=== PATIENT | female | born 1950 | race Asian ===

== ENCOUNTER 2016-10-19 08:00 | Outpatient (CLI) | payer MEDICARE, MEDICAID | END 2016-10-19 08:01 | DX: E11.65 Type 2 diabetes mellitus with hyperglycemia (principal); I10 Essential (primary) hypertension; E55.9 Vitamin D deficiency, unspecified ==

== ENCOUNTER 2017-08-25 11:36 | Outpatient (CLI) | payer MEDICARE, MEDICAID ==
[2017-08-25 19:17] LABS: BASOPHILS % (AUTO) 0.5 %; EOSINOPHILS # (AUTO) 0.1 10^3/uL (0.0-0.7); EOSINOPHILS % (AUTO) 1.9 %; HGB - HEMOGLOBIN 12.3 g/dL (12.0-16.0); LYMPHOCYTES # (AUTO) 1.9 10^3/uL (1.5-3.5); LYMPHOCYTES % (AUTO) 24.6 %; MEAN CORPUSCULAR HEMOGLOBIN 30.1 pg (27.0-31.0); MEAN CORPUSCULAR HGB CONC 33.1 g/dL (32.0-36.0); MEAN PLATELET VOLUME 9.5 fL (7.9-10.8); MONOCYTES # (AUTO) 0.3 10^3/uL (0.0-1.0); MONOCYTES % (AUTO) 4.4 %; NEUTROPHILS # (AUTO) 5.4 10^3/uL (1.5-6.6); NEUTROPHILS % (AUTO) 68.6 %; PLT - PLATELET COUNT 273 10^3/uL (130-450); RED BLOOD COUNT 4.08 10^6/uL (4.20-5.40); RED CELL DISTRIBUTION WIDTH 12.9 % (12.0-15.0); WHITE BLOOD COUNT 7.9 x10^3/uL (4.8-10.8)
[2017-08-25 19:48] LABS: ALBUMIN 3.9 g/dL (3.2-5.5); ALBUMIN/GLOBULIN RATIO 1.3 (1.0-2.2); ALKALINE PHOSPHATASE 63 IU/L (42-121); ALT ALANINE AMINOTRANSFERASE 12 IU/L (10-60); AST ASPARTATE AMINOTRANSFERASE 18 IU/L (10-42); BILIRUBIN,TOTAL 0.8 mg/dL (0.2-1.0); BUN - BLOOD UREA NITROGEN 23 mg/dL (6-20); CARBON DIOXIDE - CO2 25 mmol/L (21-32); CHLORIDE 105 mmol/L (101-111); CHOLESTEROL 154 mg/dL; CREATININE 1.4 mg/dL (0.4-1.0); GFR - MDRD 37 (>89); GLUCOSE 223 mg/dL (70-100); HDL CHOLESTEROL 51 mg/dL; LDL CHOLESTEROL,CALCULATED 85 mg/dL; LDL/HDL RATIO 1.7 (<4.4); SODIUM 139 mmol/L (135-145); TOTAL PROTEIN 6.9 g/dL (6.7-8.2); VLDL CHOLESTEROL 18 mg/dL
[2017-08-25 20:04] LABS: HEMOGLOBIN A1C 1.16 g/dL; HEMOGLOBIN A1C % 10.3 % (4.6-6.2)
== END 2017-08-25 11:37 | disposition home or self-care (01) ==
LOC: LAB.N 11:36
PROVIDERS: ATTEND Family Medicine
DX: E11.65 Type 2 diabetes mellitus with hyperglycemia (principal); E55.9 Vitamin D deficiency, unspecified; I10 Essential (primary) hypertension
CPT/HCPCS: 36415; 80053; 80061; 82306; 83036; 83721; 84443; 85025

== ENCOUNTER 2017-10-21 10:51 | Outpatient (CLI) | payer MEDICARE, MEDICAID ==
--- NOTE | 2017-10-21 19:03 | Ultrasound Report ---
RENAL ULTRASOUND: 10/21/2017 CLINICAL INDICATION: Chronic kidney disease, hypertension. COMPARISON: 01/17/2010 TECHNIQUE: Real-time scanning was performed with customer relations representative static images obtained. FINDINGS: The right kidney measures 9.4 x 4.2 x 3.7 cm, and the left kidney measures 9.5 x 4.2 x 3.7 cm. No hydronephrosis, focal renal lesion, or perinephric collection is present. Prevoid, the urinary bladder measures 8.8 x 7.3 x 5.6 cm, yielding a prevoid volume of 187 mL. The bladder wall appears normal. Bilateral ureteral jets are seen. No significant postvoid residual is present. IMPRESSION: NORMAL RENAL ULTRASOUND. TD: 10/21/2017 19:02
== END 2017-10-21 10:52 | disposition home or self-care (01) ==
LOC: DI 10:51
PROVIDERS: ATTEND Family Medicine
DX: I12.9 Hypertensive chronic kidney disease with stage 1 through stage 4 chronic kidney disease, or unspecified chronic kidney disease (principal); N18.3 Chronic kidney disease, stage 3 (moderate)
CPT/HCPCS: 76770

== ENCOUNTER 2017-10-30 04:04 | Emergency (ER) | payer MEDICARE, MEDICAID ==
[2017-10-30 04:59] LABS: BASOPHILS % (AUTO) 0.2 %; EOSINOPHILS # (AUTO) 0.1 10^3/uL (0.0-0.7); EOSINOPHILS % (AUTO) 0.4 %; HGB - HEMOGLOBIN 12.2 g/dL (12.0-16.0); LYMPHOCYTES # (AUTO) 1.4 10^3/uL (1.5-3.5); LYMPHOCYTES % (AUTO) 7.6 %; MEAN CORPUSCULAR HEMOGLOBIN 30.2 pg (27.0-31.0); MEAN CORPUSCULAR HGB CONC 33.8 g/dL (32.0-36.0); MEAN CORPUSCULAR VOLUME 89.3 fL (81.0-99.0); MEAN PLATELET VOLUME 9.8 fL (7.9-10.8); MONOCYTES # (AUTO) 1.1 10^3/uL (0.0-1.0); MONOCYTES % (AUTO) 6.1 %; NEUTROPHILS # (AUTO) 15.8 10^3/uL (1.5-6.6); NEUTROPHILS % (AUTO) 85.7 %; PLT - PLATELET COUNT 267 10^3/uL (130-450); RED BLOOD COUNT 4.05 10^6/uL (4.20-5.40); RED CELL DISTRIBUTION WIDTH 12.9 % (12.0-15.0); WHITE BLOOD COUNT 18.5 x10^3/uL (4.8-10.8)
[2017-10-30 05:09] LABS: ALBUMIN/GLOBULIN RATIO 1.3 (1.0-2.2); BILIRUBIN,TOTAL 1.2 mg/dL (0.2-1.0); CALCIUM 9.2 mg/dL (8.5-10.3); CREATININE 1.4 mg/dL (0.4-1.0); TOTAL PROTEIN 7.1 g/dL (6.7-8.2)
--- NOTE | 2017-10-30 05:34 | ED Physician Documentation ---
History of Present Illness - Stated complaint Stated Complaint: WEAK ALL OVER - Chief complaint Chief Complaint: Neuro - History obtained from History obtained from: Patient, Family - History of Present Illness Timing: How many days ago (2-3) Improved by: no ameliorating factors Worsened by: no exacerbating factors - Additonal information Additional information: cheif complaint is generalized weakness x 1-2 days, but also notes epigastric pain x 2-3 days, episodic and without apparent exacerbating or ameliorating factors Review of Systems Constitutional: reports: Reviewed and negative Cardiac: reports: Reviewed and negative Respiratory: reports: Reviewed and negative GI: reports: Abdominal Pain. denies: Nausea, Vomiting : denies: Dysuria, Frequency Musculoskeletal: reports: Reviewed and negative Neurologic: reports: Generalized weakness. denies: Focal weakness, Numbness, Confused, Altered mental status, Headache PD PAST MEDICAL HISTORY - Past Medical History Past Medical History: Yes Cardiovascular: Hypertension Neuro: CVA, TIA Endocrine/Autoimmune: Type 1 diabetes Musculoskeletal: Osteoarthritis - Past Surgical History Past Surgical History: No HEENT: Cataracts - Present Medications Home Medications: Ambulatory Orders Medication Instructions Recorded Confirmed Insulin Glargine,Hum.rec.anlog 20 units SUBQ 2100 02/22/13 10/31/17 [Lantus] Lisinopril [Prinivil] 20 mg PO DAILY 02/22/13 10/31/17 Atorvastatin [Lipitor] 10 mg PO QPM 10/23/14 10/31/17 amLODIPine [Norvasc] 10 mg PO DAILY 10/23/14 10/31/17 Clopidogrel [Plavix] 75 mg PO DAILY 01/02/16 10/31/17 cloNIDine [Catapres] 0.2 mg PO BID 10/30/17 10/31/17 hydroCHLOROthiazide 12.5 mg PO DAILY 10/30/17 10/31/17 [Hydrochlorothiazide] Aspirin [Aspirin EC] 81 mg PO DAILY 10/31/17 10/31/17 Insulin Aspart [NovoLOG] 12 unit SUBQ TIDWM 10/31/17 10/31/17 - Allergies Allergies/Adverse Reactions: Allergies Allergy/AdvReac Type Severity Reaction Status Date / Time No Known Drug Allergies Allergy Verified 10/30/17 04:29 - Social History Does the pt smoke?: No Smoking Status: Never smoker Does the pt drink ETOH?: No Does the pt have substance abuse?: No - Immunizations Immunizations are current?: No - POLST Patient has POLST: No PD ED PE NORMAL - Vitals Vital signs reviewed: Yes - General General: Alert and oriented X 3, No acute distress, Well developed/nourished - HEENT HEENT: Moist mucous membranes - Neck Neck: Supple, no meningeal sign - Cardiac Cardiac: RRR, No murmur - Respiratory Respiratory: No respiratory distress, Clear bilaterally - Abdomen Abdomen: Soft, Non tender - Derm Derm: Normal color, Warm and dry - Extremities Extremities: No edema - Neuro Neuro: Alert and oriented X 3, administrative fellow 2-12 intact, No motor deficit, No sensory deficit, Normal speech Eye Opening: Spontaneous Motor: Obeys Commands Verbal: Oriented GCS Score: 15 Results - Vitals Vitals: Oxygen O2 Source Room air - EKG (time done) No standard instances Rate: Rate (enter#) (120) Rhythm: Sinus tachycardia [place]: Normal Intervals: Normal [place] QRS: Normal Ischemia: Normal ST segments - Labs Labs: Laboratory Tests 10/30/17 10/30/17 10/30/17 04:23 04:23 04:23 WBC 18.5 H RBC 4.05 L Hgb 12.2 Hct 36.2 L MCV 89.3 MCH 30.2 MCHC 33.8 RDW 12.9 Plt Count 267 MPV 9.8 Neut # 15.8 H Lymph # 1.4 L [place] # 1.1 H Eos # 0.1 Baso # 0.0 Absolute Nucleated RBC 0.00 Nucleated RBC % 0.0 Sodium 135 Potassium 3.5 Chloride 98 L Carbon Dioxide 26 Anion Gap 11.0 BUN 35 H Creatinine 1.4 H Estimated GFR (MDRD) 37 L Glucose 324 H Calcium 9.2 Total Bilirubin 1.2 H AST 15 ALT 11 Alkaline Phosphatase 74 Troponin I < 0.04 Total Protein 7.1 Albumin 4.0 Globulin 3.1 Albumin/Globulin Ratio 1.3 Lipase 13 L Urine Color Urine Clarity Urine pH Ur Specific [place] Urine Protein Urine Glucose (UA) Urine Ketones Urine Occult Blood Urine Nitrite Urine Bilirubin Urine Urobilinogen Ur Leukocyte Esterase Urine RBC Urine WBC Ur Squamous Epith Cells Urine Bacteria Ur Microscopic Review Urine Culture Comments 10/30/17 05:45 WBC RBC Hgb Hct MCV MCH MCHC RDW Plt Count MPV Neut # Lymph # [place] # Eos # Baso # Absolute Nucleated RBC Nucleated RBC % Sodium Potassium Chloride Carbon Dioxide Anion Gap BUN Creatinine Estimated GFR (MDRD) Glucose Calcium Total Bilirubin AST ALT Alkaline Phosphatase Troponin I Total Protein Albumin Globulin Albumin/Globulin Ratio Lipase Urine Color YELLOW Urine Clarity CLEAR Urine pH 6.0 Ur Specific [place] 1.010 Urine Protein 100 H Urine Glucose (UA) >=1000 H Urine Ketones NEGATIVE Urine Occult Blood TRACE-INTA Urine Nitrite NEGATIVE Urine Bilirubin NEGATIVE Urine Urobilinogen 0.2 (NORMAL) Ur Leukocyte Esterase NEGATIVE Urine RBC 0-5 Urine WBC 4-5 Ur Squamous Epith Cells MOD Squamous H Urine Bacteria Few Ur Microscopic Review INDICATED Urine Culture Comments NOT INDICATED - Rads (name of study) chest xray Radiology: Prelim report reviewed, See rad report PD MEDICAL DECISION MAKING - ED course Complexity details: reviewed results, re-evaluated patient (tachycardia resolved during ED stay after IV fluids. she was able to ambulate to and from bathroom without assistance), considered differential, d/w patient Departure - Departure Disposition: 01 Home, Self Care Clinical Impression: Weakness Condition: Good Instructions: ED Weakness [facility] Follow-Up: Ranjan Chance MD [Primary Care Provider] - Discharge Date/Time: 10/30/17 08:02
[2017-10-30 05:55] LABS: BILIRUBIN,URINE NEGATIVE (NEGATIVE); GLUCOSE, URINE (UA) >=1000 mg/dL (NEGATIVE); KETONES,URINE (UA) NEGATIVE (NEGATIVE); LEUKOCYTE ESTERASE, URINE NEGATIVE (NEGATIVE); NITRITE,URINE NEGATIVE (NEGATIVE); OCCULT BLOOD,URINE TRACE-INTA (NEGATIVE); PROTEIN,URINE 100 mg/dL (NEGATIVE); UROBILINOGEN,URINE 0.2 (NORMAL) E.U./dL (NORMAL)
[2017-10-30] MEDS ORDERED: SODIUM CHLORIDE 0.9% 500 ML IV STA (05:56)
[2017-10-30 06:04] LABS: BACTERIA,URINE Few /HPF (None Seen); CLARITY,URINE CLEAR (CLEAR); RBC,URINE 0-5 /HPF (0-5); SQUAMOUS EPITHELIAL CELL,UR MOD Squamous (<= Few)
--- NOTE | 2017-10-30 06:55 | XRAY Report ---
EXAM: CHEST RADIOGRAPHY EXAM DATE: 10/30/2017 06:34 AM. CLINICAL HISTORY: Weakness, abnormal breath sounds. COMPARISON: 01/05/2016. TECHNIQUE: 2 views. FINDINGS: Lungs/Pleura: No alveolar consolidation or pleural effusion seen. No pneumothorax. Mediastinum: Heart size upper normal. Other: Chronic right acromioclavicular separation. IMPRESSION: 1. Borderline heart size. No acute abnormality seen. [facility] Referring Provider Line: [phone] SITE ID: [id number]
--- NOTE | 2017-10-30 06:55 | XRAY Preliminary Report ---
Exam: XR CHEST 2 VIEW X-RAY IMPRESSION: 1. Borderline heart size. No acute abnormality seen. [facility] SITE ID: [id number]
[2017-10-30 07:10] VITALS: BP 167/75
== END 2017-10-30 08:02 | disposition home or self-care (01) ==
LOC: ED 04:04
DX: R53.1 Weakness (principal); I10 Essential (primary) hypertension; E10.9 Type 1 diabetes mellitus without complications; Z86.73 Personal history of transient ischemic attack (TIA), and cerebral infarction without residual deficits; M19.90 Unspecified osteoarthritis, unspecified site; Z79.4 Long term (current) use of insulin; Z79.82 Long term (current) use of aspirin; Z79.02 Long term (current) use of antithrombotics/antiplatelets
CPT/HCPCS: 36415; 71046; 80053; 81001; 81003; 83690; 84484; 85025; 87086; 93005; 99285

== ENCOUNTER 2017-10-30 14:06 | Inpatient (IN) | payer MEDICARE, MEDICAID ==
--- NOTE | 2017-10-30 15:11 | ED Physician Documentation ---
PD HPI FOCAL NEURO - Stated complaint Stated Complaint: LEG NUMBNESS - Chief complaint Chief Complaint: Ext Problem - History obtained from History obtained from: Patient, Family - History of Present Illness Timing - onset: Enter time (1100), Today Timing - duration: Hours Timing - details: Abrupt onset, Still present Time of symptom onset unknown: Time of onset unknown Severity of deficit: Moderate Weakness: Arm, Hand, Leg, Foot, Left Numbness: Hand, Leg, Left Associated symptoms: Nausea / vomiting Contributing factors: negative: Anticoagulated Baseline status: positive: A&OX3, ambulatory, indep Similar symptoms before: Diagnosis (CVA) Recently seen: Emergency Dept - Additional information Additional information: 67-year-old [place] woman was seen in the emergency department earlier today for generalized weakness. She was able to speak normally and walk normally on discharge and this morning at her home she was walking and had a fall with left leg weakness. She continues to have left with leg weakness she has some dysarthric speech according to her friend and she has some weakness and incoordination of left arm and hand. She thinks this fall happened around 11: 00 this morning and her friend notes that she was normal last night when she talked to her last. She is documented here in the emergency department as being normal at discharge from the emergency department at about 830 this morning. Review of Systems Constitutional: reports: Fatigue. denies: Fever, Chills Eyes: denies: Decreased vision Ears: denies: Ear pain Nose: denies: Rhinorrhea / runny nose, Congestion Throat: denies: Sore throat Cardiac: denies: Chest pain / pressure, Palpitations Respiratory: denies: Dyspnea, Cough GI: reports: Nausea, Vomiting. denies: Abdominal Pain : denies: Dysuria, Frequency Skin: denies: Rash, Lesions Musculoskeletal: denies: Neck pain, Back pain, Extremity pain Neurologic: reports: Generalized weakness, Focal weakness, Numbness, Difficulty speaking. denies: Confused, Altered mental status, Head injury, LOC PD PAST MEDICAL HISTORY - Past Medical History Cardiovascular: Hypertension Neuro: CVA, TIA Endocrine/Autoimmune: Type 2 diabetes Musculoskeletal: Osteoarthritis - Past Surgical History Past Surgical History: No HEENT: Cataracts - Present Medications Home Medications: Ambulatory Orders Medication Instructions Recorded Confirmed Insulin Glargine,Hum.rec.anlog 25 units SUBQ 2100 02/22/13 01/03/16 [Lantus] Lisinopril [Prinivil] 20 mg PO DAILY 02/22/13 01/03/16 Atorvastatin [Lipitor] 10 mg PO QPM 10/23/14 01/03/16 amLODIPine [Norvasc] 10 mg PO DAILY 10/23/14 01/03/16 Insulin Lispro [Humalog Kwikpen] 10 unit SQ BID 07/15/15 01/03/16 Clopidogrel [Plavix] 75 mg PO DAILY 01/02/16 01/03/16 cloNIDine [Catapres] 0.2 mg PO BID 10/30/17 10/30/17 hydroCHLOROthiazide 12.5 mg PO DAILY 10/30/17 10/30/17 [Hydrochlorothiazide] - Allergies Allergies/Adverse Reactions: Allergies Allergy/AdvReac Type Severity Reaction Status Date / Time No Known Drug Allergies Allergy Verified 10/30/17 04:29 - Social History Does the pt smoke?: No Smoking Status: Never smoker Does the pt drink ETOH?: No Does the pt have substance abuse?: No - Immunizations Immunizations are current?: No - POLST Patient has POLST: No PD ED PE NORMAL - Vitals Vital signs reviewed: Yes (Hypertensive mild) - General General: No acute distress, Well developed/nourished - HEENT HEENT: Atraumatic, PERRL, EOMI - Neck Neck: Supple, no meningeal sign, No bony TTP - Cardiac Cardiac: RRR, No murmur - Respiratory Respiratory: No respiratory distress, Clear bilaterally - Abdomen Abdomen: Soft, Non tender - Back Back: No CVA TTP, No spinal TTP - Derm Derm: Normal color, Warm and dry, No rash - Extremities Extremities: No deformity, No edema - Neuro Neuro: Other (The speech is dysarthric there is left leg weakness greater than the weakness to the left arm. There is incoordination of the left LE worse than the upper ext. ) Eye Opening: Spontaneous Motor: Obeys Commands Verbal: Oriented GCS Score: 15 - Psych Psych: Normal mood, Normal affect NIHSS - Time Time: 15:10 - Level of Consciousness Level of consciousness: (0) Alert, Keenly responsive LOC Questions: (0) Answers both Q's correct LOC Commands: (0) Performs both correctly - Gaze Best Gaze: (0) Normal - Visual Visual: (0) No loss - Facial Palsy Facial Palsy: (1) Minor paralysis - Motor Arms (both separate) Motor Arm (right): (0) No drift Motor Arm (left): (1) Drift - Motor Legs (both separate) Motor Leg (right): (0) No drift Motor Leg (left): (2) Some effort against gravity - Limb Ataxia Limb Ataxia: (1) Present in 1 limb - Sensory Sensory: (1) [id number] loss - Best Language Best Language: (0) No aphasia - Dysarthria Dysarthria: (1) [id number] dysarthria - Extinction and Inattention (formally neg Extinction and inattention: (0) No abnormality - Total Score/Results Total Score/Result: 7 Results - Vitals Vitals: Vital Signs - 24 hr 10/30/17 10/30/17 10/30/17 14:11 15:27 16:31 Temperature 36.6 C Heart Rate 84 65 76 Respiratory 16 12 16 Rate Blood Pressure 150/59 H 161/73 H 169/60 H O2 Saturation 100 99 100 Oxygen O2 Source Room air - EKG (time done) 1527 Rate: Rate (enter#) (64) Rhythm: NSR [place]: Normal Intervals: Normal [place] QRS: Normal Ischemia: Normal ST segments Compare to prior EKG: Changed from prior EKG (SPT earlier today rate has decreased from 120 to 64. ) Computer interpretation: Agree with computer - Labs Labs: Laboratory Tests 10/30/17 10/30/17 10/30/17 15:15 15:15 15:15 WBC 12.2 H RBC 3.64 L Hgb 10.6 L Hct 32.6 L MCV 89.5 MCH 29.2 MCHC 32.7 RDW 12.9 Plt Count 217 MPV 8.5 Neut # 9.3 H Lymph # 2.2 [place] # 0.6 Eos # 0.1 Baso # 0.0 Absolute Nucleated RBC 0.00 Nucleated RBC % 0.0 Sodium 135 Potassium 3.9 Chloride 102 Carbon Dioxide 28 Anion Gap 5.0 L BUN 31 H Creatinine 1.5 H Estimated GFR (MDRD) 34 L Glucose 322 H Calcium 8.7 Total Bilirubin 0.7 AST 15 ALT < 10 L Alkaline Phosphatase 68 Troponin I < 0.04 Total Protein 6.3 L Albumin 3.4 Globulin 2.9 Albumin/Globulin Ratio 1.2 Lipase < 10 L - Rads (name of study) CT head without Radiology: Prelim report reviewed (1. No indication to withold thrombolytic therapy 2. Loss of mcmanus-white matter differentiation in the region of the sylvian fissure is low in attenuation and may represent encephalomalacia but acute on chronic infarct cannot be excluded.), EMP read indepedently, See rad report CTA head Radiology: Prelim report reviewed (Impression: Post head CT: No abnormal parenchymal enhancement. No masses. CTA: 30-40% tapering stenosis of the distal right M1 segment. 70% stenosis at the proximal right A2 segment. 30-40 % stenosis at the proximal left A1 segment. Up to 70% stenosis of the left A2 segment 40-50% stenosis of the right vertebral artery as it crosses the dural ring. 70-80% mid distal basilar artery focal stenosis. Greater than 80% stenosis of the left P2 segment. There is distal flow.), EMP read indepedently , See rad report CT angiogram neck Radiology: Prelim report reviewed (Impression: 1. Patent bilateral carotid arteries with only trivial or mild calcific atherosclerotic disease as described , no stenosis. 2. Left vertebral artery: Patent with proximal tortuosity. 3. Right vertebral artery: Patent but short segment 70% suspected stenosis V3 V4 junction, otherwise patent to the vertebrobasilar junction. 4. Incidental note of near occlusive atherosclerotic narrowing mid basilar artery, see accompanied CT angiogram brain for more details.), EMP read indepedently, See rad report Procedures - IVC sono (time) 1500 Bedside IVC sono: IVC measures (cm) (1.61), Euvolemia PD MEDICAL DECISION MAKING - ED course Complexity details: reviewed old records, reviewed results, re-evaluated patient , considered differential, d/w patient, d/w family ED course: 67 y/o female with general weakness this morning has developed left sided weakness and the time of onset is not obvious. She arrived home from the hospital at about 830am and apparently then her speech was normal. She had a fall in her home at 11am and this was attributed to left knee weakness and following that she has had dysarthric speech. She currently has an NIHSS of 7 with left sided weakness and incoordination as well as dysarthria. She is not a candidate for tPA as her onset of stroke symptoms is outside of the therapeutic window and uncertain as to the specific onset. She was given IV saline 500ml during her visit to the ED this morning. She is normo-volemic on interrogation of the IVC this afternoon. CT of the head was without evidence of hemorrhage and CTA of the head and neck are with findings consistent with multiple areas of stenosis. Large thrombus is not seen. The patient will need admission for stroke therapy. Departure - Departure Disposition: 66 [facility] DC/Xfer Clinical Impression: Cerebrovascular accident (CVA) Qualifiers: CVA mechanism: unspecified Qualified Code(s): I63.9 - Cerebral infarction, unspecified
[2017-10-30 15:24] LABS: BASOPHILS % (AUTO) 0.3 %; EOSINOPHILS # (AUTO) 0.1 10^3/uL (0.0-0.7); EOSINOPHILS % (AUTO) 0.9 %; HGB - HEMOGLOBIN 10.6 g/dL (12.0-16.0); LYMPHOCYTES # (AUTO) 2.2 10^3/uL (1.5-3.5); LYMPHOCYTES % (AUTO) 17.7 %; MEAN CORPUSCULAR HEMOGLOBIN 29.2 pg (27.0-31.0); MEAN CORPUSCULAR HGB CONC 32.7 g/dL (32.0-36.0); MEAN CORPUSCULAR VOLUME 89.5 fL (81.0-99.0); MEAN PLATELET VOLUME 8.5 fL (7.9-10.8); MONOCYTES # (AUTO) 0.6 10^3/uL (0.0-1.0); MONOCYTES % (AUTO) 5.1 %; NEUTROPHILS # (AUTO) 9.3 10^3/uL (1.5-6.6); PLT - PLATELET COUNT 217 10^3/uL (130-450); RED BLOOD COUNT 3.64 10^6/uL (4.20-5.40); RED CELL DISTRIBUTION WIDTH 12.9 % (12.0-15.0); WHITE BLOOD COUNT 12.2 x10^3/uL (4.8-10.8)
[2017-10-30 15:37] LABS: ALBUMIN 3.4 g/dL (3.2-5.5); ALBUMIN/GLOBULIN RATIO 1.2 (1.0-2.2); ALKALINE PHOSPHATASE 68 IU/L (42-121); ALT ALANINE AMINOTRANSFERASE < 10 IU/L (10-60); AST ASPARTATE AMINOTRANSFERASE 15 IU/L (10-42); BILIRUBIN,TOTAL 0.7 mg/dL (0.2-1.0); BUN - BLOOD UREA NITROGEN 31 mg/dL (6-20); CALCIUM 8.7 mg/dL (8.5-10.3); CARBON DIOXIDE - CO2 28 mmol/L (21-32); CHLORIDE 102 mmol/L (101-111); CREATININE 1.5 mg/dL (0.4-1.0); GFR - MDRD 34 (>89); GLUCOSE 322 mg/dL (70-100); LIPASE < 10 U/L (22-51); SODIUM 135 mmol/L (135-145); TOTAL PROTEIN 6.3 g/dL (6.7-8.2)
--- NOTE | 2017-10-30 15:58 | CT Report ---
EXAM: CT HEAD EXAM DATE: 10/30/2017 03:40 PM. CLINICAL HISTORY: Left sided weakness. COMPARISON: None. TECHNIQUE: Multiaxial CT images were obtained from the foramen magnum to the vertex. Reformats: Coron al. IV contrast: None. In accordance with CT protocol optimization, one or more of the following dose reduction techniques w ere utilized for this exam: automated exposure control, adjustment of mA and/or KV based on patient s ize, or use of iterative reconstructive technique. FINDINGS: Parenchyma: No intracranial hemorrhage. No mass effect or midline shift. There is an area of loss of the mcmanus-white matter differentiation along the left sylvian fissure. Extraaxial Spaces: Normal for age. No subdural or epidural collections identified. Ventricles: Normal in size and position. Sinuses and Orbits: Imaged paranasal sinuses, orbits, and mastoids show no significant abnormality. Bones: No evidence of fracture or calvarial defect. Other: None. IMPRESSION: 1. Indication thrombolytic therapy. 2. Loss of the mcmanus-white matter differentiation in the region of the sylvian fissure is low in atten uation and may represent supple malacia but acute on chronic infarct cannot be excluded. Findings discussed immediately with Dr. Savage by phone on 10/30/2017 at 3:55 PM [facility] Referring Provider Line: [phone] SITE ID: [id number]
[2017-10-30] MEDS ORDERED: IOPAMIDOL-300 100 ML VIAL ONE (16:07)
[2017-10-30] MEDS ORDERED: IOPAMIDOL-300 100 ML VIAL IVP ONE ×2 (16:15→16:33)
--- NOTE | 2017-10-30 16:47 | CT Report ---
EXAM: CT ANGIOGRAM NECK EXAM DATE: 10/30/2017 04:22 PM. CLINICAL HISTORY: Left sided weakness. COMPARISON: Accompanying CT angiogram head. TECHNIQUE: Routine axial helical imaging was performed from the skull base through the aortic arch. R econstructions: Routine multiplanar 3D MIP reconstructions. IV Contrast: 80 cc Isovue 370. Evaluation of arterial stenosis is based on a NASCET method of measurement. In accordance with CT protocol optimization, one or more of the following dose reduction techniques w ere utilized for this exam: automated exposure control, adjustment of mA and/or KV based on patient s ize, or use of iterative reconstructive technique. Findings: Relevant images are indicated (image number, series number). Aortic arch is widely patent, normal configuration of the great vessels. Left carotid artery: Widely patent with only mild calcific atherosclerotic disease, no stenosis. Right carotid artery: Patent with trivial calcific atherosclerotic disease. Left vertebral artery: Patent with proximal tortuosity. Right vertebral artery: Patent with moderate focal suspected atherosclerotic narrowing at the V3 V4 j unction, with at least short segment 70% narrowing (376, 2), otherwise patent to the vertebrobasilar junction. There is significant nearly occlusive disease mid basilar artery (428, 2). Straightening of the cervical spine with only mild cervical spondylosis, no suspicious bony lesions. Impressions: 1. Patent bilateral carotid arteries with only trivial or mild calcific atherosclerotic disease as de scribed, no stenosis. 2. Left vertebral artery: Patent with proximal tortuosity. 3. Right vertebral artery: Patent but short segment 70% suspected stenosis V3 V4 junction, otherwise patent to the vertebrobasilar junction. 4. Incidental note of near occlusive atherosclerotic narrowing mid basilar artery, CT accompanied CT angiogram brain for more details. [facility] Referring Provider Line: [phone] SITE ID: [id number]
--- NOTE | 2017-10-30 16:52 | CT Preliminary Report ---
Exam: CT HEAD ANGIO Impression: Postcontrast head CT: No abnormal parenchymal enhancement. No masses. Head CTA: 30-40% tapering stenosis of the distal right M1 segment. 70% stenosis of the proximal right A2 segment. 30-40% stenosis of the proximal left A1 segment. Up to 70% stenosis of the left A2 segment. 40-50% stenosis of the right vertebral artery as it crosses the dural ring. 70-80% mid distal basilar artery focal stenosis. Greater than 80% stenosis of the left P2 segment. There is distal flow. SITE ID: [id number]
--- NOTE | 2017-10-30 17:09 | CT Report ---
EXAM: CTA HEAD COMPARISON: CT head, 10/30/2017. CLINICAL HISTORY: Left-sided weakness. TECHNIQUE: Axial CT images were obtained through the head during arterial phase after intravenous Isovue 300. Post head CT is performed. 3-dimensional MIP reconstructions are created from axial data. Stenosis is measured by NASCET type criteria. In accordance with CT protocol optimization, one or more of the following dose reduction techniques w ere utilized for this exam: automated exposure control, adjustment of mA and/or KV based on patient s ize, or use of iterative reconstructive technique. FINDINGS: Postcontrast head CT: No abnormal parenchymal enhancement. No masses. Ventricular size is normal. Redemonstrated is a subacute-appearing left inferior frontal infarct, as before. Ventricular size is normal. No unexpected intra-or extra-axial fluid collections. Mastoids are clear. No nasopharyngeal mass. Temporomandibular joints are normally located. Zygomatic arches are intact. Head CTA: Right internal carotid artery: No evident stenosis or aneurysms identified through the terminus. The right internal carotid artery i s tortuous. Right M1, M2 and visualized distal segments show no focal stenosis, there is tapering reymundo nosis approximately 30-40% of the distal right M1 segment. Flow is demonstrated in the distal right M CA vessels. Right A1, A2 and visualized distal segments are relatively unremarkable. There is apparent high-grade stenosis at the A2 segment approximately 70% (4, 119). Distal flow is de monstrated. Left internal carotid artery: No evident stenosis or aneurysms identified through the terminus. Left A1 segment proximally shows 30 -40% stenosis. Left A2 and visualized distal segments show multiple areas of apparent stenosis, measu ring up to 70% (4, 123). Left M1 segment is irregular, without focal high-grade stenosis. There is di stal flow. Posterior circulation: Intracranial vertebral arteries are left-sided dominant. Right vertebral artery shows calcification a s it across the dural rings, stenosis measures at least 40-50%. Left PICA origin is well visualized, there is flow in distal left PICA. Right PICA origin is well-visualized, there is flow in the distal right PICA. Basilar artery shows a high-grade stenosis approaching the terminus, up to approximately 70-80%, best demonstrated on series 8 image 73. There is distal flow. Right P1, P2 and visualized dis gin segments are unremarkable. A prominent left P-comm is noted, with corresponding hypoplastic left P1 segment. Left P2 segment shows high-grade, greater than 80% stenosis (4, 120). There is distal sarah w. Dural venous sinuses and deep venous structures are not well evaluated. IMPRESSION: Postcontrast head CT: No abnormal parenchymal enhancement. No masses. CTA: 30-40% tapering stenosis of the distal right M1 segment. 70% stenosis at the proximal right A2 segment. 30-40% stenosis at the proximal left A1 segment. Up to 70% stenosis of the left A2 segment. 40-50% stenosis of the right vertebral artery as it across the dural ring. 70-80% mid distal basilar artery focal stenosis. Greater than 80% stenosis of the left P2 segment. There is distal flow. Referring Provider Line: [phone] SITE ID: [id number]
[2017-10-30 17:48] LABS: BILIRUBIN,URINE NEGATIVE (NEGATIVE); GLUCOSE, URINE (UA) >=1000 mg/dL (NEGATIVE); KETONES,URINE (UA) NEGATIVE (NEGATIVE); LEUKOCYTE ESTERASE, URINE SMALL (NEGATIVE); NITRITE,URINE NEGATIVE (NEGATIVE); OCCULT BLOOD,URINE TRACE-LYSE (NEGATIVE); PROTEIN,URINE 100 mg/dL (NEGATIVE); UROBILINOGEN,URINE 0.2 (NORMAL) E.U./dL (NORMAL)
[2017-10-30 17:51] LABS: CLARITY,URINE HAZY (CLEAR)
[2017-10-30] MEDS ORDERED: SODIUM CHLORIDE FLUSH 0.9% 10 ML SYRINGE IVP PRN (17:58)
[2017-10-30] MEDS ORDERED: ONDANSETRON 4 MG/2 ML VIAL IVP PRN (17:58)
[2017-10-30] MEDS ORDERED: ACETAMINOPHEN 325 MG TABLET PO PRN (17:58)
[2017-10-30 18:02] LABS: BACTERIA,URINE Moderate /HPF (None Seen); RBC,URINE 0-5 /HPF (0-5); SQUAMOUS EPITHELIAL CELL,UR FEW Squamous (<= Few)
[2017-10-30] MEDS ORDERED: ASPIRIN 325 MG TABLET PO SCH (18:14)
--- NOTE | 2017-10-30 18:31 | HISTORY & PHYSICAL EXAMINATION ---
Chief Complaint - Chief Complaint Chief Complaint: left side weakness History of Present Illness - Admitted From Admitted From:: ER - History Obtained From History obtained from: pt - History of Present Illness HPI Comment/Other: Ms. Greer is 67-year-old female with a PMH significant for CVA, TIA, DM2, HTN , Ostroarthritis, who present ER complaint of left side weakness. Pt came to ER this morning for complaining of generalized weakness. Per ER provider's report, pt can speak normally and walk normally. Pt was discharged to home. Around 11: 00am at today morning, pt had left side weakness including upper and lower extremities, and had a fall. Fortunately no injury was reported. Also pt appeared some dysarthric speech. Pt had normal speech on last night according to her friend. I saw pt at 6 pm. Pt did present left upper and lower extremities weakness and some dysarthric speech. pt denies chest pain, fever, chill, shortness of breathing, headache. No vision changing. Pt had CT of head, CTA of brain and neck done by ER. CTA of brain and neck reveals the findings consistent with multiple areas of stenosis but without large thrombus. CT of head does not reveal evidence of hemorrhage. Lab test in the ER show elevated glucose level, baseline of BUN and Creatinine level, and slight elevated WBC. Pt is admitted for stroke evaluation and treatment. History - Past Medical History Cardiovascular: reports: Hypertension Neuro: reports: CVA, TIA Endocrine/Autoimmune: reports: Type 2 diabetes Musculoskeletal: reports: Osteoarthritis MRSA Hx?: No - Past Surgical History HEENT: reports: Cataracts - Family & Social History Family History: Mother: , Alzheimer's Disease, Father: , Alcoholism Family History Comment/Other: pt is [place] woman, is living with family at [facility] Living arrangement: At home Living Situation: With family - Substance History Use: Uses substance without health or social issues: NONE Abuse: Recurrent use of substance despite neg consequences: NONE Dependence: Experiences withdrawal or developed tolerances: NONE - POLST Patient has POLST: No POLST Status: Full Code Meds/Allgy - Home Medications Home Medications: Ambulatory Orders Medication Instructions Recorded Confirmed Insulin Glargine,Hum.rec.anlog 20 units SUBQ 2100 02/22/13 10/31/17 [Lantus] Lisinopril [Prinivil] 20 mg PO DAILY 02/22/13 10/31/17 Atorvastatin [Lipitor] 10 mg PO QPM 10/23/14 10/31/17 amLODIPine [Norvasc] 10 mg PO DAILY 10/23/14 10/31/17 Clopidogrel [Plavix] 75 mg PO DAILY 01/02/16 10/31/17 cloNIDine [Catapres] 0.2 mg PO BID 10/30/17 10/31/17 hydroCHLOROthiazide 12.5 mg PO DAILY 10/30/17 10/31/17 [Hydrochlorothiazide] Aspirin [Aspirin EC] 81 mg PO DAILY 10/31/17 10/31/17 Insulin Aspart [NovoLOG] 12 unit SUBQ TIDWM 10/31/17 10/31/17 - Allergies Allergies/Adverse Reactions: Allergies Allergy/AdvReac Type Severity Reaction Status Date / Time No Known Drug Allergies Allergy Verified 10/30/17 04:29 Review of Systems - Constitutional Constitutional: reports: Fatigue, Weakness. denies: Fever, Chills, Malaise, Poor appetite, Diaphoresis, Night sweats, Weight loss - Eyes Eyes: denies: Pain, Irritation, Amaurosis, Blurred vision, Spots in vision, Field loss, Vision loss, Dipolpia - Ears, Nose & Throat Ears, Nose & Throat: denies: Ear pain, Hearing loss, Hearing aids, Tinnitus, Vertigo, Nosebleeds, Nasal congestion, Sore throat, Mouth lesions, Bleeding gums - Cardiovascular Cariovascular: denies: Irregular heart rate, Palpitations, Chest pain, Edema, Lightheadedness, Syncope, Exertional dyspnea, Orthopnea - Respiratory Respiratory: denies: Cough, Sputum production, Wheezing, Snoring, Hemoptysis, Orthopnea, SOB at rest, SOB with exertion, Apnea - Gastrointestinal Gastrointestinal: denies: Abdominal pain, Abdominal distention, Constipation, Diarrhea, Change in bowel habits, Rectal bleeding, Black stools, Bloody stools, Nausea, Vomiting, Bile emesis, Jan blood emesis, Coffee grounds emesis, Reflux /heartburn - Genitourinary Genitourinary: denies: Dysuria, Frequency, Urgency, Hematuria, Incontinence, Flank pain, Nocturia, Urethral discharge - Musculoskeletal Musculoskeletal: denies: Muscle pain, Back pain, Muscle aches, Stiffness, Limited range of motion, Muscle weakness, Joint swelling - Integumentary Integumentary: denies: Rash, Pruritis, Lesions, Dryness, Lumps, Pigment changes - Neurological Neurological: reports: General weakness, Focal weakness, Abnormal gait, Incoordination, Slurred speech. denies: Headache, Dizziness, Numbness, Seizures - Psychiatric Psychiatric: denies: Depression, Anxiety, Suicidal, Delusions, Hallucinations, Homicidal - Endocrine Endocrine: denies: Polyuria, Polydypsia, Polyphagia - Hematologic/Lymphatic Hematologic/Lymphatic: denies: Petechiae, Blood clots, Lymphadenopathy, Bleeding tendencies Exam - Vital Signs Reviewed Vital Signs: Yes Vital Signs: Vital Signs x48h Temp Pulse Resp BP Pulse Ox 10/30/17 17:54 73 14 178/98 H 100 10/30/17 16:31 76 16 169/60 H 100 10/30/17 15:27 65 12 161/73 H 99 10/30/17 14:11 36.6 C 84 16 150/59 H 100 - Physical Exam General Appearance: positive: No acute distress, Alert. negative: Lethargic Eyes Bilateral: positive: Normal inspection, PERRL, No lid inflammation, Conjunctivae nml ENT: positive: ENT inspection nml, Pharynx nml, No signs of dehydration. negative: Purulent nasal drainage, Pharyngeal erythema, Oral lesions, Dry mucous membranes Neck: positive: Nml inspection, Thyroid nml, No JVD, Trachea midline. negative : Thyromegaly, Lymphadenopathy (R), Lymphadenopathy (L), Stiff neck, Carotid bruit, Swelling/bruising, Tracheal deviation Respiratory: positive: Chest non-tender, No respiratory distress, Breath sounds nml. negative: Wheezes, Rales, Rhonchi Cardiovascular: positive: Regular rate & rhythm, No murmur, No gallop. negative : Irregularly irregular, Extrasystoles, Tachycardia, Bradycardia, Systolic murmur, Diastolic murmur Peripheral Pulses: positive: 2+ Abdomen: positive: Non-tender, No organomegaly, Nml bowel sounds, No distention. negative: Tenderness, Guarding, Rebound Back: positive: Nml inspection. negative: CVA tenderness (R), CVA tenderness (L ) Skin: positive: Color nml, No rash, Warm, Dry. negative: Cyanosis, Diaphoresis , Pallor Extremities: positive: Non-tender, Nml appearance. negative: Calf tenderness, Joint swelling, Austin's sign/cords Neurologic/Psychiatric: positive: Oriented x3, Weakness, Slurred/abnml speech. negative: Sensory loss, Facial droop, Depressed mood/affect Conclusion/Plan - Problem List (1) Stroke Conclusion/Plan: left side weakness including upper and lower extremities, persisting pt had CT of head, CTA of brain and neck. order MRI and ECHO, follow up ASA, resume home meds Plavix Lipitor from 10 mg, home meds, to 20 mg tele and vital monitor hold BP meds, add PRN BP order PT/OT pt had clinic swallow test, pt passed. start on Carb-control diet (2) T2DM (type 2 diabetes mellitus) Conclusion/Plan: uncontrolled DM2, A1C 10.7 resume Lantus start slide scale, ACHS tightly control her blood glucose daily lab, vital monitor hypoglycemia protocol (3) HTN (hypertension) Conclusion/Plan: will hold BP, vital monitor , order PRN BP meds (4) Osteoarthritis Conclusion/Plan: stable, resume home meds (5) DVT prophylaxis Conclusion/Plan: SCD and Lovenox - Lab Results Fish Bones: 10/31/17 04:55 10/31/17 04:55 Core Measures - Anticipated LOS I expect patient to be DC'd or transferred within 96 hours.: Yes - DVT/VTE - Prophylaxis VTE/DVT Device ordered at admit?: Yes VTE/DVT Prophylaxis med ordered at admit?: Yes - Stroke - Rehab Assessment Rehab services assessment to be ordered?: Yes - AMI - Statin at Admit Aspirin Prescribed on Admit: Yes
[2017-10-30] MEDS: SODIUM CHLORIDE 0.9% 1,000 ML IV SCH (18:53)
[2017-10-30 18:57] LABS: HB2 TOTAL 11.3 g/dL; HEMOGLOBIN A1C 1.06 g/dL; HEMOGLOBIN A1C % 10.7 % (4.6-6.2)
[2017-10-30] MEDS: CLOPIDOGREL 75 MG TABLET PO SCH (19:38)
[2017-10-30] MEDS ORDERED: INSULIN ASPART 300 UNIT/3 ML PEN SUBQ SCH (21:00)
[2017-10-30] MEDS ORDERED: INSULIN GLARGINE 300 UNIT/3 ML PEN SUBQ SCH (21:00)
[2017-10-31] MEDS: SODIUM CHLORIDE FLUSH 0.9% 10 ML SYRINGE IVP SCH ×3 (03:39→18:27)
[2017-10-31 05:57] LABS: EOSINOPHILS # (AUTO) 0.3 10^3/uL (0.0-0.7); LYMPHOCYTES # (AUTO) 3.3 10^3/uL (1.5-3.5); MEAN CORPUSCULAR HEMOGLOBIN 29.8 pg (27.0-31.0); MONOCYTES # (AUTO) 0.6 10^3/uL (0.0-1.0); NEUTROPHILS # (AUTO) 4.2 10^3/uL (1.5-6.6); RED CELL DISTRIBUTION WIDTH 12.9 % (12.0-15.0)
[2017-10-31 06:00] LABS: BASOPHILS % (AUTO) 0.4 %; EOSINOPHILS % (AUTO) 3.5 %; HGB - HEMOGLOBIN 10.8 g/dL (12.0-16.0); MEAN CORPUSCULAR HGB CONC 33.4 g/dL (32.0-36.0); MEAN CORPUSCULAR VOLUME 89.3 fL (81.0-99.0); MEAN PLATELET VOLUME 9.7 fL (7.9-10.8); MONOCYTES % (AUTO) 7.1 %; PLT - PLATELET COUNT 225 10^3/uL (130-450); RED BLOOD COUNT 3.62 10^6/uL (4.20-5.40); WHITE BLOOD COUNT 8.4 x10^3/uL (4.8-10.8)
[2017-10-31 06:09] LABS: ALBUMIN 3.5 g/dL (3.2-5.5); ALBUMIN/GLOBULIN RATIO 1.2 (1.0-2.2); BILIRUBIN,TOTAL 0.7 mg/dL (0.2-1.0); CALCIUM 9.1 mg/dL (8.5-10.3); CREATININE 1.3 mg/dL (0.4-1.0); MAGNESIUM 1.9 mg/dL (1.7-2.8); TOTAL PROTEIN 6.4 g/dL (6.7-8.2)
[2017-10-31 06:16] LABS: CHOL/HDL RATIO 2.7 (<4.4); CHOLESTEROL 137 mg/dL; HDL CHOLESTEROL 50 mg/dL; LDL CHOLESTEROL,CALCULATED 71 mg/dL; LDL/HDL RATIO 1.4 (<4.4); VLDL CHOLESTEROL 16 mg/dL
[2017-10-31] MEDS ORDERED: INSULIN GLARGINE 300 UNIT/3 ML PEN SUBQ SCH (07:44)
[2017-10-31] MEDS: INSULIN ASPART 300 UNIT/3 ML PEN SUBQ SCH ×4 (07:52→21:34)
[2017-10-31] MEDS: SODIUM CHLORIDE 0.9% 1,000 ML IV SCH ×2 (08:32→21:53)
[2017-10-31] MEDS: cefTRIAXone 1 GM in SODIUM CHLORIDE 0.9% MINIBAG 100 ML IV SCH (08:34)
[2017-10-31] MEDS: POLYETHYLENE GLYCOL 3350 17 GM PACKET PO SCH (08:36)
[2017-10-31] MEDS: ASPIRIN 325 MG TABLET PO SCH (08:37)
[2017-10-31] MEDS: ATORVASTATIN 10 MG TABLET PO SCH (08:37)
[2017-10-31] MEDS: CLOPIDOGREL 75 MG TABLET PO SCH (08:37)
[2017-10-31] MEDS: ENOXAPARIN 40 MG/0.4 ML SYRINGE SUBQ SCH (08:37)
[2017-10-31] MEDS: FAMOTIDINE 20 MG TABLET PO SCH (08:37)
[2017-10-31] MEDS ORDERED: cefTRIAXone 1 GM VIAL IVP SCH (09:00)
--- NOTE | 2017-10-31 12:23 | PROVIDER PROGRESS NOTE ---
Subjective - Prog Note Date Prog Note Date: 10/31/17 - Subjective Pt reports feeling: No change Subjective: stable, pt report she still has some weakness at upper and lower extremities. No other complaints. No CP, SOB, fever, chill, cough. Current Medications - Current Medications Current Medications: Active Medications Acetaminophen (Tylenol) 650 mg PO Q4HR PRN PRN Reason: Pain 1 to 4 Last Admin: 10/30/17 19:38 Dose: 650 mg Aspirin (Scott) 325 mg PO DAILY [facility] Last Admin: 10/31/17 08:37 Dose: 325 mg Atorvastatin Calcium (Lipitor) 20 mg PO DAILY [facility] Last Admin: 10/31/17 08:37 Dose: 20 mg Clonidine HCl (Catapres) 0.1 mg PO BID PRN PRN Reason: Hypertensive Emergency Clopidogrel Bisulfate (Plavix) 75 mg PO DAILY [facility] Last Admin: 10/31/17 08:37 Dose: 75 mg Enoxaparin Sodium (Lovenox) 40 mg SUBQ DAILY [facility] Last Admin: 10/31/17 08:37 Dose: 40 mg Famotidine (Pepcid) 20 mg PO DAILY [facility] Last Admin: 10/31/17 08:37 Dose: 20 mg Sodium Chloride (Normal Saline 0.9%) 1,000 mls @ 75 mls/hr IV .[id number] [facility] Last Admin: 10/31/17 08:32 Dose: 75 mls/hr Ceftriaxone Sodium 1 gm/ (Sodium Chloride) 100 mls @ 200 mls/hr IV DAILY [facility] Last Infusion: 10/31/17 10:40 Dose: Infused Insulin Aspart (Novolog) 1 - 9 unit SUBQ 0800,1200,1700,2100 [facility] PRN Reason: Protocol Last Admin: 10/31/17 12:24 Dose: 5 unit Insulin Glargine (Lantus Solostar) 20 unit SUBQ 2100 [facility] Ondansetron HCl (Zofran Inj) 4 mg IVP Q6HR PRN PRN Reason: Nausea / Vomiting Polyethylene Glycol (Miralax) 17 gm PO DAILY [facility] Last Admin: 10/31/17 08:36 Dose: 17 gm Sodium Chloride (Normal Saline Flush 0.9%) 10 ml IVP PRN PRN PRN Reason: NEEDED PER PROVIDER ORDERS Sodium Chloride (Normal Saline Flush 0.9%) 10 ml IVP 0100,0900,1700 HIEN Last Admin: 10/31/17 08:38 Dose: Not Given Insulin Glargine,Hum.rec.anlog [Lantus] 20 units SUBQ 2100 02/22/13 Lisinopril [Prinivil] 20 mg PO DAILY 02/22/13 Atorvastatin [Lipitor] 10 mg PO QPM 10/23/14 amLODIPine [Norvasc] 10 mg PO DAILY 10/23/14 Clopidogrel [Plavix] 75 mg PO DAILY 01/02/16 cloNIDine [Catapres] 0.2 mg PO BID 10/30/17 hydroCHLOROthiazide [Hydrochlorothiazide] 12.5 mg PO DAILY 10/30/17 Aspirin [Aspirin EC] 81 mg PO DAILY 10/31/17 Insulin Aspart [NovoLOG] 12 unit SUBQ TIDWM 10/31/17 Objective - Vital Signs/Intake & Output Reviewed Vital Signs: Yes Intake & Output: Intake & Output 10/28/17 10/29/17 10/30/17 10/31/17 23:59 23:59 23:59 23:59 Intake Total 1640 Output Total 175 875 Balance -175 765 - Objective General Appearance: positive: No acute distress, Alert. negative: Lethargic Eyes Bilateral: positive: Normal inspection, PERRL, No lid inflammation, Conjunctivae nml ENT: positive: ENT inspection nml, Pharynx nml, No signs of dehydration. negative: Purulent nasal drainage, Pharyngeal erythema, Oral lesions, Dry mucous membranes Neck: positive: Nml inspection, Thyroid nml, No JVD, Trachea midline. negative : Thyromegaly, Lymphadenopathy (R), Lymphadenopathy (L), Stiff neck, Carotid bruit, Swelling/bruising, Tracheal deviation Respiratory: positive: Chest non-tender, No respiratory distress, Breath sounds nml. negative: Wheezes, Rales, Rhonchi Cardiovascular: positive: Regular rate & rhythm, No murmur, No gallop. negative : Irregularly irregular, Extrasystoles, Tachycardia, Bradycardia, JVD present, Systolic murmur, Diastolic murmur Peripheral Pulses: 2+ Radial (R), 2+ Radial (L), 2+ Dorsalis pedis (R), 2+ Dorsalis pedis (L) Abdomen: positive: Non-tender, No organomegaly, Nml bowel sounds, No distention. negative: Tenderness, Guarding, Rebound Back: positive: Nml inspection. negative: CVA tenderness (R), CVA tenderness (L ) Skin: positive: Color nml, No rash, Warm, Dry. negative: Cyanosis, Diaphoresis , Pallor Extremities: positive: Non-tender. negative: Calf tenderness, Joint swelling, Austin's sign/cords Neurologic/Psychiatric: positive: Sensation nml, Weakness. negative: Sensory loss, Facial droop, Slurred/abnml speech, Depressed mood/affect - Lab Results Fish Bones: 10/31/17 04:55 10/31/17 04:55 Other Labs: Lab Results x24hrs 10/31/17 10/31/17 10/31/17 Range/Units 11:43 07:47 04:55 WBC (4.8-10.8) x10^3/uL RBC (4.20-5.40) 10^6/uL Hgb (12.0-16.0) g/dL Hct (37.0-47.0) % MCV (81.0-99.0) fL MCH (27.0-31.0) pg MCHC (32.0-36.0) g/dL RDW (12.0-15.0) % Plt Count (130-450) 10^3/uL MPV (7.9-10.8) fL Neut # (1.5-6.6) 10^3/uL Lymph # (1.5-3.5) 10^3/uL [place] # (0.0-1.0) 10^3/uL Eos # (0.0-0.7) 10^3/uL Baso # (0.0-0.1) 10^3/uL Absolute Nucleated RBC x10^3/uL Nucleated RBC % /100WBC Sodium (135-145) mmol/L Potassium (3.5-5.0) mmol/L Chloride (101-111) mmol/L Carbon Dioxide (21-32) mmol/L Anion Gap (6-13) BUN (6-20) mg/dL Creatinine (0.4-1.0) mg/dL Estimated GFR (MDRD) (>89) Glucose (70-100) mg/dL POC Whole Bld Glucose 227 H 187 H (70 - 100) mg/dL Calcium (8.5-10.3) mg/dL Magnesium (1.7-2.8) mg/dL Total Bilirubin (0.2-1.0) mg/dL AST (10-42) IU/L ALT (10-60) IU/L Alkaline Phosphatase (42-121) IU/L Total Protein (6.7-8.2) g/dL Albumin (3.2-5.5) g/dL Globulin (2.1-4.2) g/dL Albumin/Globulin Ratio (1.0-2.2) Triglycerides 82 ( - 149) mg/dL Cholesterol 137 ( - 199) mg/dL LDL Cholesterol, Calc 71 ( - 129) mg/dL VLDL Cholesterol 16 mg/dL HDL Cholesterol 50 L (60 - ) mg/dL LDL/HDL Ratio 1.4 (<4.4) Cholesterol/HDL Ratio 2.7 (<4.4) 10/31/17 10/31/17 10/30/17 Range/Units 04:55 04:55 21:32 WBC 8.4 (4.8-10.8) x10^3/uL RBC 3.62 L (4.20-5.40) 10^6/uL Hgb 10.8 L (12.0-16.0) g/dL Hct 32.3 L (37.0-47.0) % MCV 89.3 (81.0-99.0) fL MCH 29.8 (27.0-31.0) pg MCHC 33.4 (32.0-36.0) g/dL RDW 12.9 (12.0-15.0) % Plt Count 225 (130-450) 10^3/uL MPV 9.7 (7.9-10.8) fL Neut # 4.2 (1.5-6.6) 10^3/uL Lymph # 3.3 (1.5-3.5) 10^3/uL [place] # 0.6 (0.0-1.0) 10^3/uL Eos # 0.3 (0.0-0.7) 10^3/uL Baso # 0.0 (0.0-0.1) 10^3/uL Absolute Nucleated RBC 0.00 x10^3/uL Nucleated RBC % 0.0 /100WBC Sodium 140 (135-145) mmol/L Potassium 3.7 (3.5-5.0) mmol/L Chloride 107 (101-111) mmol/L Carbon Dioxide 25 (21-32) mmol/L Anion Gap 8.0 (6-13) BUN 28 H (6-20) mg/dL Creatinine 1.3 H (0.4-1.0) mg/dL Estimated GFR (MDRD) 41 L (>89) Glucose 186 H (70-100) mg/dL POC Whole Bld Glucose 321 H (70 - 100) mg/dL Calcium 9.1 (8.5-10.3) mg/dL Magnesium 1.9 (1.7-2.8) mg/dL Total Bilirubin 0.7 (0.2-1.0) mg/dL AST 16 (10-42) IU/L ALT 12 (10-60) IU/L Alkaline Phosphatase 61 (42-121) IU/L Total Protein 6.4 L (6.7-8.2) g/dL Albumin 3.5 (3.2-5.5) g/dL Globulin 2.9 (2.1-4.2) g/dL Albumin/Globulin Ratio 1.2 (1.0-2.2) Triglycerides ( - 149) mg/dL Cholesterol ( - 199) mg/dL LDL Cholesterol, Calc ( - 129) mg/dL VLDL Cholesterol mg/dL HDL Cholesterol (60 - ) mg/dL LDL/HDL Ratio (<4.4) Cholesterol/HDL Ratio (<4.4) 10/30/17 Range/Units 18:50 WBC (4.8-10.8) x10^3/uL RBC (4.20-5.40) 10^6/uL Hgb (12.0-16.0) g/dL Hct (37.0-47.0) % MCV (81.0-99.0) fL MCH (27.0-31.0) pg MCHC (32.0-36.0) g/dL RDW (12.0-15.0) % Plt Count (130-450) 10^3/uL MPV (7.9-10.8) fL Neut # (1.5-6.6) 10^3/uL Lymph # (1.5-3.5) 10^3/uL [place] # (0.0-1.0) 10^3/uL Eos # (0.0-0.7) 10^3/uL Baso # (0.0-0.1) 10^3/uL Absolute Nucleated RBC x10^3/uL Nucleated RBC % /100WBC Sodium (135-145) mmol/L Potassium (3.5-5.0) mmol/L Chloride (101-111) mmol/L Carbon Dioxide (21-32) mmol/L Anion Gap (6-13) BUN (6-20) mg/dL Creatinine (0.4-1.0) mg/dL Estimated GFR (MDRD) (>89) Glucose (70-100) mg/dL POC Whole Bld Glucose 294 H (70 - 100) mg/dL Calcium (8.5-10.3) mg/dL Magnesium (1.7-2.8) mg/dL Total Bilirubin (0.2-1.0) mg/dL AST (10-42) IU/L ALT (10-60) IU/L Alkaline Phosphatase (42-121) IU/L Total Protein (6.7-8.2) g/dL Albumin (3.2-5.5) g/dL Globulin (2.1-4.2) g/dL Albumin/Globulin Ratio (1.0-2.2) Triglycerides ( - 149) mg/dL Cholesterol ( - 199) mg/dL LDL Cholesterol, Calc ( - 129) mg/dL VLDL Cholesterol mg/dL HDL Cholesterol (60 - ) mg/dL LDL/HDL Ratio (<4.4) Cholesterol/HDL Ratio (<4.4) Assessment/Plan - Problem List (1) Stroke Impression: (1) Stroke Conclusion/Plan: ECHO study reveals unremarkable MRI brain is pending continue PT/OT continue meds treatment slight give IVF at 75 cc/h to remain high BP for facility of stroke recovery. left side weakness including upper and lower extremities, persisting pt had CT of head, CTA of brain and neck. order MRI and ECHO, follow up ASA, resume home meds Plavix Lipitor from 10 mg, home meds, to 20 mg tele and vital monitor hold BP meds, add PRN BP order PT/OT pt had clinic swallow test, pt passed. start on Carb-control diet (2) T2DM (type 2 diabetes mellitus) Conclusion/Plan: will adjust slide scale as needed for better controlled glucose uncontrolled DM2, A1C 10.7 resume Lantus start slide scale, ACHS tightly control her blood glucose daily lab, vital monitor hypoglycemia protocol (3) HTN (hypertension) Conclusion/Plan: will hold BP, remain BP high for facility of stroke recovery. vital monitor , order PRN BP meds (4) Osteoarthritis Conclusion/Plan: stable, resume home meds (5) UTI treat with Rocephin follow up UA and culture sensitivity (6) chronic renal insufficiency stable, keep hydration with mild IVF
[2017-10-31] MEDS: cloNIDine 0.1 MG TABLET PO PRN (16:02)
[2017-10-31] MEDS: INSULIN GLARGINE 300 UNIT/3 ML PEN SUBQ SCH (21:52)
[2017-11-01] MEDS: SODIUM CHLORIDE FLUSH 0.9% 10 ML SYRINGE IVP SCH ×4 (03:19→23:41)
[2017-11-01 05:26] LABS: BASOPHILS % (AUTO) 0.5 %; EOSINOPHILS # (AUTO) 0.3 10^3/uL (0.0-0.7); EOSINOPHILS % (AUTO) 3.7 %; HGB - HEMOGLOBIN 10.5 g/dL (12.0-16.0); LYMPHOCYTES # (AUTO) 2.3 10^3/uL (1.5-3.5); LYMPHOCYTES % (AUTO) 31.5 %; MEAN CORPUSCULAR HEMOGLOBIN 29.7 pg (27.0-31.0); MEAN CORPUSCULAR HGB CONC 33.1 g/dL (32.0-36.0); MEAN CORPUSCULAR VOLUME 89.6 fL (81.0-99.0); MEAN PLATELET VOLUME 9.4 fL (7.9-10.8); MONOCYTES # (AUTO) 0.5 10^3/uL (0.0-1.0); MONOCYTES % (AUTO) 6.9 %; NEUTROPHILS # (AUTO) 4.3 10^3/uL (1.5-6.6); NEUTROPHILS % (AUTO) 57.4 %; PLT - PLATELET COUNT 215 10^3/uL (130-450); RED BLOOD COUNT 3.54 10^6/uL (4.20-5.40); WHITE BLOOD COUNT 7.4 x10^3/uL (4.8-10.8)
[2017-11-01 05:40] LABS: ALBUMIN 3.3 g/dL (3.2-5.5); ALBUMIN/GLOBULIN RATIO 1.1 (1.0-2.2); BILIRUBIN,TOTAL 0.5 mg/dL (0.2-1.0); CALCIUM 8.5 mg/dL (8.5-10.3); CREATININE 1.5 mg/dL (0.4-1.0); TOTAL PROTEIN 6.4 g/dL (6.7-8.2)
[2017-11-01] MEDS: INSULIN ASPART 300 UNIT/3 ML PEN SUBQ SCH ×4 (07:54→21:42)
[2017-11-01] MEDS: cloNIDine 0.1 MG TABLET PO PRN (08:18)
[2017-11-01] MEDS: ENOXAPARIN 40 MG/0.4 ML SYRINGE SUBQ SCH (08:30)
[2017-11-01] MEDS: ATORVASTATIN 10 MG TABLET PO SCH (08:30)
[2017-11-01] MEDS: ASPIRIN 325 MG TABLET PO SCH (08:30)
[2017-11-01] MEDS: FAMOTIDINE 20 MG TABLET PO SCH (08:30)
[2017-11-01] MEDS: CLOPIDOGREL 75 MG TABLET PO SCH (08:31)
[2017-11-01] MEDS: cefTRIAXone 1 GM in SODIUM CHLORIDE 0.9% MINIBAG 100 ML IV SCH (08:36)
--- NOTE | 2017-11-01 09:28 | PROVIDER PROGRESS NOTE ---
Subjective - Prog Note Date Prog Note Date: 11/01/17 - Subjective Pt reports feeling: No change Subjective: pt state she is doing good, no new complaints. Left side upper and lower extremities still present some weakness. Current Medications - Current Medications Current Medications: Active Medications Acetaminophen (Tylenol) 650 mg PO Q4HR PRN PRN Reason: Pain 1 to 4 Last Admin: 10/30/17 19:38 Dose: 650 mg Aspirin (Scott) 325 mg PO DAILY [facility] Last Admin: 11/01/17 08:30 Dose: 325 mg Atorvastatin Calcium (Lipitor) 20 mg PO DAILY [facility] Last Admin: 11/01/17 08:30 Dose: 20 mg Clonidine HCl (Catapres) 0.1 mg PO BID PRN PRN Reason: Hypertensive Emergency Last Admin: 11/01/17 08:18 Dose: 0.1 mg Clopidogrel Bisulfate (Plavix) 75 mg PO DAILY [facility] Last Admin: 11/01/17 08:31 Dose: 75 mg Enoxaparin Sodium (Lovenox) 40 mg SUBQ DAILY [facility] Last Admin: 11/01/17 08:30 Dose: 40 mg Famotidine (Pepcid) 20 mg PO DAILY [facility] Last Admin: 11/01/17 08:30 Dose: 20 mg Sodium Chloride (Normal Saline 0.9%) 1,000 mls @ 75 mls/hr IV .[id number] [facility] Last Infusion: 11/01/17 06:42 Dose: 75 mls/hr Ceftriaxone Sodium 1 gm/ (Sodium Chloride) 100 mls @ 200 mls/hr IV DAILY [facility] Last Admin: 11/01/17 08:36 Dose: 200 mls/hr Insulin Aspart (Novolog) 2 - 10 unit SUBQ 0800,1200,1700,2100 [facility] PRN Reason: Protocol Last Admin: 11/01/17 07:54 Dose: 2 unit Insulin Glargine (Lantus Solostar) 20 unit SUBQ 2100 [facility] Last Admin: 10/31/17 21:52 Dose: 20 unit Ondansetron HCl (Zofran Inj) 4 mg IVP Q6HR PRN PRN Reason: Nausea / Vomiting Polyethylene Glycol (Miralax) 17 gm PO DAILY [facility] Last Admin: 10/31/17 08:36 Dose: 17 gm Sodium Chloride (Normal Saline Flush 0.9%) 10 ml IVP PRN PRN PRN Reason: NEEDED PER PROVIDER ORDERS Sodium Chloride (Normal Saline Flush 0.9%) 10 ml IVP 0100,0900,1700 HIEN Last Admin: 11/01/17 08:37 Dose: Not Given Insulin Glargine,Hum.rec.anlog [Lantus] 20 units SUBQ 2100 02/22/13 Lisinopril [Prinivil] 20 mg PO DAILY 02/22/13 Atorvastatin [Lipitor] 10 mg PO QPM 10/23/14 amLODIPine [Norvasc] 10 mg PO DAILY 10/23/14 Clopidogrel [Plavix] 75 mg PO DAILY 01/02/16 cloNIDine [Catapres] 0.2 mg PO BID 10/30/17 hydroCHLOROthiazide [Hydrochlorothiazide] 12.5 mg PO DAILY 10/30/17 Aspirin [Aspirin EC] 81 mg PO DAILY 10/31/17 Insulin Aspart [NovoLOG] 12 unit SUBQ TIDWM 10/31/17 Objective - Vital Signs/Intake & Output Reviewed Vital Signs: Yes Vital Signs: Vital Signs x48h Temp Pulse Resp BP Pulse Ox 11/01/17 07:50 36.5 C 58 L 17 191/71 H 98 Intake & Output: Intake & Output 10/29/17 10/30/17 10/31/17 11/01/17 23:59 23:59 23:59 23:59 Intake Total 3220 1211.25 Output Total 175 875 Balance -175 2345 1211.25 - Objective General Appearance: positive: No acute distress, Alert. negative: Lethargic Eyes Bilateral: positive: Normal inspection, PERRL, No lid inflammation, Conjunctivae nml ENT: positive: ENT inspection nml, Pharynx nml, No signs of dehydration. negative: Purulent nasal drainage, Pharyngeal erythema, Oral lesions Neck: positive: Nml inspection, Thyroid nml, No JVD, Trachea midline. negative : Thyromegaly, Lymphadenopathy (R), Lymphadenopathy (L), Stiff neck, Carotid bruit, Swelling/bruising, Tracheal deviation Respiratory: positive: Chest non-tender, No respiratory distress, Breath sounds nml. negative: Wheezes, Rales, Rhonchi Cardiovascular: positive: Regular rate & rhythm, No murmur, No gallop. negative : Irregularly irregular, Extrasystoles, Tachycardia, Bradycardia, JVD present, Systolic murmur, Diastolic murmur Peripheral Pulses: 2+ Radial (R), 2+ Radial (L), 2+ Dorsalis pedis (R), 2+ Dorsalis pedis (L) Abdomen: positive: Non-tender, No organomegaly, Nml bowel sounds, No distention. negative: Tenderness, Guarding, Rebound Back: positive: Nml inspection. negative: CVA tenderness (R), CVA tenderness (L ) Skin: positive: Color nml, No rash, Warm, Dry. negative: Cyanosis, Diaphoresis , Pallor Extremities: positive: Non-tender, Nml appearance. negative: Calf tenderness, Joint swelling, Austin's sign/cords Neurologic/Psychiatric: positive: Oriented x3, Weakness. negative: Facial droop , Slurred/abnml speech, Depressed mood/affect - Lab Results Fish Bones: 11/01/17 04:56 11/01/17 04:56 Other Labs: Lab Results x24hrs 11/01/17 11/01/17 11/01/17 Range/Units 07:38 04:56 04:56 WBC 7.4 (4.8-10.8) x10^3/uL RBC 3.54 L (4.20-5.40) 10^6/uL Hgb 10.5 L (12.0-16.0) g/dL Hct 31.7 L (37.0-47.0) % MCV 89.6 (81.0-99.0) fL MCH 29.7 (27.0-31.0) pg MCHC 33.1 (32.0-36.0) g/dL RDW 13.0 (12.0-15.0) % Plt Count 215 (130-450) 10^3/uL MPV 9.4 (7.9-10.8) fL Neut # 4.3 (1.5-6.6) 10^3/uL Lymph # 2.3 (1.5-3.5) 10^3/uL Eagle # 0.5 (0.0-1.0) 10^3/uL Eos # 0.3 (0.0-0.7) 10^3/uL Baso # 0.0 (0.0-0.1) 10^3/uL Absolute Nucleated RBC 0.00 x10^3/uL Nucleated RBC % 0.1 /100WBC Sodium 141 (135-145) mmol/L Potassium 4.0 (3.5-5.0) mmol/L Chloride 110 (101-111) mmol/L Carbon Dioxide 25 (21-32) mmol/L Anion Gap 6.0 (6-13) BUN 27 H (6-20) mg/dL Creatinine 1.5 H (0.4-1.0) mg/dL Estimated GFR (MDRD) 34 L (>89) Glucose 171 H (70-100) mg/dL POC Whole Bld Glucose 152 H (70 - 100) mg/dL Calcium 8.5 (8.5-10.3) mg/dL Total Bilirubin 0.5 (0.2-1.0) mg/dL AST 19 (10-42) IU/L ALT 12 (10-60) IU/L Alkaline Phosphatase 61 (42-121) IU/L Total Protein 6.4 L (6.7-8.2) g/dL Albumin 3.3 (3.2-5.5) g/dL Globulin 3.1 (2.1-4.2) g/dL Albumin/Globulin Ratio 1.1 (1.0-2.2) 10/31/17 10/31/17 10/31/17 Range/Units 20:31 16:28 11:43 WBC (4.8-10.8) x10^3/uL RBC (4.20-5.40) 10^6/uL Hgb (12.0-16.0) g/dL Hct (37.0-47.0) % MCV (81.0-99.0) fL MCH (27.0-31.0) pg MCHC (32.0-36.0) g/dL RDW (12.0-15.0) % Plt Count (130-450) 10^3/uL MPV (7.9-10.8) fL Neut # (1.5-6.6) 10^3/uL Lymph # (1.5-3.5) 10^3/uL Eagle # (0.0-1.0) 10^3/uL Eos # (0.0-0.7) 10^3/uL Baso # (0.0-0.1) 10^3/uL Absolute Nucleated RBC x10^3/uL Nucleated RBC % /100WBC Sodium (135-145) mmol/L Potassium (3.5-5.0) mmol/L Chloride (101-111) mmol/L Carbon Dioxide (21-32) mmol/L Anion Gap (6-13) BUN (6-20) mg/dL Creatinine (0.4-1.0) mg/dL Estimated GFR (MDRD) (>89) Glucose (70-100) mg/dL POC Whole Bld Glucose 112 H 148 H 227 H (70 - 100) mg/dL Calcium (8.5-10.3) mg/dL Total Bilirubin (0.2-1.0) mg/dL AST (10-42) IU/L ALT (10-60) IU/L Alkaline Phosphatase (42-121) IU/L Total Protein (6.7-8.2) g/dL Albumin (3.2-5.5) g/dL Globulin (2.1-4.2) g/dL Albumin/Globulin Ratio (1.0-2.2) Assessment/Plan - Problem List (1) Stroke Impression: (1) Stroke Conclusion/Plan: MRI is pending continue ASA and plavix continue PT/OT plan d/c to SNF on tomorrow, per PT/OT recommends ECHO study reveals unremarkable MRI brain is pending continue PT/OT continue meds treatment slight give IVF at 75 cc/h to remain high BP for facility of stroke recovery. left side weakness including upper and lower extremities, persisting pt had CT of head, CTA of brain and neck. order MRI and ECHO, follow up ASA, resume home meds Plavix Lipitor from 10 mg, home meds, to 20 mg tele and vital monitor hold BP meds, add PRN BP order PT/OT pt had clinic swallow test, pt passed. start on Carb-control diet (2) T2DM (type 2 diabetes mellitus) Conclusion/Plan: glucose is well controlled, continue slide scale and insulin plan will adjust slide scale as needed for better controlled glucose uncontrolled DM2, A1C 10.7 resume Lantus start slide scale, ACHS tightly control her blood glucose daily lab, vital monitor hypoglycemia protocol (3) HTN (hypertension) Conclusion/Plan: continue vital monitor, PRN BP meds as needed will hold BP, remain BP high for facility of stroke recovery. vital monitor , order PRN BP meds (4) Osteoarthritis Conclusion/Plan: stable, resume home meds (5) UTI treat with Rocephin follow up UA and culture sensitivity (6) chronic renal insufficiency stable, continue treatment stable, keep hydration with mild IVF
[2017-11-01] MEDS: POLYETHYLENE GLYCOL 3350 17 GM PACKET PO SCH (10:51)
[2017-11-01] MEDS: SODIUM CHLORIDE 0.9% 1,000 ML IV SCH (11:24)
[2017-11-01] MEDS: hydroCHLOROthiazide 12.5 MG CAPSULE PO SCH (14:37)
[2017-11-01] MEDS: amLODIPine 5 MG TABLET PO SCH (14:38)
--- NOTE | 2017-11-01 18:53 | MRI Report ---
EXAM: MRI BRAIN WITHOUT CONTRAST EXAM DATE: 11/01/2017 05:57 PM. CLINICAL HISTORY: 67-year-old woman with stroke. COMPARISON: CTA of the head and neck on 10/30/2017 and MRI on 01/03/2016. TECHNIQUE: Multiplanar, multisequence T1-weighted and fluid-sensitive MR sequences of the brain were performed. Sequences optimized for routine evaluation. Other: None. IV Contrast: None. FINDINGS: Parenchyma: Focus of restricted diffusion with prominent corresponding FLAIR hyperintensity is presen t in the ventral right farrah, consistent with acute infarct. This lesion measures approximately 14 x 1 1 mm in maximum axial dimensions. No evidence of corresponding hemorrhage. Small region of encephalomalacia is present in the posterior left frontal operculum, consistent with remote infarct and corresponding to acute infarct seen on the 01/03/2016 MRI. There is also mild braulio en of nonspecific FLAIR hyperintensities in the periventricular and deep cerebral white matter, simil ar to the 2016 exam and a common finding in this age group. Susceptibility weighted sequence demonstr ates a remote micro-hemorrhage in the right frontal operculum, unchanged from the 2016 exam. Pituitary: Unremarkable. Ventricles and Extra-axial Spaces: Ventricles are symmetric and normal in size for age. Extra-axial s paces are unremarkable. Orbits: Unremarkable. Sinuses: Paranasal sinuses and mastoid air cells are clear. Major Vascular Flow Voids: Intact. IMPRESSION: 1. Acute infarct (1-7 days) in the ventral right farrah. No corresponding hemorrhage. 2. Encephalomalacia in the posterior left frontal operculum, consistent with remote infarct and corre sponding to acute infarct seen on the 01/03/2016 MRI. [facility] The above findings were discussed with DEWAYNE Persaud by Dr. Niko Tuttle at 18:51 hrs on 11/01/17. Referring Provider Line: [phone] SITE ID: [id number]
[2017-11-01] MEDS: INSULIN GLARGINE 300 UNIT/3 ML PEN SUBQ SCH (21:40)
[2017-11-02 05:10] LABS: BASOPHILS % (AUTO) 0.5 %; EOSINOPHILS # (AUTO) 0.2 10^3/uL (0.0-0.7); EOSINOPHILS % (AUTO) 2.8 %; HGB - HEMOGLOBIN 10.4 g/dL (12.0-16.0); LYMPHOCYTES # (AUTO) 1.9 10^3/uL (1.5-3.5); LYMPHOCYTES % (AUTO) 21.4 %; MEAN CORPUSCULAR HGB CONC 33.9 g/dL (32.0-36.0); MEAN CORPUSCULAR VOLUME 88.5 fL (81.0-99.0); MEAN PLATELET VOLUME 9.5 fL (7.9-10.8); MONOCYTES # (AUTO) 0.5 10^3/uL (0.0-1.0); MONOCYTES % (AUTO) 6.1 %; NEUTROPHILS # (AUTO) 6.2 10^3/uL (1.5-6.6); NEUTROPHILS % (AUTO) 69.2 %; PLT - PLATELET COUNT 203 10^3/uL (130-450); RED BLOOD COUNT 3.48 10^6/uL (4.20-5.40); RED CELL DISTRIBUTION WIDTH 12.6 % (12.0-15.0); WHITE BLOOD COUNT 8.9 x10^3/uL (4.8-10.8)
[2017-11-02 05:21] LABS: ALBUMIN 3.2 g/dL (3.2-5.5); ALBUMIN/GLOBULIN RATIO 1.1 (1.0-2.2); BILIRUBIN,TOTAL 0.4 mg/dL (0.2-1.0); CALCIUM 8.6 mg/dL (8.5-10.3); CREATININE 1.4 mg/dL (0.4-1.0); TOTAL PROTEIN 6.1 g/dL (6.7-8.2)
[2017-11-02] MEDS: CLOPIDOGREL 75 MG TABLET PO SCH (09:12)
[2017-11-02] MEDS: INSULIN ASPART 300 UNIT/3 ML PEN SUBQ SCH ×2 (09:12→12:08)
[2017-11-02] MEDS: ASPIRIN 325 MG TABLET PO SCH (09:12)
[2017-11-02] MEDS: ENOXAPARIN 40 MG/0.4 ML SYRINGE SUBQ SCH (09:12)
[2017-11-02] MEDS: hydroCHLOROthiazide 12.5 MG CAPSULE PO SCH (09:13)
[2017-11-02] MEDS: amLODIPine 5 MG TABLET PO SCH (09:13)
[2017-11-02] MEDS: cefTRIAXone 1 GM in SODIUM CHLORIDE 0.9% MINIBAG 100 ML IV SCH (09:13)
[2017-11-02] MEDS: ATORVASTATIN 10 MG TABLET PO SCH (09:13)
[2017-11-02] MEDS: FAMOTIDINE 20 MG TABLET PO SCH (09:13)
[2017-11-02] MEDS: POLYETHYLENE GLYCOL 3350 17 GM PACKET PO SCH (09:14)
[2017-11-02] MEDS: SODIUM CHLORIDE FLUSH 0.9% 10 ML SYRINGE IVP SCH (09:14)
--- NOTE | 2017-11-02 10:54 | Discharge Plan ---
"Discharge Plan for SNF / [facility] - DC Plan and Transition Orders Disposition: 03 SNF DC/Xfer Condition: Good SNF Transition Orders: Admit to: [facility] under the care of Dr. Doss (Makennael Odonnell is her [employer] CONTROL OPERATOR) Discharge Diagnosis: stroke, acute history of previous stroke HTN Type 2 DM, controlled with complications, on intermediate accountant use of insulin CKD Stage III UTI with Staph hemolyticus, sensitive to all except tetracycline or PCN Medicare Certification: I certify that [facility] Hospital shelter care is medically necessary on a continuing basis for any of the conditions for which she/he is receiving care during hospitalization. Notify PCP of admission and forward orders to primary provider for signature. Weight on admission and weekly. Call PCP immediately if weight increases by 5 pounds or if patient develops dyspnea, chest pain/tightness or edema. House Bowel Program: yes If no BM after 2 days, nurse may give M.O.M. 30ml PO PRN and /or ducolax Supp 1 WI and /or GERA 250mg P.O., and/or senna 1-2 tabs PO. On day 3 nurse may give repeat above order until residents constipation is resolved. Immunizations: Annual Influenza Vaccine: yes. (between Apr 02 and October 30.) Unless allergy or already given Two-Step PPD: yes per [facility] [id number] or appropriate documentation of approved exceptions Treatments & Other Orders: Oxygen Orders: keep O2 sats >92% prn with NC O2 Lab Tests or X-Rays Orders: Orthopedic Orders: none. Medications: PLEASE REFER TO THE DISCHARGE MEDICATION LIST. Insulin Orders? yes Diagnosis: Diabetes Initiate hypo and hyperglycemia protocols for BG <70 and BG >375. May check BG prn for signs/symptoms of dysglycemia. Frequency of BG checks: [AC/Meal/HS] Basal Insulin: Lantus 100 units / ml inject subq as follows: 20 units SQ at 2100 [] Other: [] Correction Insulin: - Novolog 4 units SQ ac tid plus sliding scale as below Select the type of insulin below Choose: Novolog 100 units /ml insulin inject subq per orders indicate below [X] LOW DOSE [] MODERATE DOSE [] MODERATE/HIGH DOSE [] HIGH DOSE GB UNITS GB UNITS GB UNITS GB UNITS 61-140 0 UNITS 61-140 0 UNITS 61-140 0 UNITS 61-140 0 UNITS 141-175 1 UNITS 141-175 1 UNITS 141-175 2 UNITS 141-175 3 UNITS 176-225 2 UNITS 176-225 3 UNITS 176-225 4 UNITS 176-225 5 UNITS 226-275 3 UNITS 226-275 5 UNITS 226-275 6 UNITS 226-275 7 UNITS 276-325 4 UNITS 276-325 7 UNITS 276-325 8 UNITS 276-325 9 UNITS 326-375 5 UNITS 326-375 9 UNITS 326-375 10 UNITS 326-375 11 UNITS >375 CONTACT MD >375 CONTACT MD >375 CONTACT MD >375 CONTACT MD Custom Dosing: [Choose: None/Novolog/Humalog] 100 units/ml Insulin inject subq as follows: GB Units 61-140 [] Units 141-175 [] Units 176-225 [] Units 226-275 [] Units 276-325 []Units 326-375 [] Units >375 Contact MD Allergies and Adverse Reactions: Allergies Allergy/AdvReac Type Severity Reaction Status Date / Time No Known Drug Allergies Allergy Verified 10/30/17 04:29 - Medications New Prescriptions: Nitrofurantoin [Macrobid] 100 mg PO BID #12 capsule - Diet Type: No added sugar Texture: Regular Liquids: Thin May have monthly special meal: Yes - Therapies | Activity Therapy: Evaluation | Treat if indicated: PT, OT Rehabilitation Potential: Maximize functional status, Return to independent living Activity: Activity as Tolerated Follow Up: Please see your primary care provider when you leave [facility]."
[2017-11-02] MEDS ORDERED: DOCUSATE SODIUM 250 MG CAPSULE PO SCH (15:00)
[2017-11-02 15:23] VITALS: BP 183/72
--- NOTE | 2017-11-22 00:02 | DISCHARGE SUMMARY ---
Physician: Cele Velez MD DATE OF ADMISSION: 10/30/2017 DATE OF DISCHARGE: 11/02/2017 DISCHARGE DIAGNOSES 1. 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 2. Type 2 diabetes mellitus, uncontrolled, with complications, on long-term use of insulin. 3. Essential hypertension. 4. Osteoarthritis. 5. Chronic kidney disease, stage III. 6. Urinary tract infection with Staphylococcus haemolyticus. DISCHARGE MEDICATIONS 1. Nitrofurantoin 100 mg p.o. b.i.d. 2. Tylenol 650 p.o. q. 4 hours p.r.n. pain, fever, headache. 3. Norvasc 10 mg daily. 4. Aspirin 81 mg daily. 5. Lipitor 10 mg daily. 6. Clonidine 0.2 mg p.o. b.i.d. 7. Plavix 75 p.o. daily. 8. Hydrochlorothiazide 12.5 daily. 9. NovoLog 12 units subcutaneous t.i.d. 10. Lantus 20 units subcutaneously at bedtime. 11. Lisinopril 20 mg daily. PRINCIPAL PROCEDURES 1. Head CT with loss of mcmanus-white matter differentiation in the region of the sylvian fissure that was low in attenuation and acute on chronic stroke could not be excluded. This is on the left side. 2. Head and neck CT angiogram with 30% to 40% tapering stenosis of the distal right M1 segment. A 70% stenosis of the proximal right A2 segment. A 30% to 40% stenosis at the proximal left A1 segment. A 70% stenosis of the left A2 segment. A 40% to 50% stenosis of the right vertebral artery. A 70% to 80% stenosis mid distal basilar artery focal stenosis. Greater than 80% stenosis of the left P2 segment with distal flow present. Left internal carotid artery without stenosis or aneurysms. Right internal carotid artery without stenosis or aneurysms, but the right internal carotid artery is tortuous. 3. Brain MRI with acute infarct of 1-7 days in the ventral right farrah, no corresponding hemorrhage. There is encephalomalacia in the posterior left frontal operculum, consistent with remote infarct and corresponding to the acute infarct seen 01/03/2016. 4. Echocardiogram with left ventricular size, normal, ejection fraction 60% to 65%. Right ventricle normal in size. No hemodynamically significant valvular heart disease. 5. Urine culture showing Staph haemolyticus resistant to penicillin and tetracycline. HOSPITAL COURSE: The patient is a 67-year-old female who has a past medical history significant for stroke, TIA, diabetes, hypertension, and osteoarthritis, who presents with left-sided body weakness. Prior to this complaint, she had already been seen in the emergency room in the pick pulling machine tender hours complaining of generalized weakness. The patient was speaking normally, walking normally, and evaluation did not show anything causing the generalized weakness and she will return to home. After being discharged to home, she then started having the left body weakness of both the upper and lower extremities with a fall. She was dysarthric. She denied chest pain, fever, chills, shortness of breath, headache. No visual changes. CT of the head showed the old stroke, and CT angiogram showed multiple areas of stenosis on both sides of her brain, but no large thrombus. No hemorrhage. She was not a candidate for TPA with an NIHSS scale of 7. It was felt that her onset of stroke symptoms were outside the therapeutic window and uncertain as to the specific onset. The patient was admitted to the hospital with a stroke. Her symptoms improved slightly, but still remained present with PT and OT evaluations. Swallow evaluation was done and negative. Physical therapy confirmed the left-sided body weakness and need for continued rehabilitation. MRI was done and as above. Angiograms showed multiple levels of stenosis in the distal arteries, but nothing in the internal carotids that were accessible. She was treated with Plavix, aspirin, and a statin. She was felt to be a candidate for rehabilitation and as such transferred to [facility]. During her stay, type 2 diabetes mellitus was noted in her history and during her stay. A1c indicated that she was out of control in the last 120 days. She did have complications of chronic kidney disease and peripheral neuropathy. During her stay, she was on Lantus and sliding scale insulin. When she first was admitted, glucose was up to 321 on that first day. She then dropped down into the mid 100s to low 100s. Glucose on the day of discharge had rebounded back up to 215 and 205. [facility] 12 units fixed dosing plus sliding scale before meals and the continued Lantus 20 at night. Creatinine remained stable for her. Varied between 1.3 to 1.5. On discharge, she was 1.4. Her chronic kidney disease was felt to be stable and not acutely worsened. She was allowed permissive hypertension during her stay. Blood pressure was 183/55 on admission, was as high as 195/82 on 11/01/2017. On the day of discharge, she was 183/72. Over the next week, medication could be altered and added to her to bring her blood pressure to 140/90 or less. Urinalysis did reveal abnormal urinary constituents. She ended up growing out Staph haemolyticus. She was treated with Rocephin IV and transitioned to nitrofurantoin orally to complete therapy in the [facility]. The patient was transferred to the care of Dr. Doss at [facility]. Makenna Odonnell is her NURSES ASSISTANT. I did speak to Dr. Doss about her insulin management on the day of discharge. Greater than 30 minutes was spent in coordinating discharge. Physical examination on the day of discharge included a temperature of 37, pulse 74, blood pressure 183/72, respirations 18, 98% on room air. She was a pleasant, short-statured, moderately overweight female who looks her stated age. Mildly dysarthric, mild left facial droop. Needed to stand by assist to be able to transfer from a lying to a sitting position and then to a standing position to go to the bathroom. The left body weakness was evident with shuffling gait. She used a walker. Neck was supple without carotid bruit. Lungs were clear to auscultation without crackles, rhonchi or wheezing. PMI was normally placed with a regular rate and rhythm and a soft systolic ejection murmur. The feet had no edema. cc: Makenna Odonnell PA-C TD: 11/22/2017 00:01
== END 2017-11-02 15:55 | DRG 65 ==
LOC: ED 14:06 → MS3 17:58 → MS2 10-31 14:04
PROVIDERS: ADMIT Nurse Practitioner Gerontology; ATTEND Specialist
DX: I63.9 Cerebral infarction, unspecified (principal); I63.511 Cerebral infarction due to unspecified occlusion or stenosis of right middle cerebral artery; G81.94 Hemiplegia, unspecified affecting left nondominant side; N39.0 Urinary tract infection, site not specified; B95.7 Other staphylococcus as the cause of diseases classified elsewhere; E11.9 Type 2 diabetes mellitus without complications; R13.10 Dysphagia, unspecified; R47.1 Dysarthria and anarthria; R29.810 Facial weakness; R29.707 NIHSS score 7; Z86.73 Personal history of transient ischemic attack (TIA), and cerebral infarction without residual deficits; I10 Essential (primary) hypertension; E11.42 Type 2 diabetes mellitus with diabetic polyneuropathy; E11.22 Type 2 diabetes mellitus with diabetic chronic kidney disease; E11.65 Type 2 diabetes mellitus with hyperglycemia; N18.3 Chronic kidney disease, stage 3 (moderate); M19.90 Unspecified osteoarthritis, unspecified site; Z16.11 Resistance to penicillins; Z16.29 Resistance to other single specified antibiotic; Z79.4 Long term (current) use of insulin; Z79.82 Long term (current) use of aspirin; Z79.02 Long term (current) use of antithrombotics/antiplatelets; Z91.81 History of falling
CPT/HCPCS: 36415; 70450; 70496; 70498; 70551; 71046; 80053; 80061; 81001; 81003; 83036; 83690; 83721; 83735; 84484; 85025; 87077; 87086; 93005; 93306; 96360; 99283; 99284; 99285

== ENCOUNTER 2017-12-15 14:15 | Outpatient (CLI) | payer MEDICARE, MEDICAID ==
[2017-12-15 19:37] LABS: CALCIUM 9.3 mg/dL (8.5-10.3); CREATININE 1.8 mg/dL (0.4-1.0)
[2017-12-15 20:07] LABS: HB2 TOTAL 12.1 g/dL; HEMOGLOBIN A1C 0.96 g/dL; HEMOGLOBIN A1C % 9.4 % (4.6-6.2)
== END 2017-12-15 14:16 ==
LOC: LAB.N 14:15
PROVIDERS: ATTEND Family Medicine
DX: E11.65 Type 2 diabetes mellitus with hyperglycemia (principal)
CPT/HCPCS: 36415; 80048; 83036

== ENCOUNTER 2018-06-17 10:21 | Outpatient (CLI) | payer MEDICARE, MEDICAID ==
--- NOTE | 2018-06-17 14:03 | XRAY Report ---
Reason: BACK PAIN Procedure Date: 06/17/2018 Accession Number: [id number] / [id number] Procedure: XRN - Thoracic Spine 2 View CPT Code: FULL RESULT: EXAM: THORACIC SPINE RADIOGRAPHY EXAM DATE: 06/17/2018 10:50 AM. CLINICAL HISTORY: Back pain. COMPARISON: Chest 2 views 10/30/2017 6:13 AM. TECHNIQUE: 2 views. FINDINGS: Alignment: Normal. No spondylolisthesis or scoliosis. Bones: Apparent irregularity of a upper thoracic vertebral body, possibly T4 seen on the lateral radiograph only, is felt to most likely represent summation of shadows. If there is high suspicion for vertebral body injury around the T4 level, consider CT thoracic spine. Disks: Normal. Disk heights are maintained. Soft Tissues: Normal. The visualized lungs and cardiomediastinal silhouette are normal. IMPRESSION: Questionable one-view of finding of the upper thoracic spine, felt to most likely be summation of shadows. If the physical examination is concerning for this area, recommend CT thoracic spine. [facility]
--- NOTE | 2018-06-17 14:07 | XRAY Report ---
Reason: BACK PAIN Procedure Date: 06/17/2018 Accession Number: [id number] / [id number] Procedure: XRN - Lumbar Spine Complete CPT Code: FULL RESULT: EXAM: LUMBOSACRAL SPINE RADIOGRAPHY EXAM DATE: 06/17/2018 10:59 AM. CLINICAL HISTORY: Back pain. COMPARISONS: None. TECHNIQUE: 3 views. FINDINGS: Alignment: Normal. No spondylolisthesis or scoliosis. Bones: Five [id number] lumbar vertebral bodies are present. No fractures or bone lesions. Disks: Disk space heights are generally maintained with minimal marginal osteophytosis and preserved alignment. Facets: No degenerative changes. Sacroiliac Joints: Unremarkable. Soft Tissues: Normal. The visualized bowel gas pattern is normal. IMPRESSION: Minimal degenerative changes. [facility]
== END 2018-06-17 10:22 | disposition home or self-care (01) ==
LOC: DI.N 10:21
PROVIDERS: ATTEND Nurse Practitioner
DX: M51.37 Other intervertebral disc degeneration, lumbosacral region (principal)
CPT/HCPCS: 72070; 72110

== ENCOUNTER 2018-08-08 08:00 | Outpatient (CLI) | payer MEDICARE, MEDICAID ==
[2018-08-08 14:26] LABS: HB2 TOTAL 12.2 g/dL; HEMOGLOBIN A1C 0.86 g/dL; HEMOGLOBIN A1C % 8.6 % (4.6-6.2)
[2018-08-08 14:27] LABS: ALBUMIN 4.3 g/dL (3.2-5.5); ALBUMIN/GLOBULIN RATIO 1.4 (1.0-2.2); ALKALINE PHOSPHATASE 74 IU/L (42-121); ALT ALANINE AMINOTRANSFERASE 16 IU/L (10-60); AST ASPARTATE AMINOTRANSFERASE 18 IU/L (10-42); BILIRUBIN,TOTAL 0.6 mg/dL (0.2-1.0); BUN - BLOOD UREA NITROGEN 38 mg/dL (6-20); CALCIUM 9.6 mg/dL (8.5-10.3); CARBON DIOXIDE - CO2 25 mmol/L (21-32); CHLORIDE 106 mmol/L (101-111); CHOLESTEROL 148 mg/dL; CREATININE 1.9 mg/dL (0.4-1.0); GFR - MDRD 26 (>89); GLUCOSE 190 mg/dL (70-100); HDL CHOLESTEROL 50 mg/dL; LDL CHOLESTEROL,CALCULATED 77 mg/dL; LDL/HDL RATIO 1.5 (<4.4); SODIUM 140 mmol/L (135-145); TOTAL PROTEIN 7.4 g/dL (6.7-8.2); VLDL CHOLESTEROL 21 mg/dL
== END 2018-08-08 23:59 ==
LOC: LAB.N 08:00
PROVIDERS: ATTEND Nurse Practitioner
DX: E11.65 Type 2 diabetes mellitus with hyperglycemia (principal)
CPT/HCPCS: 36415; 80053; 80061; 82043; 83036; 83721; 84443

== ENCOUNTER 2018-10-10 14:12 | Emergency (ER) | payer MEDICARE, MEDICAID ==
[2018-10-10 14:21] VITALS: BP 152/62
[2018-10-10] MEDS ORDERED: traMADol 50 MG TABLET PO STA (16:07)
--- NOTE | 2018-10-10 16:09 | ED Physician Documentation ---
History of Present Illness - Stated complaint Stated Complaint: L SHOULDER PAIN - Chief complaint Chief Complaint: Ext Problem - History obtained from History obtained from: Patient - History of Present Illness Timing: Other (1 year ago) Pain level max: 5 Pain level now: 4 Improved by: Rest Worsened by: Movement - Additonal information Additional information: 68-year-old female presents to the emergency department with left shoulder pain for the past year or so. Hurts more with moving the arm and lifting the arm. Also has intermittent pain and numbness to the left leg. This is also been ongoing for the past year. No headaches. No recent injuries. Has not taken anything for the pain. Has not seen her doctor for this. Ambulating without difficulty. Review of Systems Constitutional: denies: Fever, Chills Respiratory: denies: Cough GI: denies: Vomiting Skin: denies: Rash Musculoskeletal: denies: Neck pain, Back pain Neurologic: denies: Headache PD PAST MEDICAL HISTORY - Past Medical History Cardiovascular: Hypertension Respiratory: None Endocrine/Autoimmune: Type 2 diabetes GI: None : None HEENT: Chronic vision loss Psych: None Musculoskeletal: Osteoarthritis Derm: None - Past Surgical History Past Surgical History: No HEENT: Cataracts - Present Medications Home Medications: Ambulatory Orders Medication Instructions Recorded Confirmed Insulin Glargine,Hum.rec.anlog 20 units SUBQ 2100 02/22/13 10/31/17 [Lantus] hydroCHLOROthiazide 12.5 mg PO DAILY 10/30/17 10/31/17 [Hydrochlorothiazide] Acetaminophen [Tylenol] 650 mg PO Q4HR PRN #0 tablet 11/02/17 Aspirin [Aspirin EC] 81 mg PO DAILY #0 11/02/17 10/31/17 Atorvastatin [Lipitor] 10 mg PO QPM #0 11/02/17 10/31/17 Clopidogrel [Plavix] 75 mg PO DAILY #0 11/02/17 10/31/17 Insulin Aspart [NovoLOG] 12 unit SUBQ TIDWM #0 11/02/17 10/31/17 Lisinopril [Prinivil] 20 mg PO DAILY #0 11/02/17 10/31/17 Nitrofurantoin [Macrobid] 100 mg PO BID #12 capsule 11/02/17 amLODIPine [Norvasc] 10 mg PO DAILY #0 11/02/17 10/31/17 cloNIDine [Catapres] 0.2 mg PO BID #0 11/02/17 10/31/17 traMADol [Ultram] 50 - 100 mg PO Q6H PRN #14 tablet 10/10/18 - Allergies Allergies/Adverse Reactions: Allergies Allergy/AdvReac Type Severity Reaction Status Date / Time No Known Drug Allergies Allergy Verified 10/10/18 14:21 - Social History Does the pt smoke?: No Smoking Status: Never smoker Does the pt drink ETOH?: No Does the pt have substance abuse?: No - Immunizations Immunizations are current?: No - POLST Patient has POLST: No POLST Status: Full Code PD ED PE NORMAL - Vitals Vital signs reviewed: Yes - General General: Alert and oriented X 3, No acute distress - HEENT HEENT: PERRL - Neck Neck: Supple, no meningeal sign, No bony TTP - Cardiac Cardiac: RRR, Strong equal pulses - Respiratory Respiratory: No respiratory distress, Clear bilaterally - Abdomen Abdomen: Soft, Non tender, Non distended - Back Back: No CVA TTP, No spinal TTP - Derm Derm: Warm and dry - Extremities Extremities: No deformity, No tenderness to palpate, Other (Left shoulder - No bony tenderness about the glenohumeral joint. Neurovascular intact including the axillary nerve. Full range of motion present.) - Neuro Neuro: Alert and oriented X 3, No motor deficit, No sensory deficit - Psych Psych: Normal mood, Normal affect Results - Vitals Vitals: Vital Signs - 24 hr 10/10/18 14:18 Temperature 36.3 C L Heart Rate 73 Respiratory 16 Rate Blood Pressure 152/62 H O2 Saturation 98 Oxygen O2 Source [With Activity] Room air O2 Source Room air PD MEDICAL DECISION MAKING - ED course Complexity details: considered differential, d/w patient, d/w family ED course: 68-year-old female with what appears to be musculoskeletal pain of the left shoulder, likely arthritis in the joint. Neurovascularly intact. No recent trauma. No indication for x-ray urgently. No significant numbness or tingling focally. Patient counseled regarding signs and symptoms for which I believe and urgent re-evaluation would be necessary. Patient with good understanding of and agreement to plan and is comfortable going home at this time This document was made in part using voice recognition software. While efforts are made to proofread this document, sound alike and grammatical errors may occur. Departure - Departure Disposition: 01 Home, Self Care Clinical Impression: Shoulder pain, left Qualifiers: Chronicity: acute Qualified Code(s): M25.512 - Pain in left shoulder Condition: Good Instructions: ED Shoulder Pain [facility] Follow-Up: Jocelynn Bhatt DNP [Primary Care Provider] - Within 1 week Prescriptions: traMADol [Ultram] 50 - 100 mg PO Q6H PRN #14 tablet PRN Reason: shoulder pain Comments: Follow-up with your doctor for repeat evaluation. Return if you worsen. You may have a rotator cuff injury in your shoulder. You may benefit from physical therapy as well. This referral will need to come from your doctor
== END 2018-10-10 16:50 | disposition home or self-care (01) ==
LOC: ED 14:12
DX: M25.512 Pain in left shoulder (principal); I10 Essential (primary) hypertension; E11.9 Type 2 diabetes mellitus without complications; Z79.4 Long term (current) use of insulin
CPT/HCPCS: 99283; A9270

== ENCOUNTER 2018-10-11 12:21 | Outpatient (CLI) | payer MEDICARE, MEDICAID | END 2018-10-11 12:22 | disposition critical access hospital (66) | LOC: EMS 12:21 | PROVIDERS: ATTEND Surgery | DX: R11.2 Nausea with vomiting, unspecified (principal); R10.11 Right upper quadrant pain; R10.12 Left upper quadrant pain | CPT/HCPCS: A0425; A0427 ==

== ENCOUNTER 2018-10-11 12:42 | Emergency (ER) | payer MEDICARE, MEDICAID ==
[2018-10-11] MEDS ORDERED: ONDANSETRON ODT 4 MG TABLET TL STA (13:07)
[2018-10-11] MEDS ORDERED: PROMETHAZINE INJ 25 MG in SODIUM CHLORIDE 0.9% 50 ML IV STA (13:50)
[2018-10-11 14:01] LABS: BASOPHILS % (AUTO) 0.3 %; EOSINOPHILS % (AUTO) 0.3 %; HGB - HEMOGLOBIN 10.3 g/dL (12.0-16.0); LYMPHOCYTES # (AUTO) 1.2 10^3/uL (1.5-3.5); LYMPHOCYTES % (AUTO) 10.5 %; MEAN CORPUSCULAR HEMOGLOBIN 30.3 pg (27.0-31.0); MEAN CORPUSCULAR VOLUME 89.2 fL (81.0-99.0); MEAN PLATELET VOLUME 8.3 fL (7.9-10.8); MONOCYTES # (AUTO) 0.2 10^3/uL (0.0-1.0); MONOCYTES % (AUTO) 2.1 %; NEUTROPHILS # (AUTO) 10.2 10^3/uL (1.5-6.6); NEUTROPHILS % (AUTO) 86.8 %; PLT - PLATELET COUNT 277 10^3/uL (130-450); RED BLOOD COUNT 3.39 10^6/uL (4.20-5.40); RED CELL DISTRIBUTION WIDTH 13.4 % (12.0-15.0); WHITE BLOOD COUNT 11.8 x10^3/uL (4.8-10.8)
[2018-10-11 14:20] LABS: ALBUMIN 3.8 g/dL (3.2-5.5); ALBUMIN/GLOBULIN RATIO 1.3 (1.0-2.2); CALCIUM 8.7 mg/dL (8.5-10.3); CREATININE 1.4 mg/dL (0.4-1.0); TOTAL PROTEIN 6.7 g/dL (6.7-8.2)
--- NOTE | 2018-10-11 15:33 | ED Physician Documentation ---
PD HPI ABD PAIN - Stated complaint Stated Complaint: ABD PX - Chief complaint Chief Complaint: Abd Pain - History obtained from History obtained from: Patient, Family - History of Present Illness Timing - onset: Today Timing - duration: Days (1) Timing - details: Gradual onset Pain level max: 6 Pain level now: 5 Quality: Cramping, Aching, Pain Location: Epigastric Radiation: Other (Nonradiating) Improved by: Vomiting Worsened by: Eating, Other (Taking tramadol) Associated symptoms: Nausea. No: Fever, Vomiting, Hematemesis, Diarrhea, Constipation, Melena, Hematochezia, Dysuria, Hematuria Recently seen: Emergency Dept (Yesterday for shoulder pain, prescribed tramadol. Took the tramadol and began vomiting) Review of Systems Ten Systems: 10 systems reviewed and negative Constitutional: denies: Fever, Chills Nose: denies: Rhinorrhea / runny nose, Congestion Respiratory: denies: Cough GI: reports: Abdominal Pain (Cramping, epigastric), Nausea, Vomiting. denies: Diarrhea : denies: Dysuria Skin: denies: Rash PD PAST MEDICAL HISTORY - Past Medical History Cardiovascular: Hypertension Respiratory: None Endocrine/Autoimmune: Type 2 diabetes GI: None : None HEENT: Chronic vision loss Psych: None Musculoskeletal: Osteoarthritis Derm: None - Past Surgical History Past Surgical History: No HEENT: Cataracts - Present Medications Home Medications: Ambulatory Orders Medication Instructions Recorded Confirmed Insulin Glargine,Hum.rec.anlog 20 units SUBQ 2100 02/22/13 10/31/17 [Lantus] hydroCHLOROthiazide 12.5 mg PO DAILY 10/30/17 10/31/17 [Hydrochlorothiazide] Acetaminophen [Tylenol] 650 mg PO Q4HR PRN #0 tablet 11/02/17 Aspirin [Aspirin EC] 81 mg PO DAILY #0 11/02/17 10/31/17 Atorvastatin [Lipitor] 10 mg PO QPM #0 11/02/17 10/31/17 Clopidogrel [Plavix] 75 mg PO DAILY #0 11/02/17 10/31/17 Insulin Aspart [NovoLOG] 12 unit SUBQ TIDWM #0 11/02/17 10/31/17 Lisinopril [Prinivil] 20 mg PO DAILY #0 11/02/17 10/31/17 Nitrofurantoin [Macrobid] 100 mg PO BID #12 capsule 11/02/17 amLODIPine [Norvasc] 10 mg PO DAILY #0 11/02/17 10/31/17 cloNIDine [Catapres] 0.2 mg PO BID #0 11/02/17 10/31/17 traMADol [Ultram] 50 - 100 mg PO Q6H PRN #14 tablet 10/10/18 Promethazine [Phenergan] 25 mg PO Q6H PRN #10 tab 10/11/18 - Allergies Allergies/Adverse Reactions: Allergies Allergy/AdvReac Type Severity Reaction Status Date / Time No Known Drug Allergies Allergy Verified 10/11/18 12:58 - Social History Does the pt smoke?: No Smoking Status: Never smoker Does the pt drink ETOH?: No Does the pt have substance abuse?: No - Immunizations Immunizations are current?: No - POLST Patient has POLST: No POLST Status: Full Code PD ED PE NORMAL - Vitals Vital signs reviewed: Yes - General General: Alert and oriented X 3, No acute distress, Well developed/nourished - HEENT HEENT: PERRL, Moist mucous membranes - Neck Neck: Supple, no meningeal sign - Cardiac Cardiac: RRR - Respiratory Respiratory: No respiratory distress, Clear bilaterally - Abdomen Abdomen: Normal bowel sounds, Soft, Non tender, Non distended - Back Back: No CVA TTP, No spinal TTP - Derm Derm: Warm and dry - Neuro Neuro: Alert and oriented X 3 - Psych Psych: Normal mood, Normal affect Results - Vitals Vitals: Vital Signs - 24 hr 10/11/18 10/11/18 10/11/18 12:56 13:17 15:13 Temperature 36.8 C Heart Rate 85 87 Respiratory 18 18 18 Rate Blood Pressure 168/74 H 158/75 H O2 Saturation 99 99 Oxygen O2 Source [With Activity] Room air O2 Source Room air - Labs Labs: Laboratory Tests 10/11/18 10/11/18 13:55 13:55 WBC 11.8 H RBC 3.39 L Hgb 10.3 L Hct 30.2 L MCV 89.2 MCH 30.3 MCHC 34.0 RDW 13.4 Plt Count 277 MPV 8.3 Neut # (Auto) 10.2 H Lymph # (Auto) 1.2 L [place] # (Auto) 0.2 Eos # (Auto) 0.0 Baso # (Auto) 0.0 Absolute Nucleated RBC 0.00 Nucleated RBC % 0.0 Sodium 140 Potassium 3.8 Chloride 105 Carbon Dioxide 23 Anion Gap 12.0 BUN 31 H Creatinine 1.4 H Estimated GFR (MDRD) 37 L Glucose 272 H Calcium 8.7 Total Bilirubin 1.0 AST 23 ALT 15 Alkaline Phosphatase 61 Total Protein 6.7 Albumin 3.8 Globulin 2.9 Albumin/Globulin Ratio 1.3 Lipase 25 PD MEDICAL DECISION MAKING - ED course Complexity details: reviewed results, re-evaluated patient, considered differential, d/w patient ED course: Patient feels much better after Phenergan. Zofran did not seem to have much effect. Tolerating p.o. without difficulty. No acute laboratory abnormalities. Likely an adverse reaction to the tramadol. Patient counseled regarding signs and symptoms for which I believe and urgent re-evaluation would be necessary. Patient with good understanding of and agreement to plan and is comfortable going home at this time This document was made in part using voice recognition software. While efforts are made to proofread this document, sound alike and grammatical errors may occur. Departure - Departure Disposition: 01 Home, Self Care Clinical Impression: Vomiting Qualifiers: Vomiting type: unspecified Vomiting Intractability: non-intractable Nausea presence: without nausea Qualified Code(s): R11.11 - Vomiting without nausea Abdominal pain Qualifiers: Abdominal location: epigastric Qualified Code(s): R10.13 - Epigastric pain Condition: Good Instructions: ED Nausea Vomiting Follow-Up: Jocelynn Bhatt DNP [Primary Care Provider] - Within 1 week Prescriptions: Promethazine [Phenergan] 25 mg PO Q6H PRN #10 tab PRN Reason: Nausea / Vomiting Comments: Stop the tramadol as this appears to be making her stomach upset. Return if you worsen. Do not drive or operate heavy machinery while taking the Phenergan.
[2018-10-11 16:54] VITALS: BP 153/66
== END 2018-10-11 19:08 | disposition home or self-care (01) ==
LOC: EDUNIT# → ED 12:42
DX: R11.10 Vomiting, unspecified (principal); R10.13 Epigastric pain; I10 Essential (primary) hypertension; E11.9 Type 2 diabetes mellitus without complications; Z79.4 Long term (current) use of insulin; Z79.02 Long term (current) use of antithrombotics/antiplatelets; Z79.82 Long term (current) use of aspirin
CPT/HCPCS: 36415; 80053; 83690; 85025; 96365; 99283; J7040; Q0162

== ENCOUNTER 2018-11-07 08:00 | Outpatient (CLI) | payer MEDICARE, MEDICAID ==
[2018-11-07 19:38] LABS: HB2 TOTAL 11.8 g/dL; HEMOGLOBIN A1C 0.85 g/dL; HEMOGLOBIN A1C % 8.7 % (4.6-6.2)
[2018-11-07 19:41] LABS: CALCIUM 9.1 mg/dL (8.5-10.3); CREATININE 1.6 mg/dL (0.4-1.0)
== END 2018-11-07 23:59 | disposition home or self-care (01) ==
LOC: LAB.N 08:00
PROVIDERS: ATTEND Physician Assistant Medical
DX: E11.22 Type 2 diabetes mellitus with diabetic chronic kidney disease (principal); N18.3 Chronic kidney disease, stage 3 (moderate)
CPT/HCPCS: 36415; 80048; 83036

== ENCOUNTER 2019-05-09 10:02 | Outpatient (CLI) | payer MEDICARE, MEDICAID ==
[2019-05-09 12:43] LABS: CALCIUM 9.4 mg/dL (8.5-10.3); CREATININE 2.1 mg/dL (0.4-1.0)
[2019-05-09 13:03] LABS: HEMOGLOBIN A1C 0.63 g/dL; HEMOGLOBIN A1C % 7.9 % (4.6-6.2)
== END 2019-05-09 23:59 | disposition home or self-care (01) ==
LOC: LAB.N 10:02
PROVIDERS: ATTEND Physician Assistant Medical
DX: E11.22 Type 2 diabetes mellitus with diabetic chronic kidney disease (principal); I12.9 Hypertensive chronic kidney disease with stage 1 through stage 4 chronic kidney disease, or unspecified chronic kidney disease; N18.9 Chronic kidney disease, unspecified
CPT/HCPCS: 36415; 80048; 83036

== ENCOUNTER 2019-08-24 08:00 | Outpatient (CLI) | payer MEDICARE, MEDICAID ==
[2019-08-24 13:51] LABS: BASOPHILS % (AUTO) 0.7 %; EOSINOPHILS # (AUTO) 0.1 10^3/uL (0.0-0.7); EOSINOPHILS % (AUTO) 2.1 %; HGB - HEMOGLOBIN 11.5 g/dL (12.0-16.0); LYMPHOCYTES # (AUTO) 1.9 10^3/uL (1.5-3.5); LYMPHOCYTES % (AUTO) 30.4 %; MEAN CORPUSCULAR HEMOGLOBIN 30.2 pg (27.0-31.0); MEAN CORPUSCULAR VOLUME 91.6 fL (81.0-99.0); MEAN PLATELET VOLUME 11.4 fL (7.9-10.8); MONOCYTES # (AUTO) 0.4 10^3/uL (0.0-1.0); MONOCYTES % (AUTO) 6.7 %; NEUTROPHILS # (AUTO) 3.7 10^3/uL (1.5-6.6); NEUTROPHILS % (AUTO) 59.9 %; PLT - PLATELET COUNT 337 10^3/uL (130-450); RED BLOOD COUNT 3.81 10^6/uL (4.20-5.40); RED CELL DISTRIBUTION WIDTH 13.2 % (12.0-15.0); WHITE BLOOD COUNT 6.1 x10^3/uL (4.8-10.8)
[2019-08-24 13:56] LABS: MICROALBUM/CREATININE RATIO,UR 1788.4 ug/mg (<30.0); MICROALBUMIN,URINE 277.2 mg/dL (0-300.0)
[2019-08-24 18:46] LABS: CALCIUM 9.6 mg/dL (8.5-10.3); CREATININE 3.6 mg/dL (0.4-1.0)
== END 2019-08-24 23:59 | disposition home or self-care (01) ==
LOC: LAB.N 08:00
PROVIDERS: ATTEND Physician Assistant Medical
DX: E11.22 Type 2 diabetes mellitus with diabetic chronic kidney disease (principal); N18.9 Chronic kidney disease, unspecified
CPT/HCPCS: 36415; 80048; 82043; 82570; 85025

== ENCOUNTER 2019-08-29 08:00 | Outpatient (CLI) | payer MEDICARE, MEDICAID ==
[2019-08-29 12:38] LABS: CALCIUM 9.3 mg/dL (8.5-10.3); CREATININE 2.3 mg/dL (0.4-1.0)
== END 2019-08-29 23:59 | disposition home or self-care (01) ==
LOC: LAB.N 08:00
PROVIDERS: ATTEND Physician Assistant Medical
DX: N19 Unspecified kidney failure (principal)
CPT/HCPCS: 36415; 80048

== ENCOUNTER 2020-02-01 11:21 | Outpatient (CLI) | payer MEDICARE, MEDICAID ==
[2020-02-01 18:32] LABS: BASOPHILS % (AUTO) 0.5 %; EOSINOPHILS # (AUTO) 0.2 10^3/uL (0.0-0.7); EOSINOPHILS % (AUTO) 3.4 %; HGB - HEMOGLOBIN 10.3 g/dL (12.0-16.0); LYMPHOCYTES # (AUTO) 1.7 10^3/uL (1.5-3.5); LYMPHOCYTES % (AUTO) 26.5 %; MEAN CORPUSCULAR HEMOGLOBIN 28.6 pg (27.0-31.0); MEAN CORPUSCULAR HGB CONC 32.1 g/dL (32.0-36.0); MEAN CORPUSCULAR VOLUME 89.2 fL (81.0-99.0); MEAN PLATELET VOLUME 10.7 fL (7.9-10.8); MONOCYTES # (AUTO) 0.4 10^3/uL (0.0-1.0); MONOCYTES % (AUTO) 5.7 %; NEUTROPHILS # (AUTO) 4.2 10^3/uL (1.5-6.6); NEUTROPHILS % (AUTO) 63.7 %; PLT - PLATELET COUNT 314 10^3/uL (130-450); WHITE BLOOD COUNT 6.5 x10^3/uL (4.8-10.8)
[2020-02-01 18:36] LABS: CALCIUM 8.8 mg/dL (8.5-10.3)
[2020-02-01 18:52] LABS: HEMOGLOBIN A1C 0.64 g/dL; HEMOGLOBIN A1C % 7.5 % (4.6-6.2)
[2020-02-01 18:56] LABS: ALBUMIN 3.7 g/dL (3.2-5.5); ALBUMIN/GLOBULIN RATIO 1.3 (1.0-2.2); BILIRUBIN,TOTAL 0.8 mg/dL (0.2-1.0); CREATININE 2.6 mg/dL (0.4-1.0); TOTAL PROTEIN 6.5 g/dL (6.7-8.2)
== END 2020-02-01 23:59 | disposition home or self-care (01) ==
LOC: LAB.WCP 11:21
PROVIDERS: ATTEND Nurse Practitioner Family
DX: E11.9 Type 2 diabetes mellitus without complications (principal)
CPT/HCPCS: 36415; 80053; 82043; 83036; 85025

== ENCOUNTER 2020-09-10 13:52 | Emergency (ER) | payer MEDICARE, MEDICAID ==
--- NOTE | 2020-09-10 14:22 | ED Physician Documentation ---
History of Present Illness - Stated complaint Stated Complaint: L LEG SWELLING - Chief complaint Chief Complaint: Ext Problem - History obtained from History obtained from: Patient, Friend - History of Present Illness Pain level max: 3 Pain level now: 2 - Additonal information Additional information: Patient is a 69-year-old female who presents to the emergency department complaining of abdominal swelling for the past 3 weeks, states no bowel movement for 4 days. No vomiting or diarrhea. She also states her legs have been swollen for the past 3 weeks. She states she has not been walking as much. Denies any history of congestive heart failure. States she did have a stroke in 2018. She is taking all of her medications as prescribed. Has not seen her doctor or contacted her doctor for these issues. No fever. No chills. No blood in the stool. No dyspnea on exertion. No chest pain. Nothing makes it better or worse. Review of Systems Ten Systems: 10 systems reviewed and negative Constitutional: denies: Fever, Chills Ears: denies: Ear pain Nose: denies: Rhinorrhea / runny nose, Congestion Respiratory: denies: Cough GI: reports: Abdominal Swelling, Constipation. denies: Abdominal Pain, Nausea, Vomiting, Diarrhea, Hematemesis, Bloody / black stool : denies: Dysuria, Frequency, Hesitancy Skin: denies: Rash Musculoskeletal: denies: Neck pain, Back pain Neurologic: denies: Headache PD PAST MEDICAL HISTORY - Past Medical History Cardiovascular: Hypertension Respiratory: None Endocrine/Autoimmune: Type 2 diabetes GI: None : None HEENT: Chronic vision loss Psych: None Musculoskeletal: Osteoarthritis Derm: None - Past Surgical History Past Surgical History: No HEENT: Cataracts - Present Medications Home Medications: Ambulatory Orders Medication Instructions Recorded Confirmed Insulin Glargine,Hum.rec.anlog 20 units SUBQ 2100 02/22/13 09/10/20 [Lantus] hydroCHLOROthiazide 12.5 mg PO DAILY 10/30/17 09/10/20 [Hydrochlorothiazide] Atorvastatin [Lipitor] 10 mg PO QPM #0 11/02/17 09/10/20 Clopidogrel [Plavix] 75 mg PO DAILY #0 11/02/17 09/10/20 Insulin Aspart [NovoLOG] 12 unit SUBQ TIDWM #0 11/02/17 09/10/20 Lisinopril [Prinivil] 20 mg PO DAILY #0 11/02/17 09/10/20 amLODIPine [Norvasc] 10 mg PO DAILY #0 11/02/17 09/10/20 - Allergies Allergies/Adverse Reactions: Allergies Allergy/AdvReac Type Severity Reaction Status Date / Time No Known Drug Allergies Allergy Verified 09/10/20 14:01 - Social History Does the pt smoke?: No Smoking Status: Never smoker Does the pt drink ETOH?: No Does the pt have substance abuse?: No - Immunizations Immunizations are current?: No - POLST Patient has POLST: No POLST Status: Full Code PD ED PE NORMAL - Vitals Vital signs reviewed: Yes - General General: Alert and oriented X 3, No acute distress, Well developed/nourished - HEENT HEENT: PERRL, Moist mucous membranes - Neck Neck: Supple, no meningeal sign - Cardiac Cardiac: RRR, Strong equal pulses - Respiratory Respiratory: No respiratory distress, Clear bilaterally - Abdomen Abdomen: Soft, Non tender, Non distended, Other (anasarca to mid abdomen) - Derm Derm: Warm and dry, No rash - Extremities Extremities: Other (1+ bilateral lower extremity pitting edema) - Neuro Neuro: Alert and oriented X 3 - Psych Psych: Normal mood, Normal affect Results - Vitals Vitals: Vital Signs - 24 hr 09/10/20 09/10/20 09/10/20 14:01 15:55 16:01 Temperature 36.5 C Heart Rate 85 87 83 Respiratory 18 16 16 Rate Blood Pressure 174/81 H 193/89 H 175/86 H O2 Saturation 98 99 99 09/10/20 17:42 Temperature 36.3 C L Heart Rate 93 Respiratory 18 Rate Blood Pressure 186/78 H O2 Saturation 99 Oxygen O2 Source [With Activity] Room air O2 Source Room air - EKG (time done) 1708 Rate: Rate (enter#) (96) Rhythm: NSR [place]: Normal Intervals: Normal MI QRS: Normal Ischemia: Normal ST segments - Labs Labs: Laboratory Tests 09/10/20 09/10/20 09/10/20 14:25 14:25 14:25 WBC 8.5 RBC 2.97 L Hgb 8.7 L Hct 26.6 L MCV 89.6 MCH 29.3 MCHC 32.7 RDW 16.0 H Plt Count 307 MPV 8.8 Neut # (Auto) 5.3 Lymph # (Auto) 2.4 [place] # (Auto) 0.5 Eos # (Auto) 0.3 Baso # (Auto) 0.0 Absolute Nucleated RBC 0.00 Nucleated RBC % 0.0 Sodium 143 Potassium 5.5 H Chloride 111 Carbon Dioxide 20 L Anion Gap 12.0 BUN 54 H Creatinine 6.2 H Estimated GFR (MDRD) 7 L Glucose 117 H Calcium 8.9 Total Bilirubin 0.4 AST 21 ALT 19 Alkaline Phosphatase 64 B-Natriuretic Peptide 135 H Total Protein 6.6 L Albumin 3.6 Globulin 3.0 Albumin/Globulin Ratio 1.2 Lipase 27 Urine Color Urine Clarity Urine pH Ur Specific [place] Urine Protein Urine Glucose (UA) Urine Ketones Urine Occult Blood Urine Nitrite Urine Bilirubin Urine Urobilinogen Ur Leukocyte Esterase Urine RBC Urine WBC Ur Epithelial Cells Ur Squamous Epith Cells Urine Bacteria Nasal Adenovirus (PCR) Nasal B. parapertussis DNA (PCR) Nasal Coronavir 229E PCR Nasal Coronavir HKU1 PCR Nasal Coronavir NL63 PCR Nasal Coronavir OC43 PCR Nasal Enterovir/Rhinovir PCR Nasal Influenza B PCR Nasal Influenza A PCR Nasal Parainfluen 1 PCR Nasal Parainfluen 2 PCR Nasal Parainfluen 3 PCR Nasal Parainfluen 4 PCR Nasal RSV (PCR) Nasal B.pertussis DNA PCR Nasal C.pneumoniae (PCR) Lamin Human Metapneumo PCR Nasal M.pneumoniae (PCR) Nasal SARS-CoV-2 (PCR) 09/10/20 09/10/20 14:34 16:09 WBC RBC Hgb Hct MCV MCH MCHC RDW Plt Count MPV Neut # (Auto) Lymph # (Auto) [place] # (Auto) Eos # (Auto) Baso # (Auto) Absolute Nucleated RBC Nucleated RBC % Sodium Potassium Chloride Carbon Dioxide Anion Gap BUN Creatinine Estimated GFR (MDRD) Glucose Calcium Total Bilirubin AST ALT Alkaline Phosphatase B-Natriuretic Peptide Total Protein Albumin Globulin Albumin/Globulin Ratio Lipase Urine Color YELLOW Urine Clarity HAZY Urine pH 6.0 Ur Specific [place] 1.020 Urine Protein >=300 H Urine Glucose (UA) 250 H Urine Ketones NEGATIVE Urine Occult Blood MODERATE H Urine Nitrite NEGATIVE Urine Bilirubin NEGATIVE Urine Urobilinogen 0.2 (NORMAL) Ur Leukocyte Esterase NEGATIVE Urine RBC 6-10 H Urine WBC 4-5 Ur Epithelial Cells RARE Renal Tubular Ur Squamous Epith Cells FEW Squamous Urine Bacteria Rare Nasal Adenovirus (PCR) NOT DETECTED Nasal B. parapertussis DNA (PCR) NOT DETECTED Nasal Coronavir 229E PCR NOT DETECTED Nasal Coronavir HKU1 PCR NOT DETECTED Nasal Coronavir NL63 PCR NOT DETECTED Nasal Coronavir OC43 PCR NOT DETECTED Nasal Enterovir/Rhinovir PCR NOT DETECTED Nasal Influenza B PCR NOT DETECTED Nasal Influenza A PCR NOT DETECTED Nasal Parainfluen 1 PCR NOT DETECTED Nasal Parainfluen 2 PCR NOT DETECTED Nasal Parainfluen 3 PCR NOT DETECTED Nasal Parainfluen 4 PCR NOT DETECTED Nasal RSV (PCR) NOT DETECTED Nasal B.pertussis DNA PCR NOT DETECTED Nasal C.pneumoniae (PCR) NOT DETECTED [place]amin Human Metapneumo PCR NOT DETECTED Nasal M.pneumoniae (PCR) NOT DETECTED Nasal SARS-CoV-2 (PCR) NOT DETECTED PD MEDICAL DECISION MAKING - ED course Complexity details: reviewed results, re-evaluated patient, considered differential, d/w patient ED course: Patient is a 69-year-old female who presents to the emergency department with renal failure. Does have chronic kidney disease, but is currently in acute renal failure. Has anasarca as well. GFR less than 7. Will likely need dialysis. Discussed the case with Dr. Douglas, nephrology who has seen her in the past for her chronic kidney disease, recommends transfer to [facility] in [place]. Discussed the case with Dr. Celaya who graciously accepts in transfer. COBRA forms completed. This document was made in part using voice recognition software. While efforts are made to proofread this document, sound alike and grammatical errors may occur. EXAM: [id number] CT/ABPEWO ([id number]) PROCEDURE: Abdomen/Pelvis WO INDICATIONS: abdominal distention x 3 weeks TECHNIQUE: Noncontrast 5 mm thick sections acquired from the diaphragms to the symphysis. 5 mm coronal and sagittal reformats were then performed. For radiation dose reduction, the following was used: automated exposure control, adjustment of mA and/or kV according to patient size. COMPARISON: None. FINDINGS: Image quality: Excellent. ABDOMEN: Lung bases: Small right greater than left pleural effusions are present. Cardiomegaly is present. Small pericardial effusion is present.. Solid organs: Liver and spleen are normal in size. Gallbladder is contracted, and demonstrates a 14 mm calculus within its lumen Pancreas is normal in contours. No adrenal nodules. Kidneys are normal in size, without hydronephrosis or nephrolithiasis. Peritoneum and bowel: Unenhanced bowel loops demonstrate normal wall thickness and caliber. Appendix is not seen. No evidence of appendicitis. No free fluid or air. Nodes and vessels: No retroperitoneal or mesenteric adenopathy by size criteria. Aorta and inferior vena cava are normal in caliber. Miscellaneous: No ventral hernias. Moderate diffuse subcutaneous fat stranding. PELVIS: Genitourinary: Bladder wall thickness is normal. Miscellaneous: No inguinal hernias or adenopathy. Bones: No suspicious bony lesions. No vertebral body compression fractures. IMPRESSION: 1. Diffuse subcutaneous fat stranding, consistent with edema versus cellulitis. 2. Small pericardial effusion. 3. Right greater than left pleural effusions. 4. Cholelithiasis with no evidence of cholecystitis. 5. Cardiomegaly. Departure - Departure Disposition: 02 Transfer Acute Care Hosp Clinical Impression: Peripheral edema, Anasarca, Hyperkalemia, Pleural effusion Renal failure Qualifiers: Renal failure chronicity: acute on chronic Acute renal failure type: unspecified Chronic kidney disease stage: stage 5, not on chronic dialysis Qualified Code(s): N17.9 - Acute kidney failure, unspecified T2DM (type 2 diabetes mellitus) Qualifiers: Diabetes mellitus terminal operator insulin use: with [facility] use Diabetes mellitus complication status: with kidney complications Diabetes mellitus complication detail: with chronic kidney disease Chronic kidney disease stage: stage 5, not on chronic dialysis Qualified Code(s): E11.22 - Type 2 diabetes mellitus with diabetic chronic kidney disease HTN (hypertension) Qualifiers: Hypertension type: unspecified Qualified Code(s): I10 - Essential (primary) hypertension Condition: Stable
[2020-09-10 14:30] LABS: BASOPHILS % (AUTO) 0.4 %; EOSINOPHILS # (AUTO) 0.3 10^3/uL (0.0-0.7); EOSINOPHILS % (AUTO) 3.6 %; HGB - HEMOGLOBIN 8.7 g/dL (12.0-16.0); LYMPHOCYTES # (AUTO) 2.4 10^3/uL (1.5-3.5); LYMPHOCYTES % (AUTO) 28.1 %; MEAN CORPUSCULAR HEMOGLOBIN 29.3 pg (27.0-31.0); MEAN CORPUSCULAR HGB CONC 32.7 g/dL (32.0-36.0); MEAN CORPUSCULAR VOLUME 89.6 fL (81.0-99.0); MEAN PLATELET VOLUME 8.8 fL (7.9-10.8); MONOCYTES # (AUTO) 0.5 10^3/uL (0.0-1.0); MONOCYTES % (AUTO) 5.8 %; NEUTROPHILS # (AUTO) 5.3 10^3/uL (1.5-6.6); NEUTROPHILS % (AUTO) 61.7 %; PLT - PLATELET COUNT 307 10^3/uL (130-450); RED BLOOD COUNT 2.97 10^6/uL (4.20-5.40); WHITE BLOOD COUNT 8.5 x10^3/uL (4.8-10.8)
[2020-09-10 14:42] LABS: BILIRUBIN,URINE NEGATIVE (NEGATIVE); GLUCOSE, URINE (UA) 250 mg/dL (NEGATIVE); KETONES,URINE (UA) NEGATIVE (NEGATIVE); LEUKOCYTE ESTERASE, URINE NEGATIVE (NEGATIVE); NITRITE,URINE NEGATIVE (NEGATIVE); OCCULT BLOOD,URINE MODERATE (NEGATIVE); PROTEIN,URINE >=300 mg/dL (NEGATIVE); UROBILINOGEN,URINE 0.2 (NORMAL) E.U./dL (NORMAL)
[2020-09-10 14:44] LABS: CLARITY,URINE HAZY (CLEAR)
[2020-09-10 14:46] LABS: ALBUMIN 3.6 g/dL (3.2-5.5); ALBUMIN/GLOBULIN RATIO 1.2 (1.0-2.2); BILIRUBIN,TOTAL 0.4 mg/dL (0.2-1.0); CALCIUM 8.9 mg/dL (8.5-10.3); CREATININE 6.2 mg/dL (0.4-1.0); TOTAL PROTEIN 6.6 g/dL (6.7-8.2)
[2020-09-10] MEDS ORDERED: IOPAMIDOL-300 50 ML VIAL ONE (14:47)
[2020-09-10] MEDS ORDERED: IOVERSOL 320 100 ML VIAL IVP ONE (14:47)
[2020-09-10 14:58] LABS: BACTERIA,URINE Rare /HPF (None Seen); EPITHELIAL CELLS,UR RARE Renal Tubular /HPF (<= Few); SQUAMOUS EPITHELIAL CELL,UR FEW Squamous (<= Few)
--- NOTE | 2020-09-10 16:01 | CT Report ---
PROCEDURE: Abdomen/Pelvis WO INDICATIONS: abdominal distention x 3 weeks TECHNIQUE: Noncontrast 5 mm thick sections acquired from the diaphragms to the symphysis. 5 mm coronal and sagi ttal reformats were then performed. For radiation dose reduction, the following was used: automated exposure control, adjustment of mA and/or kV according to patient size. COMPARISON: None. FINDINGS: Image quality: Excellent. ABDOMEN: Lung bases: Small right greater than left pleural effusions are present. Cardiomegaly is present. Sma ll pericardial effusion is present.. Solid organs: Liver and spleen are normal in size. Gallbladder is contracted, and demonstrates a 14 mm calculus within its lumen Pancreas is normal in contours. No adrenal nodules. Kidneys are nor mal in size, without hydronephrosis or nephrolithiasis. Peritoneum and bowel: Unenhanced bowel loops demonstrate normal wall thickness and caliber. Appendi x is not seen. No evidence of appendicitis. No free fluid or air. Nodes and vessels: No retroperitoneal or mesenteric adenopathy by size criteria. Aorta and inferior vena cava are normal in caliber. Miscellaneous: No ventral hernias. Moderate diffuse subcutaneous fat stranding. PELVIS: Genitourinary: Bladder wall thickness is normal. Miscellaneous: No inguinal hernias or adenopathy. Bones: No suspicious bony lesions. No vertebral body compression fractures. IMPRESSION: 1. Diffuse subcutaneous fat stranding, consistent with edema versus cellulitis. 2. Small pericardial effusion. 3. Right greater than left pleural effusions. 4. Cholelithiasis with no evidence of cholecystitis. 5. Cardiomegaly. Reviewed by: Babak Tuttle MD on 09/10/2020 4:00 PM PST Approved by: Babak Tuttle MD on 09/10/2020 4:00 PM PST Station ID: [id number]
[2020-09-10] MEDS ORDERED: SODIUM CHLORIDE 0.9% 1,000 ML IV STA (16:09)
[2020-09-10 17:13] LABS: C. PNEUMONIAE- RESP PCR PANEL NOT DETECTED
[2020-09-10 17:42] VITALS: BP 186/78
== END 2020-09-10 17:52 | disposition short-term general hospital (02) ==
LOC: ED 13:52
DX: N17.9 Acute kidney failure, unspecified (principal); R60.1 Generalized edema; E87.5 Hyperkalemia; J90 Pleural effusion, not elsewhere classified; I12.0 Hypertensive chronic kidney disease with stage 5 chronic kidney disease or end stage renal disease; E11.22 Type 2 diabetes mellitus with diabetic chronic kidney disease; N18.5 Chronic kidney disease, stage 5; Z79.4 Long term (current) use of insulin; Z20.822 Contact with and (suspected) exposure to COVID-19; K80.20 Calculus of gallbladder without cholecystitis without obstruction; Z86.73 Personal history of transient ischemic attack (TIA), and cerebral infarction without residual deficits; Z79.02 Long term (current) use of antithrombotics/antiplatelets
CPT/HCPCS: 36415; 74176; 80053; 81001; 83690; 83880; 85025; 87631; 93005; 99285; Q9967; 0202U

== ENCOUNTER 2020-09-10 18:03 | Outpatient (CLI) | payer MEDICARE, MEDICAID | END 2020-09-10 18:04 | disposition short-term general hospital (02) | LOC: EMS 18:03 | DX: N19 Unspecified kidney failure (principal); E87.5 Hyperkalemia | CPT/HCPCS: A0425; A0426 ==

== ENCOUNTER 2020-11-15 08:44 | Outpatient (CLI) | payer MEDICARE, MEDICAID ==
[2020-11-15 12:16] LABS: BASOPHILS % (AUTO) 0.4 %; EOSINOPHILS # (AUTO) 0.2 10^3/uL (0.0-0.7); EOSINOPHILS % (AUTO) 2.7 %; HCT - HEMATOCRIT 30.6 % (37.0-47.0); HGB - HEMOGLOBIN 9.8 g/dL (12.0-16.0); LYMPHOCYTES % (AUTO) 24.4 %; MEAN CORPUSCULAR HEMOGLOBIN 30.2 pg (27.0-31.0); MEAN CORPUSCULAR VOLUME 94.4 fL (81.0-99.0); MEAN PLATELET VOLUME 9.9 fL (7.9-10.8); MONOCYTES # (AUTO) 0.8 10^3/uL (0.0-1.0); MONOCYTES % (AUTO) 9.6 %; NEUTROPHILS # (AUTO) 5.1 10^3/uL (1.5-6.6); NEUTROPHILS % (AUTO) 62.4 %; PLT - PLATELET COUNT 352 10^3/uL (130-450); RED BLOOD COUNT 3.24 10^6/uL (4.20-5.40); RED CELL DISTRIBUTION WIDTH 15.4 % (12.0-15.0); WHITE BLOOD COUNT 8.1 x10^3/uL (4.8-10.8)
[2020-11-15 12:18] LABS: ESTIMATED AVERAGE GLUCOSE 111 mg/dL (70-100); HEMOGLOBIN A1c% 5.5 % (4.27-6.07)
[2020-11-15 13:07] LABS: THYROID STIMULATING HORMONE 0.99 uIU/mL (0.34-5.60)
[2020-11-15 13:21] LABS: ALBUMIN/GLOBULIN RATIO 1.3 (1.0-2.2); ALKALINE PHOSPHATASE 90 IU/L (42-121); ALT ALANINE AMINOTRANSFERASE 21 IU/L (10-60); AST ASPARTATE AMINOTRANSFERASE 26 IU/L (10-42); BILIRUBIN,TOTAL 0.6 mg/dL (0.2-1.0); BUN - BLOOD UREA NITROGEN 43 mg/dL (6-20); CALCIUM 9.4 mg/dL (8.5-10.3); CARBON DIOXIDE - CO2 23 mmol/L (21-32); CHLORIDE 100 mmol/L (101-111); CHOL/HDL RATIO 3.3 (<4.4); CHOLESTEROL 167 mg/dL; CREATININE 5.4 mg/dL (0.4-1.0); GFR - MDRD 8 (>89); GLUCOSE 257 mg/dL (70-100); HDL CHOLESTEROL 51 mg/dL; LDL CHOLESTEROL,CALCULATED 91 mg/dL; LDL/HDL RATIO 1.8 (<4.4); SODIUM 136 mmol/L (135-145); TOTAL PROTEIN 7.2 g/dL (6.7-8.2); TRIGLYCERIDES 124 mg/dL; VLDL CHOLESTEROL 25 mg/dL
== END 2020-11-15 23:59 | disposition home or self-care (01) ==
LOC: LAB.WCP 08:44
PROVIDERS: ATTEND Nurse Practitioner Family
DX: D64.9 Anemia, unspecified (principal); E11.22 Type 2 diabetes mellitus with diabetic chronic kidney disease; I12.9 Hypertensive chronic kidney disease with stage 1 through stage 4 chronic kidney disease, or unspecified chronic kidney disease; N18.4 Chronic kidney disease, stage 4 (severe); N19 Unspecified kidney failure
CPT/HCPCS: 36415; 80053; 80061; 83036; 83721; 84443; 85025

== ENCOUNTER 2021-01-03 16:03 | Outpatient (CLI) | payer MEDICARE | END 2021-01-03 16:04 | disposition critical access hospital (66) | LOC: EMS 16:03 | DX: R53.1 Weakness (principal); H53.8 Other visual disturbances | CPT/HCPCS: A0425; A0427 ==

== ENCOUNTER 2021-01-03 16:27 | Emergency (ER) | payer MEDICAID, MEDICARE ==
[2021-01-03] MEDS ORDERED: LABETALOL 20 MG/4 ML SYRINGE IVP STA ×3 (17:09→21:18)
--- NOTE | 2021-01-03 17:12 | ED Physician Documentation ---
PD HPI FOCAL NEURO - Stated complaint Stated Complaint: WEAKNESS - Chief complaint Chief Complaint: Neuro - History obtained from History obtained from: Patient - Additional information Additional information: 70-year-old woman who goes to dialysis Wednesday and Wednesday presents with weakness and blurry vision starting in dialysis today. The weakness does not lateralize, legs more than arms but both legs and both arms are involved. Noted to have significant hypertension, 200/100 range. She states she did take her blood pressure medicine today. Review of Systems Ten Systems: 10 systems reviewed and negative Constitutional: denies: Fever, Chills Eyes: denies: Photophobia Ears: denies: Loss of hearing, Ear pain Nose: denies: Rhinorrhea / runny nose, Congestion PD PAST MEDICAL HISTORY - Past Medical History Cardiovascular: Hypertension Respiratory: None Endocrine/Autoimmune: Type 2 diabetes GI: None : None HEENT: Chronic vision loss Psych: None Musculoskeletal: Osteoarthritis Derm: None - Past Surgical History Past Surgical History: No HEENT: Cataracts - Present Medications Home Medications: Ambulatory Orders Medication Instructions Recorded Confirmed Insulin Glargine,Hum.rec.anlog 20 units SUBQ 2100 02/22/13 09/10/20 [Lantus] hydroCHLOROthiazide 12.5 mg PO DAILY 10/30/17 09/10/20 [Hydrochlorothiazide] Atorvastatin [Lipitor] 10 mg PO QPM #0 11/02/17 09/10/20 Clopidogrel [Plavix] 75 mg PO DAILY #0 11/02/17 09/10/20 Insulin Aspart [NovoLOG] 12 unit SUBQ TIDWM #0 11/02/17 09/10/20 amLODIPine [Norvasc] 10 mg PO DAILY #0 11/02/17 09/10/20 lisinopriL [Prinivil] 20 mg PO DAILY #0 11/02/17 09/10/20 - Allergies Allergies/Adverse Reactions: Allergies Allergy/AdvReac Type Severity Reaction Status Date / Time No Known Drug Allergies Allergy Verified 01/03/21 16:50 - Social History Does the pt smoke?: No Smoking Status: Never smoker Does the pt drink ETOH?: No Does the pt have substance abuse?: No - Immunizations Immunizations are current?: No - POLST Patient has POLST: No POLST Status: Full Code PD ED PE NORMAL - Vitals Vital signs reviewed: Yes - General General: Alert and oriented X 3, No acute distress - HEENT HEENT: Other (Dense cataract left eye, small pupils generally) - Neck Neck: Supple, no meningeal sign, No bony TTP - Cardiac Cardiac: RRR, No murmur - Respiratory Respiratory: No respiratory distress, Clear bilaterally - Abdomen Abdomen: Normal bowel sounds, Soft, Non tender - Back Back: No CVA TTP, No spinal TTP - Derm Derm: Normal color, Warm and dry, Other (Right upper chest wall Foster catheter without signs of infection) - Extremities Extremities: No edema, No calf tenderness / cord (Unable to lift either leg off the bed. Decent soaking pits supervisor strength in the upper extremities.) - Neuro Neuro: Alert and oriented X 3, No sensory deficit, Normal speech Eye Opening: Spontaneous Motor: Obeys Commands Verbal: Oriented GCS Score: 15 Results - Vitals Vitals: Vital Signs - 24 hr 01/03/21 01/03/21 01/03/21 16:42 17:30 17:35 Temperature 36.5 C Heart Rate 64 69 71 Respiratory 16 16 14 Rate Blood Pressure 209/81 H 227/97 H 175/82 H O2 Saturation 98 98 97 01/03/21 01/03/21 01/03/21 18:34 18:57 19:00 Temperature 36.0 C L Heart Rate 74 70 65 Respiratory 12 14 Rate Blood Pressure 217/87 H 131/69 H 136/60 H O2 Saturation 97 97 01/03/21 01/03/21 01/03/21 19:07 19:11 19:30 Temperature Heart Rate 67 63 63 Respiratory 16 Rate Blood Pressure 141/65 H 142/58 H 157/69 H O2 Saturation 95 01/03/21 01/03/21 01/03/21 20:00 20:30 20:49 Temperature 36.5 C Heart Rate 70 69 67 Respiratory 14 16 19 Rate Blood Pressure 185/81 H 186/79 H 180/80 H O2 Saturation 98 98 99 01/03/21 01/03/21 01/03/21 21:00 21:30 21:45 Temperature 36.5 C Heart Rate 67 65 65 Respiratory 15 16 16 Rate Blood Pressure 183/74 H 183/76 H 155/66 H O2 Saturation 98 98 98 Oxygen O2 Source [] Room air O2 Source Room air - EKG (time done) 1646 Rate: Rate (enter#) (66) Rhythm: NSR [place]: Normal Intervals: Normal ND QRS: Normal Ischemia: Normal ST segments - Labs Labs: Laboratory Tests 01/03/21 01/03/21 01/03/21 17:45 17:45 17:45 WBC 9.5 RBC 3.87 L Hgb 12.4 Hct 36.2 L MCV 93.5 MCH 32.0 H MCHC 34.3 RDW 13.4 Plt Count 196 MPV 9.8 Neut # (Auto) 7.0 H Lymph # (Auto) 1.8 [place] # (Auto) 0.5 Eos # (Auto) 0.1 Baso # (Auto) 0.0 Absolute Nucleated RBC 0.00 Nucleated RBC % 0.0 Sodium 134 L Potassium 3.6 Chloride 95 L Carbon Dioxide 26 Anion Gap 13.0 BUN 23 H Creatinine 3.7 H Estimated GFR (MDRD) 12 L Glucose 128 H Calcium 8.4 L Total Bilirubin 0.8 AST 20 ALT 16 Alkaline Phosphatase 67 Troponin I High Sens 11.1 Total Protein 7.0 Albumin 4.1 Globulin 2.9 Albumin/Globulin Ratio 1.4 Lipase 26 Nasal Adenovirus (PCR) Nasal B. parapertussis DNA (PCR) Nasal Coronavir 229E PCR Nasal Coronavir HKU1 PCR Nasal Coronavir NL63 PCR Nasal Coronavir OC43 PCR Nasal Enterovir/Rhinovir PCR Nasal Influenza B PCR Nasal Influenza A PCR Nasal Parainfluen 1 PCR Nasal Parainfluen 2 PCR Nasal Parainfluen 3 PCR Nasal Parainfluen 4 PCR Nasal RSV (PCR) Nasal B.pertussis DNA PCR Nasal C.pneumoniae (PCR) Lamin Human Metapneumo PCR Nasal M.pneumoniae (PCR) Nasal SARS-CoV-2 (PCR) 01/03/21 18:55 WBC RBC Hgb Hct MCV MCH MCHC RDW Plt Count MPV Neut # (Auto) Lymph # (Auto) [place]bert # (Auto) Eos # (Auto) Baso # (Auto) Absolute Nucleated RBC Nucleated RBC % Sodium Potassium Chloride Carbon Dioxide Anion Gap BUN Creatinine Estimated GFR (MDRD) Glucose Calcium Total Bilirubin AST ALT Alkaline Phosphatase Troponin I High Sens Total Protein Albumin Globulin Albumin/Globulin Ratio Lipase Nasal Adenovirus (PCR) NOT DETECTED Nasal B. parapertussis DNA (PCR) NOT DETECTED Nasal Coronavir 229E PCR NOT DETECTED Nasal Coronavir HKU1 PCR NOT DETECTED Nasal Coronavir NL63 PCR NOT DETECTED Nasal Coronavir OC43 PCR NOT DETECTED Nasal Enterovir/Rhinovir PCR NOT DETECTED Nasal Influenza B PCR NOT DETECTED Nasal Influenza A PCR NOT DETECTED Nasal Parainfluen 1 PCR NOT DETECTED Nasal Parainfluen 2 PCR NOT DETECTED Nasal Parainfluen 3 PCR NOT DETECTED Nasal Parainfluen 4 PCR NOT DETECTED Nasal RSV (PCR) NOT DETECTED Nasal B.pertussis DNA PCR NOT DETECTED Nasal C.pneumoniae (PCR) NOT DETECTED Lamin Human Metapneumo PCR NOT DETECTED Nasal M.pneumoniae (PCR) NOT DETECTED Nasal SARS-CoV-2 (PCR) NOT DETECTED PD MEDICAL DECISION MAKING - ED course ED course: 70-year-old woman presents with acute bilateral lower extremity weakness, left lower extremity pain. She is a dialysis patient and has uncontrolled blood pressures. She is not encephalopathic. Work-up in the emergency department consisted of a CT of the head which showed a large remote left MCA infarct, but no evidence of acute abnormality. Her blood pressure was managed with divided doses of labetalol without much effect. Her examination did not change significantly while in the department and she may need further work-up including MRI. Call placed to [facility] for transfer at 6:30 PM. Her supportive friend, Le, is available at [phone] Spoke with furnace brazer there, Dr. Salazar at 6:50 PM and he agrees with transport. Spoke with Dr. Howell at [facility] who accepts patient in transfer. 1937 - Critical Care Time(min): 45 Time Includes: Direct patient care, Review records, Reassess patient, Document care, Coordinate care, Medical consult, Family consult for tx dec, See progress note (multiple dosing IV antihypertensives) Procedures included in critical care time: Peripheral IV Procedures excluded from critical care time: EKG Departure - Departure Disposition: 02 Transfer Acute Care Hosp Clinical Impression: Headache, T2DM (type 2 diabetes mellitus), Weakness, ESRD (end stage renal disease) Condition: Stable Discharge Date/Time: 01/03/21 21:45
[2021-01-03 17:50] LABS: BASOPHILS % (AUTO) 0.3 %; EOSINOPHILS # (AUTO) 0.1 10^3/uL (0.0-0.7); EOSINOPHILS % (AUTO) 0.9 %; HCT - HEMATOCRIT 36.2 % (37.0-47.0); HGB - HEMOGLOBIN 12.4 g/dL (12.0-16.0); LYMPHOCYTES # (AUTO) 1.8 10^3/uL (1.5-3.5); LYMPHOCYTES % (AUTO) 19.2 %; MEAN CORPUSCULAR HGB CONC 34.3 g/dL (32.0-36.0); MEAN CORPUSCULAR VOLUME 93.5 fL (81.0-99.0); MEAN PLATELET VOLUME 9.8 fL (7.9-10.8); MONOCYTES # (AUTO) 0.5 10^3/uL (0.0-1.0); MONOCYTES % (AUTO) 5.7 %; NEUTROPHILS % (AUTO) 73.6 %; PLT - PLATELET COUNT 196 10^3/uL (130-450); RED BLOOD COUNT 3.87 10^6/uL (4.20-5.40); RED CELL DISTRIBUTION WIDTH 13.4 % (12.0-15.0); WHITE BLOOD COUNT 9.5 x10^3/uL (4.8-10.8)
[2021-01-03 18:03] LABS: ALBUMIN 4.1 g/dL (3.2-5.5); ALBUMIN/GLOBULIN RATIO 1.4 (1.0-2.2); BILIRUBIN,TOTAL 0.8 mg/dL (0.2-1.0); CALCIUM 8.4 mg/dL (8.5-10.3); CREATININE 3.7 mg/dL (0.4-1.0); POTASSIUM 3.6 mmol/L (3.5-5.0)
--- NOTE | 2021-01-03 18:15 | CT Report ---
PROCEDURE: HEAD WO INDICATIONS: weakness TECHNIQUE: Noncontrast 4.5 mm thick angled axial sections acquired from the foramen magnum to the vertex. For r adiation dose reduction, the following was used: automated exposure control, adjustment of mA and/or kV according to patient size. COMPARISON: Correlation is made with prior head CT examinations, 01/02/2016 and 10/30/2017. Correlation is also made with head CT angiogram, 01/04/2016. Correlation is also made with prior brain MRI, 018. FINDINGS: Image quality: Excellent. CSF spaces: Basal cisterns are patent. No extra-axial fluid collections. Ventricles are normal in size and shape. Brain: A remote left MCA infarction is again seen, which is stable compared to 2018. No midline shif t. No intracranial masses or hemorrhage. Monique-white matter interface is normal. Central calcificat ion can be seen of the basal ganglia, which is considered to be normal for age. Skull and face: Calvarium and visualized facial bones are intact, without suspicious lesions. Sinuses: Visualized sinuses and mastoids are clear. IMPRESSION: No sujit, acute abnormality can be seen. There is a stable, remote left MCA territory infarction. If there is strong clinical concern for a stroke, please consider a dedicated brain MRI for further e valuation (assuming that there is no contraindication to MRI). Reviewed by: Daniel Rivers MD on 01/03/2021 5:14 PM [place] Approved by: Daniel Rivers MD on 01/03/2021 5:14 PM [place] Station ID: [id number]
--- OUTSIDE RECORDS SUMMARY | 2021-01-03 18:20 | EXTERNAL MEDICAL SUMMARY RPT | Continuity of Care Document ---
:1950 Demographics Phone Unavailable Preferred Language Unknown Marital Status Unknown Buddhist Affiliation Unknown Race Unknown Ethnic Group Unknown Author Organization [facility] Address [address] [phone] Phone Allergies Encounters Medications Problems Results
[2021-01-03] MEDS ORDERED: MORPHINE 2 MG/ML CARPUJECT IVP STA ×2 (18:30→21:18)
[2021-01-03 19:48] LABS: B. PARAPERTUSSIS- RESP PCR PAN NOT DETECTED; B. PERTUSSIS- RESP PCR PANEL NOT DETECTED; C. PNEUMONIAE- RESP PCR PANEL NOT DETECTED; CORONAVIRUS 229E-RESP PCR NOT DETECTED; CORONAVIRUS HKU1-RESP PCR NOT DETECTED; CORONAVIRUS NL63-RESP PCR NOT DETECTED; CORONAVIRUS OC43-RESP PCR NOT DETECTED; HUMAN METAPNEUMOVIRUS NOT DETECTED; INFLUENZA A- RESP PCR PANEL NOT DETECTED; INFLUENZA B - RESP PCR PANEL NOT DETECTED; M. PNEUMONIAE- RESP PCR PANEL NOT DETECTED; PARAINFLUENZA VIRUS 1 NOT DETECTED; PARAINFLUENZA VIRUS 2 NOT DETECTED; PARAINFLUENZA VIRUS 3 NOT DETECTED; PARAINFLUENZA VIRUS 4 NOT DETECTED; RHINOVIRUS/ENTEROVIRUS NOT DETECTED; RSV- RESP PCR PANEL NOT DETECTED; SARS-CoV-2 -RESP PCR PANEL NOT DETECTED
[2021-01-03 21:45] VITALS: BP 155/66
== END 2021-01-03 21:45 | disposition short-term general hospital (02) ==
LOC: EDUNIT# → ED 16:27
DX: R51.9 Headache, unspecified (principal); R53.1 Weakness; R29.898 Other symptoms and signs involving the musculoskeletal system; I12.0 Hypertensive chronic kidney disease with stage 5 chronic kidney disease or end stage renal disease; E11.22 Type 2 diabetes mellitus with diabetic chronic kidney disease; N18.6 End stage renal disease; Z99.2 Dependence on renal dialysis; Z79.4 Long term (current) use of insulin; Z86.73 Personal history of transient ischemic attack (TIA), and cerebral infarction without residual deficits; Z79.02 Long term (current) use of antithrombotics/antiplatelets; Z20.822 Contact with and (suspected) exposure to COVID-19; H26.9 Unspecified cataract
CPT/HCPCS: 0202U; 36415; 80053; 83690; 84484; 85025; 93005; 96374; 96375; 96376; 99291

== ENCOUNTER 2021-01-03 21:48 | Outpatient (CLI) | payer MEDICARE | END 2021-01-03 21:49 | disposition short-term general hospital (02) | LOC: EMS 21:48 | PROVIDERS: ATTEND Emergency Medicine | DX: R53.1 Weakness (principal); N18.6 End stage renal disease; Z99.2 Dependence on renal dialysis | CPT/HCPCS: A0425; A0426 ==

== ENCOUNTER 2021-01-10 15:56 | Outpatient (CLI) | payer MEDICARE | END 2021-01-10 15:57 | disposition critical access hospital (66) | LOC: EMS 15:56 | DX: R53.1 Weakness (principal); I95.9 Hypotension, unspecified | CPT/HCPCS: A0425; A0429 ==

== ENCOUNTER 2021-01-10 16:24 | Emergency (ER) | payer MEDICARE ==
[2021-01-10 16:57] LABS: BASOPHILS % (AUTO) 0.2 %; EOSINOPHILS # (AUTO) 0.2 10^3/uL (0.0-0.7); EOSINOPHILS % (AUTO) 1.8 %; HCT - HEMATOCRIT 33.5 % (37.0-47.0); HGB - HEMOGLOBIN 11.3 g/dL (12.0-16.0); LYMPHOCYTES # (AUTO) 1.1 10^3/uL (1.5-3.5); LYMPHOCYTES % (AUTO) 10.7 %; MEAN CORPUSCULAR HEMOGLOBIN 31.4 pg (27.0-31.0); MEAN CORPUSCULAR HGB CONC 33.7 g/dL (32.0-36.0); MEAN CORPUSCULAR VOLUME 93.1 fL (81.0-99.0); MEAN PLATELET VOLUME 9.9 fL (7.9-10.8); MONOCYTES # (AUTO) 0.8 10^3/uL (0.0-1.0); MONOCYTES % (AUTO) 7.1 %; NEUTROPHILS # (AUTO) 8.3 10^3/uL (1.5-6.6); NEUTROPHILS % (AUTO) 79.1 %; PLT - PLATELET COUNT 197 10^3/uL (130-450); RED CELL DISTRIBUTION WIDTH 13.2 % (12.0-15.0); WHITE BLOOD COUNT 10.5 x10^3/uL (4.8-10.8)
--- OUTSIDE RECORDS SUMMARY | 2021-01-10 16:59 | EXTERNAL MEDICAL SUMMARY RPT | Continuity of Care Document ---
:1950 Demographics Phone Unavailable Preferred Language Unknown Marital Status Unknown Hindu Affiliation Unknown Race Unknown Ethnic Group Unknown Author Organization [facility] Address [address] [phone] Phone Allergies Encounters Medications Problems Results
--- NOTE | 2021-01-10 17:00 | ED Physician Documentation ---
History of Present Illness - Stated complaint Stated Complaint: HYPOTENSION - Chief complaint Chief Complaint: Cardiac - Additonal information Additional information: 70-year-old dialysis lady is brought to the emergency department for evaluation of hypotension that was noted after hurting her typical dialysis run today. Her blood pressures were briefly in the 80s and 90s. They improved to normal and hypertensive after she received 500 mils of fluid via EMS. She was seen in this ER about 1 week ago for lower extremity weakness. CT of the head was shown to have a large right remote MCA infarct. She was ultimately transferred to [facility]. It is unclear what the treatment was of that hospitalization. Patient was recommended go to [facility] via EMS but she declined transfer there and presents to [facility] Here today patient's blood pressure has improved though she is complaining of left hip and groin pain. There does not appear to be any focal weakness in the left leg. Review of Systems Constitutional: denies: Fever, Chills Eyes: reports: Reviewed and negative Ears: reports: Reviewed and negative Nose: reports: Reviewed and negative Throat: reports: Reviewed and negative Cardiac: reports: Reviewed and negative Respiratory: reports: Reviewed and negative GI: reports: Reviewed and negative : reports: Reviewed and negative Skin: reports: Reviewed and negative Musculoskeletal: reports: Reviewed and negative Neurologic: reports: Generalized weakness PD PAST MEDICAL HISTORY - Past Medical History Cardiovascular: Hypertension Respiratory: None Endocrine/Autoimmune: Type 2 diabetes GI: None : None HEENT: Chronic vision loss Psych: None Musculoskeletal: Osteoarthritis Derm: None - Past Surgical History Past Surgical History: No HEENT: Cataracts - Present Medications Home Medications: Ambulatory Orders Medication Instructions Recorded Confirmed Insulin Glargine,Hum.rec.anlog 20 units SUBQ 2100 02/22/13 01/10/21 [Lantus] hydroCHLOROthiazide 12.5 mg PO DAILY 10/30/17 01/10/21 [Hydrochlorothiazide] Atorvastatin [Lipitor] 10 mg PO QPM #0 11/02/17 01/10/21 Clopidogrel [Plavix] 75 mg PO DAILY #0 11/02/17 01/10/21 Insulin Aspart [NovoLOG] 12 unit SUBQ TIDWM #0 11/02/17 01/10/21 amLODIPine [Norvasc] 10 mg PO DAILY #0 11/02/17 01/10/21 lisinopriL [Prinivil] 20 mg PO DAILY #0 11/02/17 01/10/21 - Allergies Allergies/Adverse Reactions: Allergies Allergy/AdvReac Type Severity Reaction Status Date / Time No Known Drug Allergies Allergy Verified 01/10/21 16:35 - Social History Does the pt smoke?: No Smoking Status: Never smoker Does the pt drink ETOH?: No Does the pt have substance abuse?: No - Immunizations Immunizations are current?: No - POLST Patient has POLST: No POLST Status: Full Code PD ED PE EXPANDED - General General: Alert, In Pain - Cardiac Cardiac: Regular Rate, Radial strong equal, Pedal strong equal, Cap refill < 2 sec, Chest wall TTP (right chest vas-cath) - Respiratory Respiratory: Clear to ausultation ana. No: Distress, Labored - Abdomen Abdomen: Normal Bowel sounds, LLQ - Derm Derm: Normal color, Warm and dry - Extremities Extremities: Other (pain in righ thip; no weakness in the right leg, normal dorsi and plant flexion. FULL active and passive ROM of right hip though painful) - Neuro Neuro: CNII-XII intact - GCS Eye Opening: Spontaneous Motor: Obeys Commands Verbal: Oriented Total: 15 Results - Vitals Vitals: Vital Signs - 24 hr 01/10/21 01/10/21 01/10/21 16:24 16:38 17:44 Temperature 36.9 C Heart Rate 82 83 80 Respiratory 18 17 23 Rate Blood Pressure 189/79 H 191/87 H 159/73 H O2 Saturation 97 98 94 01/10/21 01/10/21 01/10/21 18:06 18:07 20:00 Temperature 36.8 C Heart Rate 77 77 71 Respiratory 15 17 16 Rate Blood Pressure 213/88 H 199/80 H 181/91 H O2 Saturation 94 93 95 01/10/21 21:14 Temperature 36.8 C Heart Rate 75 Respiratory 15 Rate Blood Pressure 182/91 H O2 Saturation 95 Oxygen O2 Source [] Room air O2 Source Room air - Labs Labs: Laboratory Tests 01/10/21 01/10/21 16:51 16:51 WBC 10.5 RBC 3.60 L Hgb 11.3 L Hct 33.5 L MCV 93.1 MCH 31.4 H MCHC 33.7 RDW 13.2 Plt Count 197 MPV 9.9 Neut # (Auto) 8.3 H Lymph # (Auto) 1.1 L [place] # (Auto) 0.8 Eos # (Auto) 0.2 Baso # (Auto) 0.0 Absolute Nucleated RBC 0.00 Nucleated RBC % 0.0 Sodium 133 L Potassium 3.6 Chloride 95 L Carbon Dioxide 28 Anion Gap 10.0 BUN 19 Creatinine 3.4 H Estimated GFR (MDRD) 13 L Glucose 122 H Calcium 8.5 Total Bilirubin 0.8 AST 23 ALT 20 Alkaline Phosphatase 64 Total Protein 7.1 Albumin 4.0 Globulin 3.1 Albumin/Globulin Ratio 1.3 Lipase 21 L - Rads (name of study) left hip xray Radiology: Final report received (Study is nondiagnostic for presence or absence of an intertrochanteric hip fracture) CT abd Radiology: Final report received (Bladder contains a relatively large gallstone which shows no evidence of associated inflammation or obstruction. No definite evidence of hip fracture on axial sagittal and coronal imaging.) PD MEDICAL DECISION MAKING - ED course Complexity details: reviewed results, re-evaluated patient, considered differential ED course: 70-year-old female comes to the emergency department after a brief episode of hypotension which followed her dialysis this afternoon. She did run for nearly 3 hours and had a soft blood pressure in the 90s. Her blood pressure rebounded nicely on the time that she arrived here in the ER after EMS had given 500 mils of fluids. In fact here in the ER she has been hypertensive. The patient was transferred last week to [facility] for concerns of generalized weakness and a CT that showed a remote MCA infarct. I have requested the records from [facility] but that has not come through. Here in the ER the patient had reported left hip and groin pain. Lateral x-ray of the hip and pelvis did not reveal any obvious fracture but if she also reported groin and left lower quadrant abdominal pain a CT was completed that also did not show any acute findings. Screening labs were appropriate for hx of dm, htn ad ESRD on 2x weekly dialysis. Here in the emergency department the patient was able to ambulate to the bathroom without assistance. A walker will be provided for comfort. No acute findings are seen on today's exam. She will be discharged home to continue follow-up with primary care provider. Departure - Departure Disposition: 01 Home, Self Care Clinical Impression: ESRD on dialysis, Left hip pain Condition: Stable Record reviewed to determine appropriate education?: Yes Comments: You were seen in the ER today after developing some mild low blood pressure after dialysis. This can be common. Your screening labs today do not show any worrisome findings. Your blood pressure has been elevated during today's ER visit. You did report left hip and groin pain a CT of the abdomen showed no findings in the hip or groin to suggest a cause for your pain. There is an incidental finding of a large gallstone in your gallbladder. Please discuss this with your primary care doctor you should be referred to a surgeon in the long-term for follow-up. Return to the ER if you develop fevers have uncontrolled pain uncontrolled vomiting. It is important you continue to take all your other medications as already prescribed Discharge Date/Time: 01/10/21 21:14
[2021-01-10 17:11] LABS: ALBUMIN/GLOBULIN RATIO 1.3 (1.0-2.2); BILIRUBIN,TOTAL 0.8 mg/dL (0.2-1.0); CALCIUM 8.5 mg/dL (8.5-10.3); CREATININE 3.4 mg/dL (0.4-1.0); POTASSIUM 3.6 mmol/L (3.5-5.0); TOTAL PROTEIN 7.1 g/dL (6.7-8.2)
[2021-01-10] MEDS ORDERED: fentaNYL 100 MCG/2 ML VIAL IVP STA ×2 (17:46→18:48)
--- NOTE | 2021-01-10 18:02 | XRAY Report ---
PROCEDURE: Hip w/Pelvis 2-3V LT INDICATIONS: pain in left hip TECHNIQUE: AP pelvis with lateral view(s) of the left hip(s). COMPARISON: 09/10/2020 abdomen/pelvis CT. FINDINGS: Bones: No dislocations. There are diagonal lucencies crossing the intertrochanteric area of the lef t hip, and the body habitus is large resulting in multiple skin folds crossing the area of current cl inical concern. The area of concern on the lateral view of the left hip is obscured by body habitus a nd skin folds. Pelvic ring appears intact. No suspicious bony lesions. Soft tissues: The visualized bowel gas pattern is normal. No suspicious soft tissue calcifications. IMPRESSION: This study is nondiagnostic for presence or absence of an intertrochanteric hip fracture due to the factors discussed above. CT scanning is recommended. Reviewed by: Layton Jones MD on 01/10/2021 6:01 PM PDT Approved by: Layton Jones MD on 01/10/2021 6:01 PM PDT Station ID: [id number]
--- NOTE | 2021-01-10 18:09 | CT Report ---
PROCEDURE: Abdomen/Pelvis WO INDICATIONS: left hip, LLQ abd pain TECHNIQUE: Noncontrast 5 mm thick sections acquired from the diaphragms to the symphysis. 5 mm coronal and sagi ttal reformats were then performed. For radiation dose reduction, the following was used: automated exposure control, adjustment of mA and/or kV according to patient size. COMPARISON: Pelvis plain film imaging same day.. FINDINGS: Image quality: Excellent. ABDOMEN: Lung bases: Lung bases are clear. Heart size is normal. Solid organs: Liver and spleen are normal in size. Gallbladder contains a 1 cm gallstone which show s no evidence of inflammation or biliary obstruction. Pancreas is normal in contours. No adrenal no dules. Kidneys are normal in size, without hydronephrosis or nephrolithiasis. Peritoneum and bowel: Unenhanced bowel loops demonstrate normal wall thickness and caliber. No free fluid or air. Nodes and vessels: No retroperitoneal or mesenteric adenopathy by size criteria. Aorta and inferior vena cava are normal in caliber. Miscellaneous: No ventral hernias. PELVIS: Genitourinary: Bladder wall thickness is normal. Miscellaneous: No inguinal hernias or adenopathy. Bones: No suspicious bony lesions. No vertebral body compression fractures. There is a possible fr acture involving the intertrochanteric left hip appear to have represented overlapping fat and skin f olds on the plain film imaging from same day. No hip fracture is found. IMPRESSION: The gallbladder contains a relatively large gallstone which shows no evidence of associated gallbladd er inflammation or biliary obstruction. The prior plain film imaging had raises concern for whether a intertrochanteric left hip fracture was present. The current imaging shows no definite evidence of hip fracture on axial, sagittal and coron al imaging. No additional fracture elsewhere is seen. If unusual symptomatology persists follow-up [facility] MR scanning would be recommended which can detect fractures that are not visible by CT scanning or plain film imaging. A screening pelvic MR protocol could be utilized, without contrast. Reviewed by: Layton Jones MD on 01/10/2021 6:08 PM PDT Approved by: Layton Jones MD on 01/10/2021 6:08 PM PDT Station ID: [id number]
[2021-01-10 21:15] VITALS: BP 182/91
== END 2021-01-10 21:14 | disposition home or self-care (01) ==
LOC: EDUNIT# → SUPCPDRO 16:24 → ED 16:24
DX: I95.9 Hypotension, unspecified (principal); M25.552 Pain in left hip; R10.2 Pelvic and perineal pain; K80.20 Calculus of gallbladder without cholecystitis without obstruction; I12.0 Hypertensive chronic kidney disease with stage 5 chronic kidney disease or end stage renal disease; E11.22 Type 2 diabetes mellitus with diabetic chronic kidney disease; N18.6 End stage renal disease; Z99.2 Dependence on renal dialysis; Z79.4 Long term (current) use of insulin; Z86.73 Personal history of transient ischemic attack (TIA), and cerebral infarction without residual deficits; Z79.02 Long term (current) use of antithrombotics/antiplatelets
CPT/HCPCS: 36415; 80053; 83690; 85025; 96374; 96376; 99284

== ENCOUNTER 2021-01-24 15:45 | Outpatient (CLI) | payer MEDICARE, MEDICAID | END 2021-01-24 15:46 | disposition critical access hospital (66) | LOC: EMS 15:45 | DX: R11.2 Nausea with vomiting, unspecified (principal); R10.13 Epigastric pain | CPT/HCPCS: A0425; A0427 ==

== ENCOUNTER 2021-01-24 16:09 | Emergency (ER) | payer MEDICARE, MEDICAID ==
[2021-01-24] MEDS ORDERED: ONDANSETRON 4 MG/2 ML VIAL IVP STA (16:40)
[2021-01-24] MEDS ORDERED: MORPHINE 2 MG/ML CARPUJECT IVP STA (16:40)
--- NOTE | 2021-01-24 16:43 | ED Physician Documentation ---
History of Present Illness - Stated complaint Stated Complaint: N/V - Chief complaint Chief Complaint: General - History obtained from History obtained from: Patient (History taken with the manager competitive intelligence tablet as she speaks only Tagalog.) - Additonal information Additional information: 70-year-old woman undergoing dialysis has had a lot of trouble in dialysis lately. After every dialysis episode she gets sick. Presents by ambulance today with vomiting, epigastric pain, headache, chest discomfort. She says she has to call 911 after every episode of dialysis. She has had a fairly thorough work-up without pertinent positive findings. Review of Systems Ten Systems: 10 systems reviewed and negative Constitutional: denies: Fever, Chills Ears: reports: Reviewed and negative Nose: reports: Reviewed and negative Throat: reports: Reviewed and negative Cardiac: reports: Reviewed and negative PD PAST MEDICAL HISTORY - Past Medical History Cardiovascular: Hypertension Respiratory: None Endocrine/Autoimmune: Type 2 diabetes GI: None : None HEENT: Chronic vision loss Psych: None Musculoskeletal: Osteoarthritis Derm: None - Past Surgical History Past Surgical History: No HEENT: Cataracts - Present Medications Home Medications: Ambulatory Orders Medication Instructions Recorded Confirmed Insulin Glargine,Hum.rec.anlog 4 units SUBQ 2100 02/22/13 01/24/21 [Lantus] Atorvastatin [Lipitor] 10 mg PO QPM #0 11/02/17 01/24/21 Clopidogrel [Plavix] 75 mg PO DAILY #0 11/02/17 01/24/21 amLODIPine [Norvasc] 10 mg PO DAILY #0 11/02/17 01/24/21 Esomeprazole Magnesium [Nexium] 40 mg PO BID 01/24/21 01/24/21 Furosemide [Lasix] 60 mg PO DAILY 01/24/21 01/24/21 Hydralazine HCl 50 mg PO QID 01/24/21 01/24/21 Insulin Aspart [NovoLOG] 4 unit SUBQ TIDWM PRN 01/24/21 01/24/21 carvediloL [Coreg] 12.5 mg PO BID 01/24/21 01/24/21 - Allergies Allergies/Adverse Reactions: Allergies Allergy/AdvReac Type Severity Reaction Status Date / Time No Known Drug Allergies Allergy Verified 01/24/21 16:26 - Social History Does the pt smoke?: No Smoking Status: Never smoker Does the pt drink ETOH?: No Does the pt have substance abuse?: No - Immunizations Immunizations are current?: No - POLST Patient has POLST: No POLST Status: Full Code PD ED PE NORMAL - Vitals Vital signs reviewed: Yes - General General: Alert and oriented X 3, No acute distress - HEENT HEENT: EOMI, Other (She appears uncomfortable and is keeping her eyes closed for the most part. She will open her eyes, has a dense cataract on the left.) - Neck Neck: Supple, no meningeal sign, No bony TTP - Cardiac Cardiac: RRR, No murmur - Respiratory Respiratory: No respiratory distress, Clear bilaterally - Abdomen Abdomen: Non tender - Back Back: No CVA TTP, No spinal TTP - Derm Derm: Normal color, Warm and dry - Extremities Extremities: No edema, No calf tenderness / cord - Neuro Neuro: Alert and oriented X 3, Normal speech Results - Vitals Vitals: Vital Signs - 24 hr 01/24/21 01/24/21 16:20 18:04 Temperature 36.6 C Heart Rate 75 72 Respiratory 24 16 Rate Blood Pressure 245/92 H 213/80 H O2 Saturation 97 98 Oxygen O2 Source [] Room air O2 Source Room air - EKG (time done) 1646 Rate: Rate (enter#) (81) Rhythm: NSR [place]: Normal Intervals: Prolonged FL QRS: LVH Ischemia: Normal ST segments - Labs Labs: Laboratory Tests 01/24/21 01/24/21 01/24/21 17:25 17:25 17:44 WBC 13.0 H RBC 3.39 L Hgb 10.6 L Hct 30.4 L MCV 89.7 MCH 31.3 H MCHC 34.9 RDW 13.4 Plt Count 201 MPV 9.2 Neut # (Auto) 11.1 H Lymph # (Auto) 0.9 L [place] # (Auto) 0.7 Eos # (Auto) 0.1 Baso # (Auto) 0.0 Absolute Nucleated RBC 0.00 Nucleated RBC % 0.0 Sodium 128 L Potassium 3.1 L Chloride 94 L Carbon Dioxide 23 Anion Gap 11.0 BUN 25 H Creatinine 4.2 H Estimated GFR (MDRD) 10 L Glucose 249 H Calcium 8.0 L Phosphorus 2.8 Magnesium 1.8 Troponin I High Sens 22.4 H* PD MEDICAL DECISION MAKING - ED course ED course: 70-year-old woman presents feeling ill after dialysis today. Her exam is normal, work-up demonstrates mildly elevated troponin which is not unexpected in a dialysis patient. I talked with her at length, she is frustrated by the fact that she is getting sick after every dialysis. She is considering stopping it but will discuss that with her physician. Labs are otherwise unremarkable in a dialysis patient except for mild hypokalemia, she was given a single dose of potassium here. Departure - Departure Disposition: 01 Home, Self Care Clinical Impression: Weakness, ESRD (end stage renal disease) Abdominal pain Qualifiers: Abdominal location: epigastric Qualified Code(s): R10.13 - Epigastric pain Condition: Good Record reviewed to determine appropriate education?: Yes Instructions: ED Abdominal Pain Unkn Cause Comments: Talk with your doctor and Dr. Angeles about whether or not dialysis is worth it to you. Return for new or worsening symptoms.
[2021-01-24 17:43] LABS: CREATININE 4.2 mg/dL (0.4-1.0); MAGNESIUM 1.8 mg/dL (1.7-2.8); PHOSPHORUS 2.8 mg/dL (2.5-4.6); POTASSIUM 3.1 mmol/L (3.5-5.0)
[2021-01-24 17:48] LABS: BASOPHILS % (AUTO) 0.2 %; EOSINOPHILS # (AUTO) 0.1 10^3/uL (0.0-0.7); EOSINOPHILS % (AUTO) 0.8 %; HCT - HEMATOCRIT 30.4 % (37.0-47.0); HGB - HEMOGLOBIN 10.6 g/dL (12.0-16.0); LYMPHOCYTES # (AUTO) 0.9 10^3/uL (1.5-3.5); LYMPHOCYTES % (AUTO) 7.2 %; MEAN CORPUSCULAR HEMOGLOBIN 31.3 pg (27.0-31.0); MEAN CORPUSCULAR HGB CONC 34.9 g/dL (32.0-36.0); MEAN CORPUSCULAR VOLUME 89.7 fL (81.0-99.0); MEAN PLATELET VOLUME 9.2 fL (7.9-10.8); MONOCYTES # (AUTO) 0.7 10^3/uL (0.0-1.0); MONOCYTES % (AUTO) 5.7 %; NEUTROPHILS # (AUTO) 11.1 10^3/uL (1.5-6.6); NEUTROPHILS % (AUTO) 85.8 %; PLT - PLATELET COUNT 201 10^3/uL (130-450); RED BLOOD COUNT 3.39 10^6/uL (4.20-5.40); RED CELL DISTRIBUTION WIDTH 13.4 % (12.0-15.0)
[2021-01-24] MEDS ORDERED: POTASSIUM CHLORIDE 20 MEQ TABLET PO STA (18:33)
[2021-01-24 19:26] VITALS: BP 204/89
[2021-01-24] MEDS ORDERED: ONDANSETRON ODT 4 MG TABLET TL STA (19:37)
== END 2021-01-24 19:48 | disposition home or self-care (01) ==
LOC: EDUNIT# → SUPCPDRO 16:09 → ED 16:09
DX: R53.1 Weakness (principal); E11.22 Type 2 diabetes mellitus with diabetic chronic kidney disease; I12.0 Hypertensive chronic kidney disease with stage 5 chronic kidney disease or end stage renal disease; N18.6 End stage renal disease; Z99.2 Dependence on renal dialysis; Z79.4 Long term (current) use of insulin
CPT/HCPCS: 36415; 80048; 83735; 84100; 84484; 85025; 93005; 96374; 96375; 99283; 99284; A9270; Q0162

== ENCOUNTER 2021-02-21 09:18 | Outpatient (CLI) | payer MEDICARE, MEDICAID ==
--- NOTE | 2021-02-21 11:37 | XRAY Report ---
PROCEDURE: Hip w/Pelvis 2-3V LT INDICATIONS: HIP PAIN TECHNIQUE: AP pelvis with lateral view of the left hip. COMPARISON: Left hip radiographs 01/10/2021 FINDINGS: Bones: No acute fractures or dislocations. Pelvic ring appears intact. No suspicious bony lesions. Mild degenerative changes in the included lower lumbar spine. There is mild spurring of the lateral acetabula bilaterally. Soft tissues: The visualized bowel gas pattern is normal. No suspicious soft tissue calcifications. Arterial vascular calcifications are noted in the thigh. IMPRESSION: No acute osseous abnormality. Mild symmetric hip osteoarthrosis. Reviewed by: Misael Linton MD on 02/21/2021 10:36 AM [facility] Approved by: Misael Linton MD on 02/21/2021 10:36 AM [facility] Station ID: [id number]
== END 2021-02-21 09:19 | disposition home or self-care (01) ==
LOC: DI 09:18
PROVIDERS: ATTEND Family Medicine
DX: M16.12 Unilateral primary osteoarthritis, left hip (principal)

== ENCOUNTER 2021-02-24 12:29 | Outpatient (CLI) | payer MEDICARE, MEDICAID | END 2021-02-24 23:59 | disposition critical access hospital (66) | LOC: EMS 12:29 | DX: S09.90XA Unspecified injury of head, initial encounter (principal); W18.30XA Fall on same level, unspecified, initial encounter; Y93.89 Activity, other specified; Y92.121 Bathroom in nursing home as the place of occurrence of the external cause; R11.2 Nausea with vomiting, unspecified | CPT/HCPCS: A0425; A0427 ==

== ENCOUNTER 2021-02-24 12:34 | Emergency (ER) | payer MEDICARE, MEDICAID ==
--- NOTE | 2021-02-24 12:39 | ED Physician Documentation ---
PD HPI Fall - Stated complaint Stated Complaint: GLF - History obtained from History obtained from: Patient, EMS - Additional information Additional information: 70-year-old dialysis dependent woman comes from a [facility]. Usually is sup posed to be assisted with walking but was walking on her own and fell forward hitting her forehead on the ground. Unclear if there was loss of consciousness but she did become slightly lethargic and nauseous vomiting at least once. She is due for dialysis today. She is on Plavix. As such she was brought in as a modified trauma. Prehospital she received 4 mg Zofran IV and the blood sugar was in the 150s with heart rate of 60s and normal sinus rhythm. Review of Systems Constitutional: denies: Fever, Chills Nose: denies: Rhinorrhea / runny nose, Congestion Cardiac: denies: Chest pain / pressure, Palpitations Respiratory: denies: Dyspnea, Cough PD PAST MEDICAL HISTORY - Past Medical History Cardiovascular: Hypertension Respiratory: None Endocrine/Autoimmune: Type 2 diabetes GI: None : None HEENT: Chronic vision loss Psych: None Musculoskeletal: Osteoarthritis Derm: None - Past Surgical History Past Surgical History: No HEENT: Cataracts - Present Medications Home Medications: Ambulatory Orders Medication Instructions Recorded Confirmed Insulin Glargine,Hum.rec.anlog 4 units SUBQ 2100 02/22/13 01/24/21 [Lantus] Atorvastatin [Lipitor] 10 mg PO QPM #0 11/02/17 01/24/21 Clopidogrel [Plavix] 75 mg PO DAILY #0 11/02/17 01/24/21 amLODIPine [Norvasc] 10 mg PO DAILY #0 11/02/17 01/24/21 Esomeprazole Magnesium [Nexium] 40 mg PO BID 01/24/21 01/24/21 Furosemide [Lasix] 60 mg PO DAILY 01/24/21 01/24/21 Hydralazine HCl 50 mg PO QID 01/24/21 01/24/21 Insulin Aspart [NovoLOG] 4 unit SUBQ TIDWM PRN 01/24/21 01/24/21 carvediloL [Coreg] 12.5 mg PO BID 01/24/21 01/24/21 - Allergies Allergies/Adverse Reactions: Allergies Allergy/AdvReac Type Severity Reaction Status Date / Time No Known Drug Allergies Allergy Verified 02/24/21 13:06 - Social History Does the pt smoke?: No Smoking Status: Never smoker Does the pt drink ETOH?: No Does the pt have substance abuse?: No - Immunizations Immunizations are current?: No - POLST Patient has POLST: No POLST Status: Full Code PD ED PE NORMAL - Vitals Vital signs reviewed: Yes - General General: Other (She is alert and oriented but keeping her eyes closed but following commands. She is clutching her forehead in pain.) - HEENT HEENT: EOMI, Other (Opacified left lens with bilaterally small pupils) - Neck Neck: No bony TTP (Contained in a c-collar pending imaging given potential for distracting injury and comorbidities.) - Cardiac Cardiac: RRR, No murmur - Respiratory Respiratory: No respiratory distress, Clear bilaterally - Abdomen Abdomen: Non tender - Back Back: No CVA TTP, No spinal TTP - Derm Derm: Normal color, Warm and dry - Extremities Extremities: No edema, No calf tenderness / cord - Neuro Neuro: Alert and oriented X 3 Eye Opening: To Voice Motor: Obeys Commands Verbal: Oriented GCS Score: 14 Results - Vitals Vitals: Vital Signs - 24 hr 02/24/21 02/24/21 13:00 13:08 Temperature 36.8 C 36.8 C Heart Rate 60 60 Respiratory 16 16 Rate Blood Pressure 120/60 120/60 O2 Saturation 92 92 Oxygen O2 Source [With Activity] Room air O2 Source Room air - Rads (name of study) CT Head and Cspine Radiology: EMP read contemporaneously (NAD) Departure - Departure Disposition: 01 Home, Self Care Clinical Impression: ESRD on dialysis Headache Qualifiers: Headache type: other headache syndrome Qualified Code(s): G44.89 - Other headache syndrome Injury of head and neck Qualifiers: Encounter type: sequela Qualified Code(s): S09.90XS - Unspecified injury of head, sequela; S19.9XXS - Unspecified injury of neck, sequela Condition: Good Record reviewed to determine appropriate education?: Yes Instructions: ED Head Injury Closed Comments: Still needs to go to dialysis today, return for new or worsening symptoms otherwise.
--- NOTE | 2021-02-24 13:08 | CT Report ---
PROCEDURE: HEAD WO INDICATIONS: head injury TECHNIQUE: Noncontrast 4.5 mm thick angled axial sections acquired from the foramen magnum to the vertex. For r adiation dose reduction, the following was used: automated exposure control, adjustment of mA and/or kV according to patient size. COMPARISON: 01/03/2021 and 10/30/2017. FINDINGS: Image quality: Excellent. CSF spaces: Basal cisterns are patent. No extra-axial fluid collections. The ventricles are symmet sonali in size and shape. Brain: No intracranial bleeds or masses. 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 There is cerebral volume loss for age, with resultant ventricular and sulcal prominenc e. There are periventricular and deep white matter chronic small vessel ischemic changes. There is intracranial internal carotid artery and vertebral artery atherosclerosis. Skull and face: Calvarium and visualized facial bones appear intact, without suspicious lesions. Sinuses: Visualized sinuses and mastoids are clear. IMPRESSION: No acute intracranial disease process. Reviewed by: Ariadna Tee MD, PhD on 02/24/2021 1:07 PM PDT Approved by: Ariadna Tee MD, PhD on 02/24/2021 1:07 PM PDT Station ID: [id number]
--- NOTE | 2021-02-24 13:12 | CT Report ---
PROCEDURE: CERVICAL SPINE WO INDICATIONS: head injury TECHNIQUE: Noncontrast 3 mm thick sections acquired from the skull base to the T4 level. Sagittal and coronal r eformats were then constructed. For radiation dose reduction, the following was used: automated exp osure control, adjustment of mA and/or kV according to patient size. COMPARISON: None. FINDINGS: Image quality: Excellent. Bones: No fractures or dislocations. Visualized superior ribs are intact. Spine degenerative disc d isease and facet arthropathy are noted. Soft tissues: Prevertebral soft tissues are normal in thickness. No paravertebral hematomas. No ap ical pneumothoraces. Dual-lumen dialysis catheter noted in the right chest. Partially visualized righ t-sided pleural fluid collection. IMPRESSION: No fracture. No acute osseous lesion. If there is continued clinical concern for pathology, then MRI should be considered for further evaluation. Reviewed by: Ariadna Tee MD, PhD on 02/24/2021 1:11 PM PDT Approved by: Ariadna Tee MD, PhD on 02/24/2021 1:11 PM PDT Station ID: [id number]
[2021-02-24 14:21] VITALS: BP 124/62
== END 2021-02-24 14:17 | disposition home or self-care (01) ==
LOC: EDUNIT# → ED 12:34
DX: S09.90XA Unspecified injury of head, initial encounter (principal); W18.39XA Other fall on same level, initial encounter; Y93.01 Activity, walking, marching and hiking; Y92.129 Unspecified place in nursing home as the place of occurrence of the external cause; E11.22 Type 2 diabetes mellitus with diabetic chronic kidney disease; I12.0 Hypertensive chronic kidney disease with stage 5 chronic kidney disease or end stage renal disease; N18.6 End stage renal disease; Z99.2 Dependence on renal dialysis; Z79.4 Long term (current) use of insulin; M62.81 Muscle weakness (generalized); D72.829 Elevated white blood cell count, unspecified
CPT/HCPCS: 80053; 85025; 99282; 99284

== ENCOUNTER 2021-02-24 14:03 | Outpatient (CLI) | payer MEDICARE, MEDICAID | END 2021-02-24 14:04 | disposition home or self-care (01) | LOC: EMS 14:03 | PROVIDERS: ATTEND Emergency Medicine | DX: R41.0 Disorientation, unspecified (principal) | CPT/HCPCS: A0425; A0428 ==

== ENCOUNTER 2021-02-24 15:55 | Outpatient (CLI) | payer MEDICARE, MEDICAID ==
[2021-02-24 16:59] LABS: BASOPHILS % (AUTO) 0.3 %; EOSINOPHILS # (AUTO) 0.2 10^3/uL (0.0-0.7); EOSINOPHILS % (AUTO) 1.7 %; HCT - HEMATOCRIT 29.4 % (37.0-47.0); HGB - HEMOGLOBIN 9.1 g/dL (12.0-16.0); LYMPHOCYTES # (AUTO) 1.2 10^3/uL (1.5-3.5); LYMPHOCYTES % (AUTO) 10.5 %; MEAN CORPUSCULAR HEMOGLOBIN 30.1 pg (27.0-31.0); MEAN CORPUSCULAR VOLUME 97.4 fL (81.0-99.0); MEAN PLATELET VOLUME 10.4 fL (7.9-10.8); MONOCYTES # (AUTO) 0.8 10^3/uL (0.0-1.0); MONOCYTES % (AUTO) 7.3 %; NEUTROPHILS # (AUTO) 8.7 10^3/uL (1.5-6.6); NEUTROPHILS % (AUTO) 79.7 %; PLT - PLATELET COUNT 285 10^3/uL (130-450); RED BLOOD COUNT 3.02 10^6/uL (4.20-5.40); WHITE BLOOD COUNT 10.9 x10^3/uL (4.8-10.8)
[2021-02-24 17:16] LABS: ALBUMIN 3.1 g/dL (3.2-5.5); ALBUMIN/GLOBULIN RATIO 0.9 (1.0-2.2); BILIRUBIN,TOTAL 0.8 mg/dL (0.2-1.0); CALCIUM 8.7 mg/dL (8.5-10.3); POTASSIUM 5.9 mmol/L (3.5-5.0); TOTAL PROTEIN 6.4 g/dL (6.7-8.2)
[2021-02-24 19:04] LABS: CREATININE 7.9 mg/dL (0.4-1.0)
== END 2021-02-24 23:59 | disposition home or self-care (01) ==
LOC: LAB.R 15:55
DX: M62.81 Muscle weakness (generalized) (principal); N18.6 End stage renal disease; D72.829 Elevated white blood cell count, unspecified
CPT/HCPCS: 80053; 85025

== ENCOUNTER 2021-03-31 20:51 | Emergency (ER) | payer MEDICARE, MEDICAID ==
[2021-03-31] MEDS ORDERED: NITROGLYCERIN 50 MG/250 ML 50 MG/250 ML BOTTLE IV STA (21:01)
[2021-03-31] MEDS: NITROGLYCERIN SL 0.4 MG TABLET SL STA ×2 (21:05→21:31)
[2021-03-31] MEDS ORDERED: MORPHINE 10 MG/ML VIAL IVP STA (21:13)
[2021-03-31] MEDS ORDERED: NITROGLYCERIN SL 0.4 MG TABLET SL STA (21:14)
[2021-03-31 21:16] LABS: BASOPHILS % (AUTO) 0.3 %; EOSINOPHILS # (AUTO) 0.4 10^3/uL (0.0-0.7); EOSINOPHILS % (AUTO) 3.6 %; HGB - HEMOGLOBIN 10.3 g/dL (12.0-16.0); LYMPHOCYTES # (AUTO) 1.2 10^3/uL (1.5-3.5); LYMPHOCYTES % (AUTO) 12.1 %; MEAN CORPUSCULAR HEMOGLOBIN 31.2 pg (27.0-31.0); MEAN CORPUSCULAR HGB CONC 34.3 g/dL (32.0-36.0); MEAN CORPUSCULAR VOLUME 90.9 fL (81.0-99.0); MEAN PLATELET VOLUME 10.2 fL (7.9-10.8); MONOCYTES # (AUTO) 0.8 10^3/uL (0.0-1.0); MONOCYTES % (AUTO) 7.5 %; NEUTROPHILS # (AUTO) 7.9 10^3/uL (1.5-6.6); NEUTROPHILS % (AUTO) 76.2 %; PLT - PLATELET COUNT 287 10^3/uL (130-450); RED CELL DISTRIBUTION WIDTH 14.9 % (12.0-15.0); WHITE BLOOD COUNT 10.3 x10^3/uL (4.8-10.8)
--- NOTE | 2021-03-31 21:47 | ED Physician Documentation ---
ED Addendum - Addendum Addendum: 03/31/21 21:46 Patient was difficult for IV access and I assisted Dr. eVrde by obtaining central access. Procedure note, central line: Verbal informed consent was obtained, risks including bleeding, infection, pneumothorax, arterial puncture, and need for surgery were discussed with the patient. The patient was prepped twice with ChloraPrep. I wore cap, mask, gown, sterile gloves. Full sterile sheet was utilized. Using real-time ultrasound guidance the right internal jugular vein was accessed And the wire was passed. However I could not thread the wire, I wonder if I was hitting her Foster dialysis catheter. Tried several times and was unable to thread the wire. So sheet was removed and the left neck was prepped. Using real-time ultrasound guidance the left internal jugular vein was accessed and using Seldinger technique a triple-lumen 7 Kisw[place]ili central line was placed in standard fashion and sutured into place without immediate complications.
[2021-03-31 21:59] LABS: ALBUMIN 3.7 g/dL (3.2-5.5); ALBUMIN/GLOBULIN RATIO 1.1 (1.0-2.2); ALKALINE PHOSPHATASE 64 IU/L (42-121); ALT ALANINE AMINOTRANSFERASE < 10 IU/L (10-60); AST ASPARTATE AMINOTRANSFERASE 18 IU/L (10-42); BILIRUBIN,TOTAL 1.1 mg/dL (0.2-1.0); BUN - BLOOD UREA NITROGEN 28 mg/dL (6-20); CALCIUM 8.5 mg/dL (8.5-10.3); CARBON DIOXIDE - CO2 28 mmol/L (21-32); CHLORIDE 94 mmol/L (101-111); CREATININE 4.8 mg/dL (0.4-1.0); GFR - MDRD 9 (>89); GLUCOSE 157 mg/dL (70-100); LIPASE 21 U/L (22-51); POTASSIUM 3.6 mmol/L (3.5-5.0); SODIUM 133 mmol/L (135-145); TOTAL PROTEIN 7.2 g/dL (6.7-8.2)
[2021-03-31 22:01] LABS: PLATELET ESTIMATE, MANUAL NORMAL (130-450,000) (NORMAL); PLATELET MORPHOLOGY RARE GIANT PLATELETS (NORMAL); RBC MORPHOLOGY (MULTIPLE) NORMAL APPEARANCE (NORMAL)
--- NOTE | 2021-03-31 22:04 | XRAY Report ---
PROCEDURE: Chest 1 View X-Ray INDICATIONS: Chest pain TECHNIQUE: One view of the chest was acquired. COMPARISON: 10/30/2017 FINDINGS: Cardiomegaly with small bilateral pleural effusions and overlying atelectasis. Increased interstitial markings in both lungs, predominantly in the central/perihilar lungs. There is also hazy groundglass opacity in the lung bases. Overall, findings are consistent with moderate to severe pulmonary edema and cardiogenic pleural effusions. Large-bore dialysis catheter terminates at the cavoatrial junction . Left IJ catheter also terminates near the cavoatrial junction. IMPRESSION: Cardia mentally with moderate pulmonary edema and pleural effusions. Reviewed by: Cecilio Myrick MD on 03/31/2021 10:02 PM PDT Approved by: Cecilio Myrick MD on 03/31/2021 10:02 PM PDT Station ID: [id number]
[2021-03-31 22:47] LABS: B. PARAPERTUSSIS- RESP PCR PAN NOT DETECTED; B. PERTUSSIS- RESP PCR PANEL NOT DETECTED; C. PNEUMONIAE- RESP PCR PANEL NOT DETECTED; CORONAVIRUS 229E-RESP PCR NOT DETECTED; CORONAVIRUS HKU1-RESP PCR NOT DETECTED; CORONAVIRUS NL63-RESP PCR NOT DETECTED; CORONAVIRUS OC43-RESP PCR NOT DETECTED; HUMAN METAPNEUMOVIRUS NOT DETECTED; INFLUENZA A- RESP PCR PANEL NOT DETECTED; INFLUENZA B - RESP PCR PANEL NOT DETECTED; M. PNEUMONIAE- RESP PCR PANEL NOT DETECTED; PARAINFLUENZA VIRUS 1 NOT DETECTED; PARAINFLUENZA VIRUS 2 NOT DETECTED; PARAINFLUENZA VIRUS 3 NOT DETECTED; PARAINFLUENZA VIRUS 4 NOT DETECTED; RHINOVIRUS/ENTEROVIRUS NOT DETECTED; RSV- RESP PCR PANEL NOT DETECTED; SARS-CoV-2 -RESP PCR PANEL NOT DETECTED
[2021-04-01] MEDS ORDERED: ENALAPRILAT 1.25 MG/ML VIAL IVP STA (00:22)
[2021-04-01] MEDS ORDERED: ENOXAPARIN 80 MG/0.8 ML SYRINGE SUBQ STA (00:23)
[2021-04-01] MEDS ORDERED: MORPHINE 2 MG/ML CARPUJECT IVP STA (00:24)
[2021-04-01] MEDS ORDERED: NITROGLYCERIN 2% PASTE TOP STA (03:14)
--- NOTE | 2021-04-01 03:21 | ED Physician Documentation ---
PD HPI DYSPNEA - Stated complaint Stated Complaint: SOA - Chief complaint Chief Complaint: Resp - History obtained from History obtained from: Patient, Friend - History of Present Illness Timing - onset: How many hours ago (1-2), Today Timing - onset during: Rest Timing - duration: Hours (Patient is brought by private vehicle accompanied by her friend. Patient called her friend stating she was having trouble breathing and chest pain. This is unusual for her. Brought to the ER with marked respiratory distress.) Timing - details: Abrupt onset, Still present Inciting event(s): Other (No apparent inciting events. She had her normal dialysis today without any complications. Home and then developed pain in the chest with trouble breathing.). No: Out of meds, URI Improved by: Sitting up. No: Rest Worsened by: Exertion, Laying flat Associated symptoms: Chest pain / discomfort. No: Fever, Cough, Wheezing, Palpitations, Bilateral edema Similar symptoms before: Has not had sx before, Other (The patient has had some episodes of hypotension and lightheadedness postdialysis over the last few months. No episodes of hypertension or chest pain.) Recently seen: Clinic (regular dialysis today with full run. No problems during/just after dialysis.) Review of Systems Unable to obtain: Other (some limitation with language, but her friend and also nursing staff helping.) Constitutional: denies: Fever Nose: denies: Rhinorrhea / runny nose, Congestion Throat: denies: Sore throat Cardiac: reports: Chest pain / pressure. denies: Palpitations, Pedal edema, Calf pain (but has had some pain left hip the past few weeks.) Respiratory: reports: Dyspnea. denies: Cough GI: denies: Abdominal Pain, Nausea, Vomiting, Diarrhea, Bloody / black stool Musculoskeletal: denies: Extremity swelling Neurologic: reports: Generalized weakness, Headache. denies: Focal weakness, Numbness, Near syncope PD PAST MEDICAL HISTORY - Past Medical History Past Medical History: Yes Cardiovascular: Hypertension Respiratory: None Endocrine/Autoimmune: Type 2 diabetes GI: None : Dialysis HEENT: Chronic vision loss Psych: None Musculoskeletal: Osteoarthritis Derm: None - Past Surgical History Past Surgical History: No HEENT: Cataracts - Present Medications Home Medications: Ambulatory Orders Medication Instructions Recorded Confirmed Insulin Glargine,Hum.rec.anlog 4 units SUBQ 2100 02/22/13 01/24/21 [Lantus] Atorvastatin [Lipitor] 10 mg PO QPM #0 11/02/17 01/24/21 Clopidogrel [Plavix] 75 mg PO DAILY #0 11/02/17 01/24/21 amLODIPine [Norvasc] 10 mg PO DAILY #0 11/02/17 01/24/21 Esomeprazole Magnesium [Nexium] 40 mg PO BID 01/24/21 01/24/21 Furosemide [Lasix] 60 mg PO DAILY 01/24/21 01/24/21 Hydralazine HCl 50 mg PO QID 01/24/21 01/24/21 Insulin Aspart [NovoLOG] 4 unit SUBQ TIDWM PRN 01/24/21 01/24/21 carvediloL [Coreg] 12.5 mg PO BID 01/24/21 01/24/21 - Allergies Allergies/Adverse Reactions: Allergies Allergy/AdvReac Type Severity Reaction Status Date / Time No Known Drug Allergies Allergy Verified 03/31/21 21:16 - Living Situation Living Situation: reports: Alone Living Arrangement: reports: At home - Social History Does the pt smoke?: No Smoking Status: Never smoker Does the pt drink ETOH?: No Does the pt have substance abuse?: No - Family History Family history: reports: Non contributory - Immunizations Immunizations are current?: No - POLST Patient has POLST: No POLST Status: Full Code PD ED PE NORMAL - Vitals Vital signs reviewed: Yes (elevated BP with persistence on recheck. Sats low at 80% RA. Improved FM. ) - General General: Well developed/nourished, Other (She is conversant and oriented. Speaks modest [place] and language is assisted with her friend and one of the nursing staff. Unable to get translation line easily at this point. Worse breathing lying reclined. ) - HEENT HEENT: Pharynx benign - Neck Neck: Supple, no meningeal sign, No adenopathy, Other (JVD noted at 45 degrees.) - Cardiac Cardiac: RRR, No murmur - Respiratory Respiratory: No: Clear bilaterally (tachypnea and accessory muscle use. Labored breathing. Crackles heard both lower lung pardo. ) - Abdomen Abdomen: Soft, Non tender - Female Female : Deferred - Rectal Rectal: Deferred - Derm Derm: Normal color, Warm and dry - Extremities Extremities: Normal ROM s pain, No calf tenderness / cord, Other (1+ edmea in both lower legs. No noted calf tenderness. ) - Neuro Neuro: Alert and oriented X 3, No motor deficit, Normal speech Results - Vitals Vitals: Vital Signs - 24 hr 03/31/21 03/31/21 03/31/21 20:55 21:33 21:39 Temperature 36.4 C L Heart Rate 79 80 75 Respiratory 30 H 23 21 Rate Blood Pressure 260/92 H 212/92 H 194/79 H O2 Saturation 80 L 100 100 03/31/21 03/31/21 03/31/21 21:42 21:50 22:02 Temperature Heart Rate 75 77 67 Respiratory 21 28 H 20 Rate Blood Pressure 173/87 H 171/84 H 156/68 H O2 Saturation 100 100 100 03/31/21 03/31/21 03/31/21 22:08 22:15 22:23 Temperature Heart Rate 67 64 62 Respiratory 18 25 H 15 Rate Blood Pressure 154/72 H 148/62 H 113/68 O2 Saturation 100 100 100 03/31/21 03/31/21 03/31/21 22:27 22:33 22:37 Temperature Heart Rate 62 37 L 66 Respiratory 18 17 20 Rate Blood Pressure 113/68 173/69 H 157/69 H O2 Saturation 100 100 100 03/31/21 04/01/21 04/01/21 22:42 00:38 00:45 Temperature Heart Rate 66 67 65 Respiratory 20 16 16 Rate Blood Pressure 159/70 H 138/62 H 133/66 H O2 Saturation 100 96 97 04/01/21 04/01/21 04/01/21 01:22 01:29 01:46 Temperature 36.5 C Heart Rate 72 68 70 Respiratory 17 17 15 Rate Blood Pressure 156/64 H 154/67 H 164/67 H O2 Saturation 100 100 100 04/01/21 04/01/21 04/01/21 01:55 02:00 02:08 Temperature Heart Rate 70 71 74 Respiratory 20 16 16 Rate Blood Pressure 166/66 H 163/66 H 177/69 H O2 Saturation 100 100 100 04/01/21 04/01/21 02:23 02:52 Temperature Heart Rate 68 66 Respiratory 17 15 Rate Blood Pressure 154/69 H 148/66 H O2 Saturation 100 99 Oxygen O2 Source [With Activity] Room air O2 Source Nasal cannula Oxygen Flow Rate 4 - EKG (time done) 21:44 Rate: Rate (enter#) (77) Rhythm: NSR [place]: Normal Intervals: Normal [place] QRS: Normal Ischemia: Normal ST segments. No: ST elevation c/w ischemia, ST depression - Labs Labs: Laboratory Tests 03/31/21 03/31/21 03/31/21 21:08 21:08 21:08 WBC 10.3 RBC 3.30 L Hgb 10.3 L Hct 30.0 L MCV 90.9 MCH 31.2 H MCHC 34.3 RDW 14.9 Plt Count 287 MPV 10.2 Neut # (Auto) 7.9 H Lymph # (Auto) 1.2 L [place] # (Auto) 0.8 Eos # (Auto) 0.4 Baso # (Auto) 0.0 Absolute Nucleated RBC 0.00 Nucleated RBC % 0.0 Platelet Estimate NORMAL (130-450,000) Platelet Morphology RARE GIANT PLATELETS RBC Morph Micro Appear NORMAL APPEARANCE D-Dimer Sodium Potassium Chloride Carbon Dioxide Anion Gap BUN Creatinine Estimated GFR (MDRD) Glucose Calcium Magnesium Total Bilirubin AST ALT Alkaline Phosphatase Troponin I High Sens 14.2 B-Natriuretic Peptide 930 H Total Protein Albumin Globulin Albumin/Globulin Ratio Lipase Nasal Adenovirus (PCR) Nasal B. parapertussis DNA (PCR) Nasal Coronavir 229E PCR Nasal Coronavir HKU1 PCR Nasal Coronavir NL63 PCR Nasal Coronavir OC43 PCR Nasal Enterovir/Rhinovir PCR Nasal Influenza B PCR Nasal Influenza A PCR Nasal Parainfluen 1 PCR Nasal Parainfluen 2 PCR Nasal Parainfluen 3 PCR Nasal Parainfluen 4 PCR Nasal RSV (PCR) Nasal B.pertussis DNA PCR Nasal C.pneumoniae (PCR) Lamin Human Metapneumo PCR Nasal M.pneumoniae (PCR) Nasal SARS-CoV-2 (PCR) 03/31/21 03/31/21 03/31/21 21:30 21:30 21:45 WBC RBC Hgb Hct MCV MCH MCHC RDW Plt Count MPV Neut # (Auto) Lymph # (Auto) [place] # (Auto) Eos # (Auto) Baso # (Auto) Absolute Nucleated RBC Nucleated RBC % Platelet Estimate Platelet Morphology RBC Morph Micro Appear D-Dimer 672.8 H Sodium 133 L Potassium 3.6 Chloride 94 L Carbon Dioxide 28 Anion Gap 11.0 BUN 28 H Creatinine 4.8 H Estimated GFR (MDRD) 9 L Glucose 157 H Calcium 8.5 Magnesium 2.1 Total Bilirubin 1.1 H AST 18 ALT < 10 L Alkaline Phosphatase 64 Troponin I High Sens B-Natriuretic Peptide Total Protein 7.2 Albumin 3.7 Globulin 3.5 Albumin/Globulin Ratio 1.1 Lipase 21 L Nasal Adenovirus (PCR) Nasal B. parapertussis DNA (PCR) Nasal Coronavir 229E PCR Nasal Coronavir HKU1 PCR Nasal Coronavir NL63 PCR Nasal Coronavir OC43 PCR Nasal Enterovir/Rhinovir PCR Nasal Influenza B PCR Nasal Influenza A PCR Nasal Parainfluen 1 PCR Nasal Parainfluen 2 PCR Nasal Parainfluen 3 PCR Nasal Parainfluen 4 PCR Nasal RSV (PCR) Nasal B.pertussis DNA PCR Nasal C.pneumoniae (PCR) Lamin Human Metapneumo PCR Nasal M.pneumoniae (PCR) Nasal SARS-CoV-2 (PCR) 03/31/21 04/01/21 21:45 02:28 WBC RBC Hgb Hct MCV MCH MCHC RDW Plt Count MPV Neut # (Auto) Lymph # (Auto) [place] # (Auto) Eos # (Auto) Baso # (Auto) Absolute Nucleated RBC Nucleated RBC % Platelet Estimate Platelet Morphology RBC Morph Micro Appear D-Dimer Sodium Potassium Chloride Carbon Dioxide Anion Gap BUN Creatinine Estimated GFR (MDRD) Glucose Calcium Magnesium Total Bilirubin AST ALT Alkaline Phosphatase Troponin I High Sens 32.1 H* B-Natriuretic Peptide Total Protein Albumin Globulin Albumin/Globulin Ratio Lipase Nasal Adenovirus (PCR) NOT DETECTED Nasal B. parapertussis DNA (PCR) NOT DETECTED Nasal Coronavir 229E PCR NOT DETECTED Nasal Coronavir HKU1 PCR NOT DETECTED Nasal Coronavir NL63 PCR NOT DETECTED Nasal Coronavir OC43 PCR NOT DETECTED Nasal Enterovir/Rhinovir PCR NOT DETECTED Nasal Influenza B PCR NOT DETECTED Nasal Influenza A PCR NOT DETECTED Nasal Parainfluen 1 PCR NOT DETECTED Nasal Parainfluen 2 PCR NOT DETECTED Nasal Parainfluen 3 PCR NOT DETECTED Nasal Parainfluen 4 PCR NOT DETECTED Nasal RSV (PCR) NOT DETECTED Nasal B.pertussis DNA PCR NOT DETECTED Nasal C.pneumoniae (PCR) NOT DETECTED Lamin Human Metapneumo PCR NOT DETECTED Nasal M.pneumoniae (PCR) NOT DETECTED Nasal SARS-CoV-2 (PCR) NOT DETECTED - Rads (name of study) chest xray Radiology: Prelim report reviewed, EMP read contemporaneously (moderate to severe vascular congestion with small bilateral effusions. ), See rad report PD MEDICAL DECISION MAKING - ED course Complexity details: reviewed results (EKG without ischemic changes. Chest x-ray showing pulmonary edema. BNP is elevated. Troponin is negative. D-dimer is elevated moderately.), re-evaluated patient (Focus of treatment initially on decreasing blood pressure with flash pulmonary edema. Nitroglycerin drip started at 50 mics. This allowed her blood pressure to come down to 1 50-1 40 systolic. She was given supplemental oxygen by facemask. Her breathing improved and CP less with Morphine.), considered differential (Marked respiratory distress with significant hypertension and lung sounds consistent with pulmonary edema. O2 sats are low at 80 on room air but improved with a facemask. No history of CHF or PR. Denies recent illness. Concern for PR/hypertensive urgency/PE/infection.), d/w patient ED course: The patient had difficult peripheral IV access initially and my good colleague in the ER placed a central line to provide central access. The patient did improve in her respiratory status and was able to be relaxed and lies semireclined. Her oxygen requirement decreased and she was titrated down on facemask and then to nasal cannula. She subsequently was able to be on a nasal cannula at 2 L and allowed for 95 to 96% saturation. She is lying more comfortably. The nitroglycerin drip was titrated down as well as her blood pressure remained at a good moderate range. I gave doses of enalapril IV and we are able to subsequently decrease her nitro drip off and replace it with Nitropaste at 1/2 inch. Blood pressure remains in the 1 50-1 60 systolic range and this seems reasonable at this time. It is give a dose of Lovenox 1 mg/kg for a 60 mg dose for concern of PE as a possible cause. Given her chronic renal failure with apparently some slight urine output still, I was concerned about doing a CT angio. VQ scan may be more appropriate but unavailable at this time. She is protected with the anticoagulant. We look for transfer to a higher level of care in the nearby hospitals did not have beds available. Subsequently Dr. Moura at [facility] was able to accept the patient in transfer. She is stable at this time - Critical Care Time(min): 65 Time Includes: Direct patient care, Reassess patient, Document care, Coordinate care, Medical consult Data interpretation: Labs, CXR Procedures excluded from critical care time: Central IV, EKG Departure - Departure Disposition: 02 Transfer Acute Care Hosp Clinical Impression: Flash pulmonary edema, Elevated blood pressure reading, Respiratory distress, ESRD on dialysis Condition: Stable
[2021-04-01] MEDS ORDERED: ONDANSETRON 4 MG/2 ML VIAL IVP STA (03:25)
[2021-04-01 04:08] VITALS: BP 165/67
== END 2021-04-01 04:32 | disposition short-term general hospital (02) ==
LOC: ED 20:51
DX: J81.0 Acute pulmonary edema (principal); E11.22 Type 2 diabetes mellitus with diabetic chronic kidney disease; I12.0 Hypertensive chronic kidney disease with stage 5 chronic kidney disease or end stage renal disease; N18.6 End stage renal disease; Z99.2 Dependence on renal dialysis; Z79.4 Long term (current) use of insulin; Z20.822 Contact with and (suspected) exposure to COVID-19
CPT/HCPCS: 36415; 36556; 71045; 80053; 83690; 83735; 83880; 84484; 85025; 85379; 87631; 93005; 96365; 96366; 96372; 96375; 96376; 99291; A9270; J1650; 0202U; 36569

== ENCOUNTER 2021-04-01 04:28 | Outpatient (CLI) | payer MEDICARE, MEDICAID | END 2021-04-01 04:29 | disposition short-term general hospital (02) | LOC: EMS 04:28 | PROVIDERS: ATTEND Emergency Medicine | DX: J81.0 Acute pulmonary edema (principal) | CPT/HCPCS: A0425; A0426 ==

== ENCOUNTER 2021-07-10 21:06 | Emergency (ER) | payer MEDICAID, MEDICARE ==
--- NOTE | 2021-07-10 21:49 | ED Physician Documentation ---
History of Present Illness - Stated complaint Stated Complaint: ABD PX/HBP/HEADACHE - Chief complaint Chief Complaint: Abd Pain - History obtained from History obtained from: Patient, Friend - History of Present Illness Timing: Enter time (21:00), Today Pain level now: 8 Improved by: no ameliorating factors Worsened by: no exacerbating factors - Additonal information Additional information: chief complaint is epigastric pain that started at 9 PM tonight while at rest at home. This has been waxing and waning since onset, and her friend notes patient's blood pressure was subsequently elevated (219/90) and so friend gave patient a dose of her (patient's) carvedilol. Patient also developed a generalized headache. Patient also c/o dyspnea since earlier tonight. She gets hemodialysis twice per week (Wednesday and Wednesday), but missed Wednesday's appointment but then had HD , and is scheduled for her usual HD tomorrow (Wednesday). Patient's friend says patient has h/o gallstones as well as PUD Review of Systems Constitutional: denies: Fever, Chills, Sweats Cardiac: reports: Reviewed and negative Respiratory: reports: Dyspnea. denies: Cough GI: reports: Abdominal Pain, Nausea. denies: Abdominal Swelling, Vomiting Musculoskeletal: denies: Back pain Neurologic: reports: Headache PD PAST MEDICAL HISTORY - Past Medical History Cardiovascular: Hypertension Respiratory: None Endocrine/Autoimmune: Type 2 diabetes GI: None : Dialysis HEENT: Chronic vision loss Psych: None Musculoskeletal: Osteoarthritis Derm: None - Past Surgical History Past Surgical History: No HEENT: Cataracts - Present Medications Home Medications: Ambulatory Orders Medication Instructions Recorded Confirmed Insulin Glargine,Hum.rec.anlog 4 units SUBQ 2100 02/22/13 07/10/21 [Lantus] Atorvastatin [Lipitor] 10 mg PO QPM #0 11/02/17 07/10/21 Clopidogrel [Plavix] 75 mg PO DAILY #0 11/02/17 07/10/21 amLODIPine [Norvasc] 10 mg PO DAILY #0 11/02/17 07/10/21 Esomeprazole Magnesium [Nexium] 40 mg PO BID 01/24/21 07/10/21 Furosemide [Lasix] 60 mg PO DAILY 01/24/21 07/10/21 Hydralazine HCl 50 mg PO QID 01/24/21 07/10/21 Insulin Aspart [NovoLOG] 4 unit SUBQ TIDWM PRN 01/24/21 07/10/21 carvediloL [Coreg] 12.5 mg PO BID 01/24/21 07/10/21 - Allergies Allergies/Adverse Reactions: Allergies Allergy/AdvReac Type Severity Reaction Status Date / Time No Known Drug Allergies Allergy Verified 07/10/21 21:13 - Social History Does the pt smoke?: No Smoking Status: Never smoker Does the pt drink ETOH?: No Does the pt have substance abuse?: No - Immunizations Immunizations are current?: No - POLST Patient has POLST: No POLST Status: Full Code PD ED PE NORMAL - Vitals Vital signs reviewed: Yes - General General: Alert and oriented X 3, Well developed/nourished, Other (moderate painful distress) - HEENT HEENT: Moist mucous membranes - Cardiac Cardiac: RRR, No murmur - Respiratory Respiratory: No respiratory distress - Abdomen Abdomen: Soft, Non tender, Non distended - Derm Derm: Normal color, Warm and dry PD ED PE EXPANDED - Respiratory Respiratory: Rales (diffuse bilateral rales) Results - Vitals Vitals: Vital Signs - 24 hr 07/10/21 07/10/21 07/10/21 21:13 21:30 21:35 Temperature 36.5 C Heart Rate 70 Respiratory 18 28 H 22 Rate Blood Pressure 149/69 H 180/69 H O2 Saturation 92 80 L 92 07/10/21 07/10/21 07/10/21 22:46 22:55 23:10 Temperature Heart Rate 61 Respiratory 17 18 Rate Blood Pressure 162/72 H O2 Saturation 96 90 L 07/10/21 07/11/21 07/11/21 23:16 00:52 02:05 Temperature Heart Rate 57 L 60 Respiratory 27 H 14 Rate Blood Pressure 154/62 H 157/71 H O2 Saturation 96 89 L 96 07/11/21 07/11/21 07/11/21 02:35 02:47 03:23 Temperature 36.6 C Heart Rate 65 82 Respiratory 20 Rate Blood Pressure O2 Saturation 96 95 07/11/21 05:48 Temperature Heart Rate 76 Respiratory 18 Rate Blood Pressure 185/67 H O2 Saturation 94 Oxygen O2 Source [] Room air O2 Source Nasal cannula Oxygen Flow Rate 4 - EKG (time done) No standard instances Rate: Rate (enter#) (65) Rhythm: NSR [place]: Normal Intervals: Normal [place] QRS: Normal Ischemia: Normal ST segments Computer interpretation: Disagree with computer (no ST elevations including inferior leads) - Labs Labs: Laboratory Tests 07/10/21 07/10/21 07/10/21 22:43 22:43 22:43 WBC 9.2 RBC 3.70 L Hgb 11.3 L Hct 33.7 L MCV 91.1 MCH 30.5 MCHC 33.5 RDW 16.3 H Plt Count 148 MPV 9.7 Neut # (Auto) 7.3 H Lymph # (Auto) 0.7 L [place] # (Auto) 0.8 Eos # (Auto) 0.3 Baso # (Auto) 0.0 Absolute Nucleated RBC 0.00 Nucleated RBC % 0.0 Sodium 132 L Potassium 4.5 Chloride 94 L Carbon Dioxide 25 Anion Gap 13.0 BUN 43 H Creatinine 5.9 H Estimated GFR (MDRD) 7 L Glucose 122 H POC Whole Bld Glucose Calcium 9.2 Total Bilirubin 1.6 H AST 24 ALT 18 Alkaline Phosphatase 63 Troponin I High Sens B-Natriuretic Peptide 1288 H Total Protein 7.3 Albumin 3.9 Globulin 3.4 Albumin/Globulin Ratio 1.1 Lipase 24 Nasal Adenovirus (PCR) Nasal B. parapertussis DNA (PCR) Nasal Coronavir 229E PCR Nasal Coronavir HKU1 PCR Nasal Coronavir NL63 PCR Nasal Coronavir OC43 PCR Nasal Enterovir/Rhinovir PCR Nasal Influenza B PCR Nasal Influenza A PCR Nasal Parainfluen 1 PCR Nasal Parainfluen 2 PCR Nasal Parainfluen 3 PCR Nasal Parainfluen 4 PCR Nasal RSV (PCR) Nasal B.pertussis DNA PCR Nasal C.pneumoniae (PCR) Lamin Human Metapneumo PCR Nasal M.pneumoniae (PCR) Nasal SARS-CoV-2 (PCR) 07/10/21 07/10/21 07/11/21 22:43 22:55 02:41 WBC RBC Hgb Hct MCV MCH MCHC RDW Plt Count MPV Neut # (Auto) Lymph # (Auto) [place] # (Auto) Eos # (Auto) Baso # (Auto) Absolute Nucleated RBC Nucleated RBC % Sodium Potassium Chloride Carbon Dioxide Anion Gap BUN Creatinine Estimated GFR (MDRD) Glucose POC Whole Bld Glucose 165 H Calcium Total Bilirubin AST ALT Alkaline Phosphatase Troponin I High Sens 16.8 H* B-Natriuretic Peptide Total Protein Albumin Globulin Albumin/Globulin Ratio Lipase Nasal Adenovirus (PCR) NOT DETECTED Nasal B. parapertussis DNA (PCR) NOT DETECTED Nasal Coronavir 229E PCR NOT DETECTED Nasal Coronavir HKU1 PCR NOT DETECTED Nasal Coronavir NL63 PCR NOT DETECTED Nasal Coronavir OC43 PCR NOT DETECTED Nasal Enterovir/Rhinovir PCR NOT DETECTED Nasal Influenza B PCR NOT DETECTED Nasal Influenza A PCR NOT DETECTED Nasal Parainfluen 1 PCR NOT DETECTED Nasal Parainfluen 2 PCR NOT DETECTED Nasal Parainfluen 3 PCR NOT DETECTED Nasal Parainfluen 4 PCR NOT DETECTED Nasal RSV (PCR) NOT DETECTED Nasal B.pertussis DNA PCR NOT DETECTED Nasal C.pneumoniae (PCR) NOT DETECTED Lamin Human Metapneumo PCR NOT DETECTED Nasal M.pneumoniae (PCR) NOT DETECTED Nasal SARS-CoV-2 (PCR) NOT DETECTED - Rads (name of study) chest xray Radiology: Prelim report reviewed, See rad report RUQ US Radiology: Prelim report reviewed, See rad report PD MEDICAL DECISION MAKING - ED course Complexity details: reviewed old records, reviewed results, re-evaluated patient, considered differential, d/w patient ED course: Patient had significant improvement in her pain with 4mg IV morphine, although she eventually needed a second dose later in ED stay. On reevaluation, after tests resulted and morphine and zofran were given, she is in NAD, awake and alert . She is noted to be hypoxic on initial evaluation (first set of vital signs in triage indicates pulse ox 92% room air, but when vital signs were rechecked shortly afterwards, pulse ox is 80% room air with tachypnea and increased work of breathing). pulse ox improves to mid 90s with 4 liters [place] oxygen with correlating resolution of tachypnea and work of breathing. However, during ED stay, she would consistently desaturate when oxygen was removed, and she would again become tachypneic and have increased work of breathing. She does not use oxygen at home. CXR is c/w pulmonary edema and her BNP is 1288. It is suspected her hypoxia and dyspnea will improve with hemodialysis, but doing so in the outpatient setting would be difficult given her oxygen requirement. D/W Dr. Salazar (covering for her manager spa, Dr. Carr), agrees patient would be appropriate for inpatient HD. Unfortunately, there are no beds available at any of the hospitals contacted. Given that she is stable and comfortable as long as she is kept on [place] oxygen, will hold in ED until a bed becomes available. Dr. Salazar recommended 80mg IV lasix but only if patient still makes urine, which she does not. Care of patient turned over to oncoming ED physician at end of my shift pending bed availability at an appropriate facility
[2021-07-10] MEDS ORDERED: MORPHINE 2 MG/ML CARPUJECT IVP STA (22:06)
[2021-07-10] MEDS ORDERED: ONDANSETRON 4 MG/2 ML VIAL IVP STA (22:06)
--- NOTE | 2021-07-10 22:31 | XRAY Report ---
PROCEDURE: Chest 1 View X-Ray INDICATIONS: dyspnea, hypoxia TECHNIQUE: One view of the chest was acquired. COMPARISON: 03/31/2021 FINDINGS: Surgical changes and devices: Right-sided dialysis catheter tip is in SVC unchanged from prior study. . Lungs and pleura: There is pulmonary vascular congestion and hazy opacities in bilateral lung pardo suggestive of pulmonary edema versus pneumonitis. Trace bilateral pleural effusion is seen. No gross pneumothorax. Mediastinum: Mediastinal contours appear normal. Heart size is enlarged. Bones and chest wall: No suspicious bony lesions. Overlying soft tissues appear unremarkable. IMPRESSION: Finding is suggestive of CHF. No gross pneumothorax. Reviewed by: Reynaldo Salazar MD on 07/10/2021 10:30 PM PST Approved by: Reynaldo Salazar MD on 07/10/2021 10:30 PM PST Station ID: [id number]
[2021-07-10] MEDS ORDERED: ALBUTEROL NEB 2.5 MG/3 ML INH STA (22:45)
[2021-07-10 22:48] LABS: BASOPHILS % (AUTO) 0.2 %; EOSINOPHILS # (AUTO) 0.3 10^3/uL (0.0-0.7); HCT - HEMATOCRIT 33.7 % (37.0-47.0); HGB - HEMOGLOBIN 11.3 g/dL (12.0-16.0); LYMPHOCYTES # (AUTO) 0.7 10^3/uL (1.5-3.5); LYMPHOCYTES % (AUTO) 7.8 %; MEAN CORPUSCULAR HEMOGLOBIN 30.5 pg (27.0-31.0); MEAN CORPUSCULAR HGB CONC 33.5 g/dL (32.0-36.0); MEAN CORPUSCULAR VOLUME 91.1 fL (81.0-99.0); MEAN PLATELET VOLUME 9.7 fL (7.9-10.8); MONOCYTES # (AUTO) 0.8 10^3/uL (0.0-1.0); MONOCYTES % (AUTO) 8.9 %; NEUTROPHILS # (AUTO) 7.3 10^3/uL (1.5-6.6); NEUTROPHILS % (AUTO) 79.7 %; PLT - PLATELET COUNT 148 10^3/uL (130-450); RED CELL DISTRIBUTION WIDTH 16.3 % (12.0-15.0); WHITE BLOOD COUNT 9.2 x10^3/uL (4.8-10.8)
[2021-07-10 23:01] LABS: ALBUMIN 3.9 g/dL (3.2-5.5); ALBUMIN/GLOBULIN RATIO 1.1 (1.0-2.2); BILIRUBIN,TOTAL 1.6 mg/dL (0.2-1.0); CALCIUM 9.2 mg/dL (8.5-10.3); CREATININE 5.9 mg/dL (0.4-1.0); POTASSIUM 4.5 mmol/L (3.5-5.0); TOTAL PROTEIN 7.3 g/dL (6.7-8.2)
[2021-07-11 00:13] LABS: B. PARAPERTUSSIS- RESP PCR PAN NOT DETECTED; B. PERTUSSIS- RESP PCR PANEL NOT DETECTED; C. PNEUMONIAE- RESP PCR PANEL NOT DETECTED; CORONAVIRUS 229E-RESP PCR NOT DETECTED; CORONAVIRUS HKU1-RESP PCR NOT DETECTED; CORONAVIRUS NL63-RESP PCR NOT DETECTED; CORONAVIRUS OC43-RESP PCR NOT DETECTED; HUMAN METAPNEUMOVIRUS NOT DETECTED; INFLUENZA A- RESP PCR PANEL NOT DETECTED; INFLUENZA B - RESP PCR PANEL NOT DETECTED; M. PNEUMONIAE- RESP PCR PANEL NOT DETECTED; PARAINFLUENZA VIRUS 1 NOT DETECTED; PARAINFLUENZA VIRUS 2 NOT DETECTED; PARAINFLUENZA VIRUS 3 NOT DETECTED; PARAINFLUENZA VIRUS 4 NOT DETECTED; RHINOVIRUS/ENTEROVIRUS NOT DETECTED; RSV- RESP PCR PANEL NOT DETECTED; SARS-CoV-2 -RESP PCR PANEL NOT DETECTED
--- NOTE | 2021-07-11 01:11 | Ultrasound Report ---
PROCEDURE: Abdomen Limited INDICATIONS: abd. pain TECHNIQUE: Real-time focused scanning was performed of the abdomen, with image documentation. COMPARISON: CT of abdomen and pelvis dated 01/10/2021 and 09/10/2020. Renal ultrasound dated 10/21/2017. FINDINGS: Liver is normal in size. Slightly lobulated liver contour with coarsely echogenic liver parenchyma is seen. No discrete hepatic lesion. Single stone is seen in dependent portion of gallbladder lumen measures 1.2 cm in size. No gallbladde r wall thickening or pericholecystic fluid. No sonographic Romo's sign. There is no intrahepatic biliary ductal dilatation. Common bile that measures 4.6 mm in diameter and is within normal limits. Visualized portion of pancreas shows no gross abnormality. Right kidney measures 8.4 cm in length. Increased renal parenchymal echotexture is seen. No discrete solid appearing renal lesion. No hydronephrosis. Incidentally noted is small to moderate right pleural effusion. IMPRESSION: 1. Lobulated liver contour with coarsely echogenic liver parenchyma concerning for developing cirrhos is. No discrete hepatic lesion is seen. 2. Cholelithiasis. No sonographic evidence of acute cholecystitis. No biliary ductal dilatation. 3. Increased renal parenchymal echotexture, concerning for medical renal disease. No hydronephrosis. 4. Small to moderate right-sided pleural effusion. Reviewed by: Reynaldo Salazar MD on 07/11/2021 1:09 AM PST Approved by: Reynaldo Salazar MD on 07/11/2021 1:09 AM PST Station ID: [id number]
[2021-07-11] MEDS ORDERED: MORPHINE 2 MG/ML CARPUJECT IVP STA ×2 (02:46→07:47)
[2021-07-11] MEDS ORDERED: ONDANSETRON 4 MG/2 ML VIAL IVP STA ×2 (05:49→13:03)
[2021-07-11] MEDS ORDERED: hydrALAZINE 25 MG TABLET PO STA (07:46)
[2021-07-11] MEDS ORDERED: FUROSEMIDE 100 MG/10 ML VIAL IVP STA (07:46)
[2021-07-11] MEDS ORDERED: amLODIPine 5 MG TABLET PO STA (07:46)
--- NOTE | 2021-07-11 12:43 | ED Physician Documentation ---
ED Addendum - Addendum Addendum: 07/11/21 12:41 Signout from overnight physician. Briefly patient with history of renal failure, had abdominal pain now resolved but noted to be hypoxic with evidence of CHF both biochemically and on x-ray. At this point we have exhausted the usual methods of transferring the patient for necessary dialysis and we reached out to our ED colleagues at [facility] and she was graciously accepted by Dr. Dex Felix at approximately 12:40 PM and cobras are completed. She is stable for transport on 2 L of oxygen at this time but noting that when the oxygen is removed she does decompensate and become hypoxemic. Disposition transferred to [facility] ED for dialysis Condition serious Diagnoses: 1. Abdominal pain 2. End-stage renal failure 3. Hypoxemia 4. CHF
[2021-07-11] MEDS ORDERED: ISOSORBIDE MONONITRATE ER 30 MG TABLET PO STA (12:48)
[2021-07-11] MEDS ORDERED: ISOSORBIDE MONONITRATE ER 30 MG TABLET PO SCH (13:00)
[2021-07-11 13:24] VITALS: BP 144/70
== END 2021-07-11 13:46 | disposition short-term general hospital (02) ==
LOC: ED 21:06
DX: E11.22 Type 2 diabetes mellitus with diabetic chronic kidney disease (principal); R00.0 Tachycardia, unspecified; I50.9 Heart failure, unspecified; N18.6 End stage renal disease; Z79.4 Long term (current) use of insulin; Z99.2 Dependence on renal dialysis; R09.02 Hypoxemia; I13.2 Hypertensive heart and chronic kidney disease with heart failure and with stage 5 chronic kidney disease, or end stage renal disease; Z20.822 Contact with and (suspected) exposure to COVID-19
CPT/HCPCS: 36415; 71045; 76705; 80053; 83690; 83880; 84484; 85025; 87631; 94640; 96374; 96375; 96376; 99284; 99285; A9270; J1940; 0202U; 93005

== ENCOUNTER 2021-09-11 15:58 | Outpatient (CLI) | payer MEDICARE, MEDICAID | END 2021-09-11 15:59 | disposition critical access hospital (66) | LOC: EMS 15:58 | DX: R09.89 Other specified symptoms and signs involving the circulatory and respiratory systems (principal); R53.1 Weakness | CPT/HCPCS: A0425; A0429 ==

== ENCOUNTER 2021-09-11 16:03 | Emergency (ER) | payer MEDICARE, MEDICAID ==
--- NOTE | 2021-09-11 16:42 | ED Physician Documentation ---
History of Present Illness - Stated complaint Stated Complaint: GENERAL MALIASE - Additonal information Additional information: 70-year-old female is brought to the emergency department for feeling generally unwell. She is togalog speaking. Per EMS she was discharged from [facility] today after a nearly 2-month long stay. While there she was diagnosed with acute hypoxic respiratory failure, fluid overload and required hemodialysis. Patient was discharged and was at her adult family home stating that she was hungry and it hurt to breathe. With the help of a togalog speaking nurse she tells me that the patient is stating that it hurts to breathe simply because she is hungry and she has only eaten oatmeal today. The patient has no fevers or vomiting. In review of the discharge summary from [facility]. It peers that the patient was hospitalized for nearly 2 months. She was diagnosed with generalized weakness and did receive physical therapy and was discharged with a front wheel walker. She is on 2 L nasal cannula at baseline. Review of Systems Unable to obtain: Other (tagalog speaking) Constitutional: denies: Fever, Chills Cardiac: denies: Chest pain / pressure, Palpitations, Pedal edema Respiratory: reports: Dyspnea GI: reports: Abdominal Pain, Reviewed and negative. denies: Nausea, Vomiting : reports: Reviewed and negative Skin: reports: Reviewed and negative Musculoskeletal: reports: Reviewed and negative Neurologic: reports: Generalized weakness. denies: Focal weakness, Numbness, Syncope, Seizure, Confused PD PAST MEDICAL HISTORY - Past Medical History Cardiovascular: Hypertension Respiratory: None Endocrine/Autoimmune: Type 2 diabetes GI: None : Dialysis HEENT: Chronic vision loss Psych: None Musculoskeletal: Osteoarthritis Derm: None - Past Surgical History Past Surgical History: No HEENT: Cataracts - Present Medications Home Medications: Ambulatory Orders Medication Instructions Recorded Confirmed Insulin Glargine,Hum.rec.anlog 4 units SUBQ 2100 02/22/13 07/10/21 [Lantus] Atorvastatin [Lipitor] 10 mg PO QPM #0 11/02/17 07/10/21 Clopidogrel [Plavix] 75 mg PO DAILY #0 11/02/17 07/10/21 amLODIPine [Norvasc] 10 mg PO DAILY #0 11/02/17 07/10/21 Esomeprazole Magnesium [Nexium] 40 mg PO BID 01/24/21 07/10/21 Furosemide [Lasix] 60 mg PO DAILY 01/24/21 07/10/21 Hydralazine HCl 50 mg PO QID 01/24/21 07/10/21 Insulin Aspart [NovoLOG] 4 unit SUBQ TIDWM PRN 01/24/21 07/10/21 carvediloL [Coreg] 12.5 mg PO BID 01/24/21 07/10/21 - Allergies Allergies/Adverse Reactions: Allergies Allergy/AdvReac Type Severity Reaction Status Date / Time No Known Drug Allergies Allergy Verified 09/11/21 16:56 - Social History Does the pt smoke?: No Smoking Status: Never smoker Does the pt drink ETOH?: No Does the pt have substance abuse?: No - Immunizations Immunizations are current?: No - POLST Patient has POLST: No POLST Status: Full Code PD ED PE EXPANDED - General General: Alert, No acute distress, Other (Speaking in toggle log and stating that she is hungry) - Cardiac Cardiac: Regular Rate, Radial strong equal, Pedal strong equal, Cap refill < 2 sec. No: Murmur Present - Respiratory Respiratory: Clear to ausultation ana (CTAB all lung pardo; room air sats 95%. quiet at at rest, non labored; she does become dyspneic when speaking). No: Distress, Labored - Abdomen Abdomen: Normal Bowel sounds. No: Tender to palpation - Derm Derm: Normal color, Warm and dry. No: Rash - Extremities Extremities: Normal. No: Deformity, Tenderness, Pedal edema bilateral - Neuro Neuro: Alert and Oriented X 3, CNII-XII intact - GCS Eye Opening: Spontaneous Motor: Obeys Commands Verbal: Oriented Total: 15 - Psych Psych: Normal Results - Vitals Vitals: Vital Signs - 24 hr 09/11/21 09/11/21 09/11/21 16:15 17:58 19:04 Temperature 36.4 C L Heart Rate 64 58 L 62 Respiratory 18 18 22 Rate Blood Pressure 135/116 H 157/90 H 162/69 H O2 Saturation 95 95 97 Oxygen O2 Source [] Room air O2 Source Room air Oxygen Flow Rate 2 - Labs Labs: Laboratory Tests 09/11/21 09/11/21 09/11/21 19:53 19:53 19:53 WBC 7.9 RBC 2.50 L Hgb 7.8 L Hct 23.1 L MCV 92.4 MCH 31.2 H MCHC 33.8 RDW 15.9 H Plt Count 222 MPV 10.4 Neut # (Auto) 6.5 Lymph # (Auto) 0.5 L Defiance # (Auto) 0.6 Eos # (Auto) 0.3 Baso # (Auto) 0.0 Absolute Nucleated RBC 0.00 Nucleated RBC % 0.0 Sodium 124 L Potassium 4.8 Chloride 87 L Carbon Dioxide 22 Anion Gap 15.0 H BUN 49 H Creatinine 6.2 H Estimated GFR (MDRD) 7 L Glucose 169 H Calcium 9.1 Total Bilirubin 1.0 AST 25 ALT 16 Alkaline Phosphatase 81 B-Natriuretic Peptide 1290 H Total Protein 7.6 Albumin 4.0 Globulin 3.6 Albumin/Globulin Ratio 1.1 Lipase 30 Nasal Adenovirus (PCR) Nasal B. parapertussis DNA (PCR) Nasal Coronavir 229E PCR Nasal Coronavir HKU1 PCR Nasal Coronavir NL63 PCR Nasal Coronavir OC43 PCR Nasal Enterovir/Rhinovir PCR Nasal Influenza B PCR Nasal Influenza A PCR Nasal Parainfluen 1 PCR Nasal Parainfluen 2 PCR Nasal Parainfluen 3 PCR Nasal Parainfluen 4 PCR Nasal RSV (PCR) Nasal B.pertussis DNA PCR Nasal C.pneumoniae (PCR) Lamin Human Metapneumo PCR Nasal M.pneumoniae (PCR) Nasal SARS-CoV-2 (PCR) 09/11/21 20:22 WBC RBC Hgb Hct MCV MCH MCHC RDW Plt Count MPV Neut # (Auto) Lymph # (Auto) Defiance # (Auto) Eos # (Auto) Baso # (Auto) Absolute Nucleated RBC Nucleated RBC % Sodium Potassium Chloride Carbon Dioxide Anion Gap BUN Creatinine Estimated GFR (MDRD) Glucose Calcium Total Bilirubin AST ALT Alkaline Phosphatase B-Natriuretic Peptide Total Protein Albumin Globulin Albumin/Globulin Ratio Lipase Nasal Adenovirus (PCR) NOT DETECTED Nasal B. parapertussis DNA (PCR) NOT DETECTED Nasal Coronavir 229E PCR NOT DETECTED Nasal Coronavir HKU1 PCR NOT DETECTED Nasal Coronavir NL63 PCR NOT DETECTED Nasal Coronavir OC43 PCR NOT DETECTED Nasal Enterovir/Rhinovir PCR NOT DETECTED Nasal Influenza B PCR NOT DETECTED Nasal Influenza A PCR NOT DETECTED Nasal Parainfluen 1 PCR NOT DETECTED Nasal Parainfluen 2 PCR NOT DETECTED Nasal Parainfluen 3 PCR NOT DETECTED Nasal Parainfluen 4 PCR NOT DETECTED Nasal RSV (PCR) NOT DETECTED Nasal B.pertussis DNA PCR NOT DETECTED Nasal C.pneumoniae (PCR) NOT DETECTED Lamin Human Metapneumo PCR NOT DETECTED Nasal M.pneumoniae (PCR) NOT DETECTED Nasal SARS-CoV-2 (PCR) NOT DETECTED - Rads (name of study) CXR Radiology: Final report received (Suspect mild fluid overload/CHF. Cardiomegaly. Suspect mild atelectasis in the left lung.) PD MEDICAL DECISION MAKING - ED course Complexity details: reviewed old records, reviewed results, re-evaluated patient, d/w patient ED course: 70-year-old female is brought to the emergency department for evaluation of bart rtness of breath. She was discharged this afternoon from [facility] after a 2-month stay for generalized fluid overload, generalized weakness and ESRD. While there she was on hemodialysis and is scheduled for hemodialysis tomorrow at outpatient clinic in [place]. History was somewhat limited given the language barrier however our nurse does speak her ramona language. The patient kept insisting that she was simply hungry and that is why she was having pain. While here in the emergency department we allowed her to eat and it did seem to improve the pain. She also endorsed shortness of air. She is on baseline 2 L nasal cannula without hypoxia. Chest x-ray today suggest mild fluid overload. However the patient is scheduled for dialysis tomorrow. At this time no new emergent complication or medical condition seems present and she will be discharged home. She was given Tylenol for pain which also improve the symptoms. Emergent return precautions otherwise discussed. 1830: I have been notified by the nursing staff that [facility] adult family home will not receive the patient back. In conversation with the adult family home they report that while she was there she was yelling and screaming and disruptive to other patients. They also feel that her care needs exceed what they can handle. We did speak to the patient's daughter who informs us that she is unable to hot die picker the patient and cannot take her home or care for her. I did speak with the dialysis social worker Anna Parham at [facility] who arranged discharged to the [facility] for the patient. She is unable to provide assistance but may be reached at Given this concern I did obtain screening labs. CXR does show volume overload. We do note a modest anemia with a hemoglobin of 7.8. Her BNP is elevated at 1290, but seemingly unchanged. Na is 124. No altered mentation. I did speak to [facility], they are unable to accept the patient back in transfer and I also spoke with the ED attending on [place]. He does not accept the patient for ED to ED transfer. Will attempt to find an in-patient bed for further care and treatment for required HD, volume overload, pulmonary edema and hyponatremia. IT is not likely that we could find a timely placement in an [facility] or nursing facility in the next 24-48 hours that could accommodate the patient and without HD she will become volume overloaded and clinically unstable. pt will be signed out to my nighttime colleague Dr. Higgins to follow up on possibility of transfer Departure - Departure Clinical Impression: ESRD (end stage renal disease) on dialysis, Shortness of breath, Generalized weakness, Hyponatremia Anemia Qualifiers: Anemia type: unspecified type Qualified Code(s): D64.9 - Anemia, unspecified Condition: Serious Record reviewed to determine appropriate education?: Yes Comments: Yamila was seen in the emergency department today for shortness of breath. She was discharged from [facility] today after a prolonged stay for fluid overload and end-stage renal disease. Her chest x-ray today does suggest that she needs to receive her dialysis tomorrow. This cannot occur at [facility]. She can not miss her dialysis appointment tomorrow. However her heart rate, vital signs and oxygen levels are all normal and she does not need to be admitted to the hospital. When she came to the emergency department she was complaining of being hungry. We were able to feed her and she felt that her symptoms were better.
[2021-09-11] MEDS ORDERED: ACETAMINOPHEN 325 MG TABLET PO STA (17:01)
--- NOTE | 2021-09-11 17:10 | XRAY Report ---
PROCEDURE: Chest 1 View X-Ray INDICATIONS: chest pain TECHNIQUE: One view of the chest was acquired. COMPARISON: CXR 07/10/2021, 03/31/2021. FINDINGS: Surgical changes and devices: None. Lungs and pleura: No pleural effusions or pneumothorax. Prominent pulmonary vasculature markings. Mi nimal streaky opacity in the mid left lung. Mediastinum: Mediastinal contours appear normal. Heart size is enlarged. Bones and chest wall: No suspicious bony lesions. Overlying soft tissues appear unremarkable. IMPRESSION: Suspect mild fluid overload/CHF. Cardiomegaly. Suspect mild atelectasis in the left midlung. Reviewed by: Chele Traylor MD on 09/11/2021 5:09 PM PST Approved by: Chele Traylor MD on 09/11/2021 5:09 PM PST Station ID: [id number]
[2021-09-11 20:06] LABS: BASOPHILS % (AUTO) 0.4 %; EOSINOPHILS # (AUTO) 0.3 10^3/uL (0.0-0.7); EOSINOPHILS % (AUTO) 3.1 %; HCT - HEMATOCRIT 23.1 % (37.0-47.0); HGB - HEMOGLOBIN 7.8 g/dL (12.0-16.0); LYMPHOCYTES # (AUTO) 0.5 10^3/uL (1.5-3.5); LYMPHOCYTES % (AUTO) 6.2 %; MEAN CORPUSCULAR HEMOGLOBIN 31.2 pg (27.0-31.0); MEAN CORPUSCULAR HGB CONC 33.8 g/dL (32.0-36.0); MEAN CORPUSCULAR VOLUME 92.4 fL (81.0-99.0); MEAN PLATELET VOLUME 10.4 fL (7.9-10.8); MONOCYTES # (AUTO) 0.6 10^3/uL (0.0-1.0); MONOCYTES % (AUTO) 7.7 %; NEUTROPHILS # (AUTO) 6.5 10^3/uL (1.5-6.6); NEUTROPHILS % (AUTO) 82.1 %; PLT - PLATELET COUNT 222 10^3/uL (130-450); RED CELL DISTRIBUTION WIDTH 15.9 % (12.0-15.0); WHITE BLOOD COUNT 7.9 x10^3/uL (4.8-10.8)
[2021-09-11 20:17] LABS: ALBUMIN/GLOBULIN RATIO 1.1 (1.0-2.2); CALCIUM 9.1 mg/dL (8.5-10.3); CREATININE 6.2 mg/dL (0.4-1.0); POTASSIUM 4.8 mmol/L (3.5-5.0); TOTAL PROTEIN 7.6 g/dL (6.7-8.2)
[2021-09-11 21:21] LABS: B. PARAPERTUSSIS- RESP PCR PAN NOT DETECTED; B. PERTUSSIS- RESP PCR PANEL NOT DETECTED; C. PNEUMONIAE- RESP PCR PANEL NOT DETECTED; CORONAVIRUS 229E-RESP PCR NOT DETECTED; CORONAVIRUS HKU1-RESP PCR NOT DETECTED; CORONAVIRUS NL63-RESP PCR NOT DETECTED; CORONAVIRUS OC43-RESP PCR NOT DETECTED; HUMAN METAPNEUMOVIRUS NOT DETECTED; INFLUENZA A- RESP PCR PANEL NOT DETECTED; INFLUENZA B - RESP PCR PANEL NOT DETECTED; M. PNEUMONIAE- RESP PCR PANEL NOT DETECTED; PARAINFLUENZA VIRUS 1 NOT DETECTED; PARAINFLUENZA VIRUS 2 NOT DETECTED; PARAINFLUENZA VIRUS 3 NOT DETECTED; PARAINFLUENZA VIRUS 4 NOT DETECTED; RHINOVIRUS/ENTEROVIRUS NOT DETECTED; RSV- RESP PCR PANEL NOT DETECTED; SARS-CoV-2 -RESP PCR PANEL NOT DETECTED
--- NOTE | 2021-09-12 01:02 | ED Physician Documentation ---
ED Addendum - Addendum Addendum: 09/12/21 00:59 Patient was signed out to me by ELAINA Mares. Briefly the patient is a 70-year-old female history of hemodialysis, recently discharged from [facility] earlier today. She was sent to a adult family home, but she is above their level of care reportedly and have refused to take the patient back. We do not have dialysis available here. The patient has hyponatremia, anemia, pulmonary edema on chest x-ray and an elevated BNP. [facility] was contacted, but they have no beds available inpatient or in the emergency department and refused the patient. [facility] thinks that they may have a bed tomorrow. [facility] in [place] was contacted, it sounds as if they may have had a bed tonight, but they are hospitalist, Dr. Covarrubias states that that he feels that the patient should go to [facility] as she has her wedger here. I informed him that there are no beds available currently at [facility]. He states that if we are unable to find placement in the morning, to recontact [facility] in [place] for transfer. He also states that if the patient worsens prior to finding a bed, recontact them as well for emergent dialysis. The patient will board in the emergency department overnight and we will attempt to recontact [facility] in the morning to see if any beds are available. This document was made in part using voice recognition software. While efforts are made to proofread this document, sound alike and grammatical errors may occur.
[2021-09-12 07:35] LABS: HCT - HEMATOCRIT 21.9 % (37.0-47.0); HGB - HEMOGLOBIN 7.4 g/dL (12.0-16.0)
[2021-09-12 07:48] LABS: ALBUMIN 3.9 g/dL (3.2-5.5); ALBUMIN/GLOBULIN RATIO 1.1 (1.0-2.2); BILIRUBIN,TOTAL 0.9 mg/dL (0.2-1.0); CALCIUM 9.3 mg/dL (8.5-10.3); CREATININE 6.4 mg/dL (0.4-1.0); MAGNESIUM 2.2 mg/dL (1.7-2.8); TOTAL PROTEIN 7.3 g/dL (6.7-8.2)
--- NOTE | 2021-09-12 15:05 | ED Physician Documentation ---
ED Addendum - Addendum Addendum: 09/12/21 15:01 Patient has Remained in the emergency department now for nearly 24 hours. She was discharged from [facility] yesterday after a 2-month long stay. She now has chronic kidney disease requiring 3 times weekly dialysis. Unfortunately the adult family home she was discharged to felt that her care needs were too advanced for them. She was last dialyzed 48 hours ago. While here in the emergency department she has had a chest x-ray that demonstrates cardiomegaly and pulmonary edema. She has had room air or nasal cannula saturations greater than 92%. At rest she is not dyspneic but with activity she does become labored. Screening labs show a marked anemia with a hemoglobin today of 7.4. She is also hyponatremic. Most recent BNP is nearly 1300. Though stable at this time she will certainly clinically decompensate unless she receives dialysis. Unfortunately there is a paucity of beds along the [place]. [facility] was full and could not take her back. They also declined an ED to ED transfer. [facility] was full. [facility] declined due to lack of beds. We did reach out to the [facility] and were ultimately referred to [facility] in [place]. I spoke with Dr. Lund Who has graciously agreed to accept the patient in transfer to their PCU. This patient will certainly be a long- term difficult discharge as she will need to find a intermediate that can accommodate her needs. Appropriate COBRA paperwork completed. Patient will be transported via ALS by [place] ambulance services.
[2021-09-12 16:42] VITALS: BP 172/88
== END 2021-09-12 17:45 | disposition short-term general hospital (02) ==
LOC: EDUNIT# → ED 16:03
DX: D64.9 Anemia, unspecified (principal); E87.1 Hypo-osmolality and hyponatremia; E11.22 Type 2 diabetes mellitus with diabetic chronic kidney disease; Z79.4 Long term (current) use of insulin; I13.2 Hypertensive heart and chronic kidney disease with heart failure and with stage 5 chronic kidney disease, or end stage renal disease; N18.6 End stage renal disease; Z99.2 Dependence on renal dialysis; Z20.822 Contact with and (suspected) exposure to COVID-19; I50.1 Left ventricular failure, unspecified
CPT/HCPCS: 36415; 71045; 80053; 83690; 83735; 83880; 84100; 85014; 85018; 85025; 87631; 99283; 99285; A9270; 0202U